=== PATIENT | male | born 1945 | race Hispanic/Latino ===

== ENCOUNTER 2017-03-27 11:38 | Inpatient (IN) | payer MEDICARE, BC ==
[2017-03-27 11:38] VITALS: PULSE 72
--- NOTE | 2017-03-27 11:47 | ED PDOC ---
Arrival/HPI - General Time Seen by Provider: 03/27/17 11:40 Historian: , EMS - Critical Care Critical Care Minutes: 60 minutes - History of Present Illness Narrative History of Present Illness (Text): 03/27/17 11:41 A 71 year old male brought into the emergency department by EMS in cardiac arrest. As per family, patient was taking a shower when they heard a "thump". They called 911, BLS responded and found patient unresponsive in ventricular fibrillation. Patient was shocked twice, continued in ventricular fibrillation. Medics then responded, patient was shocked again and CPR was performed. Patient was intubated and treated with 1 epinephrine and 300 amiodarone. Patient regained pulse, but is now unresponsive to verbal or painful stimuli. Time/Duration: Prior to Arrival Symptom Course: Unchanged Quality: Other Context: Home Associated Symptoms (Text): 03/27/17 13:10 As per family and EMS. Patient was taking a shower. The heard a thud. She went up into the bathroom to find patient unresponsive. He did hit his head on the toilet and was half in the shower. She called 911. BLS responded and an AED was placed and patient was defibrillated twice. Medics then arrived and found the patient in ventricular fibrillation. He was again defibrillated and given epinephrine. He converted into normal sinus rhythm. He then again went into ventricular fibrillation he was treated with additional defibrillation and amiodarone IV. He converted into normal sinus rhythm. He was intubated in route. He is unresponsive to verbal and painful stimuli. His pupils are fixed and dilated. There is no corneal reflex. Past Medical History - Provider Review Nursing Documentation Reviewed: Yes - Infectious Disease Hx of Infectious Diseases: None - Tetanus Immunization Tetanus Immunization: Unknown - Cardiac Hx Pacemaker: No - Pulmonary Hx Asthma: Yes Hx Chronic Obstructive Pulmonary Disease (COPD): Yes - Neurological Hx Paralysis: No - HEENT Hx HEENT Disorder: No - Renal Hx Renal Disorder: No - Endocrine/Metabolic Hx Hypothyroidism: Yes - Hematological/Oncological Hx Blood Transfusions: No Hx Blood Transfusion Reaction: No - Integumentary Hx Dermatological Disorder: No - Musculoskeletal/Rheumatological Hx Musculoskeletal Disorders: Yes - Gastrointestinal Hx Gastrointestinal Disorders: No - Genitourinary/Gynecological Hx Genitourinary Disorders: No - Psychiatric Hx Emotional Abuse: No Hx Physical Abuse: No Hx Substance Use: No - Surgical History Hx Coronary Stent: Yes (April) Hx Orthopedic Surgery: Yes (right arm) - Anesthesia Hx Anesthesia Reactions: No Hx Malignant Hyperthermia: No - Suicidal Assessment Feels Threatened In Home Enviroment: No Family/Social History - Physician Review Nursing Documentation Reviewed: Yes Family/Social History: No Known Family HX Smoking Status: Former Smoker Hx Alcohol Use: No Hx Substance Use: No Hx Substance Use Treatment: No Allergies/Home Meds Allergies/Adverse Reactions: Allergies No Known Allergies Allergy (Verified 03/27/17 11:44) Home Medications: Home Meds Medication Instructions Recorded Confirmed Arformoterol [Brovana] 15 mcg IH BID 05/10/12 03/27/17 Digoxin 0.25 mg PO QAM 05/10/12 03/27/17 Aspirin [Aspir 81] 81 mg PO DAILY 05/12/12 03/27/17 Atorvastatin [Lipitor] 40 mg PO QPM 05/12/12 03/27/17 Lisinopril 5 mg PO DAILY 05/12/12 03/27/17 Ambrisentan [Letairis] 5 mg PO QAM 01/15/14 03/27/17 Budesonide 1 mg IH BID 05/07/16 05/10/16 Ergocalciferol (Vitamin D2) 50,000 iu PO SUN 05/07/16 03/27/17 [Vitamin D2] Liraglutide [Victoza 2-Rosalio] 1.8 mg SC QAM 05/07/16 03/27/17 Metformin HCl 500 mg PO BID 05/07/16 03/27/17 Theophylline Anhydrous 400 mg PO BID 05/07/16 03/27/17 [Theophylline] Tiotropium [place] Inhaler 1 inhaler INH QAM 05/07/16 03/27/17 [Spiriva Inhalation Handihaler Device] Torsemide 60 mg PO BID 05/07/16 03/27/17 Verapamil [Calan SR Tab] 180 mg PO QAM 05/07/16 03/27/17 Review of Systems - Review of Systems Systems not reviewed;Unavailable: Acuity of Condition Physical Exam Vital Signs Temp Pulse Resp BP Pulse Ox 03/27/17 12:26 86 17 170/84 H 93 L 03/27/17 11:47 98.4 F 85 15 132/68 95 Temperature: Afebrile Blood Pressure: Normal Pulse: Regular Respiratory Rate: Normal Appearance: Positive for: Well-Appearing, Non-Toxic, Comfortable Pain Distress: None Mental Status: Positive for: other (Unresponsive to verbal or painful stimuli) - Systems Exam Head: Present: Atraumatic, Normocephalic Pupils: Present: Other (Fixed and dilated) Extroacular Muscles: Present: Other (no corneal reflex) Conjunctiva: Present: Normal Respiratory/Chest: Present: Decreased Breath Sounds. No: Respiratory Distress, Accessory Muscle Use Cardiovascular: Present: Regular Rate and Rhythm, Normal S1, S2. No: Murmurs Upper Extremity: Present: Normal Inspection. No: Cyanosis, Edema Lower Extremity: Present: Edema (+2 edema bilaterally) Neurological: Present: Other (Patient is unresponsive. Unable to test sensation coordination gait and stance) Skin: Present: Warm, Dry, Normal Color. No: Rashes Psychiatric: Present: Other (Unresponsive to verbal or painful stimuli) Medical Decision Making ED Course and Treatment: 03/27/17 11:41 Impression: A 71 year old male in cardiac arrest. Patient regained pulse, but unresponsive to verbal or painful stimuli. Plan: -- Head CT -- Chest xray -- EKG -- Labs -- Blood and Urine culture -- Urinalysis -- Amiodarone -- Reassess and disposition Progress Notes: 03/27/17 12:16 EKG shows atrial fibrillation rate approximately [address] elevations inferiorly and severe ST depressions laterally right bundle branch block which is new from EKG of 05/10/2016 03/27/17 12:16 Discussed in detail with Dr. Swan who will admit to ' service. Discussed with Dr. Cortes who will treat the patient in the emergency department. Discussed with who is the district recruiter today and who will treat the patient in the emergency department. ICU resident is here. Discussed with . - Lab Interpretations Lab Results: 03/27/17 11:45 03/27/17 11:45 Lab Results 03/27/17 11:45: Sodium 140, Chloride 98, Potassium 3.3 L, Carbon Dioxide 26, Anion Gap 19, BUN 19, Creatinine 1.3, Est GFR ( Amer) > 60, Est GFR (Non- Af Amer) 54, Random Glucose 300 H, Calcium 9.2, Total Bilirubin 0.7, AST 64 H, ALT 36, Alkaline Phosphatase 112, Lactate Dehydrogenase 730 H, Total Creatine Kinase 59, Troponin I 0.02, NT-Pro-B Natriuret Pep 924 H, Total Protein 7.1, Albumin 3.8, Globulin 3.3, Albumin/Globulin Ratio 1.2 03/27/17 11:45: pO2 191 H, VBG pH 6.99 L*, VBG pCO2 108.0 H*, VBG HCO3 26.0, VBG Total CO2 29.3 H, VBG O2 Sat (Calc) 99.8 H, VBG Base Excess -8.0 L, VBG Potassium 3.4 L, Sodium 140.0, Chloride 99.0, Glucose 308 H, Lactate 9.3 H*, FiO2 21.0, Venous Blood Potassium 3.4 L 03/27/17 11:45: PT 19.4 H, INR 1.80 H, APTT 33.0 H 03/27/17 11:45: WBC 20.0 H D, RBC 4.81, Hgb 13.8 L, Hct 44.3, MCV 92.1, MCH 28.7 , MCHC 31.2, RDW 14.6 H, Plt Count 207, MPV 12.2 H, Gran % 60.6, Lymph % (Auto) 29.1, Howard % (Auto) 7.6 H, Eos % (Auto) 2.5, Baso % (Auto) 0.2, Gran # 12.11 H, Lymph # 5.8 H, Howard # 1.5 H, Eos # 0.5, Baso # 0.03 I have reviewed the lab results: Yes - RAD Interpretation Radiology Orders: 03/27/17 11:42 CHEST PORTABLE [RAD] Stat 03/27/17 11:43 HEAD W/O CONTRAST [CT] Stat Chest x-ray one view shows cardiomegaly with the tube in good position. There is a right sided infiltrate. Shop Foreman: ED Physician - Medication Orders Current Medication Orders: Albuterol/Ipratropium (Duoneb 3 Mg/0.5 Mg (3 Ml) Ud) 3 ml IH Q2H PRN PRN Reason: Shortness of Breath Albuterol/Ipratropium (Duoneb 3 Mg/0.5 Mg (3 Ml) Ud) 3 ml IH [id number] LOUISE Amiodarone HCl/Dextrose (Nexterone 360 Mg In D5w 200 Ml (Premix)) 360 mg in 200 mls @ 33.333 mls/hr IV .Q6H LOUISE; 1 MG/MIN PRN Reason: Protocol Last Admin: 03/27/17 12:10 Dose: 33.333 mls/hr Vancomycin HCl (Vancomycin 1gm) 1 gm in 250 mls @ 167 mls/hr IVPB DAILY LOUISE PRN Reason: Protocol Piperacillin Sod/Tazobactam Sod (Zosyn 2.25 Gm In 0.9% 100 Ml) 2.25 gm in 100 mls @ 100 mls/hr IVPB Q6 LOUISE PRN Reason: Protocol Stop: 03/28/17 00:59 Insulin Human Regular (Humulin R Low) 0 units SC ACHS LOUISE PRN Reason: Protocol Discontinued Medications Propofol (Diprivan) Confirm Administered Dose 1,000 mg in 100 mls @ ud .ROUTE .STK-MED ONE Stop: 03/27/17 12:58 Last Admin: 03/27/17 12:55 Dose: 10 mg Propofol (Diprivan) 100 mg IVP ONCE ONE Stop: 03/27/17 13:15 Last Admin: 03/27/17 13:15 Dose: 100 mg - Scribe Statement The provider has reviewed the documentation as recorded by the Binh Pearce Provider Scribe Attestation: All medical record entries made by the Scribe were at my direction and personally dictated by me. I have reviewed the chart and agree that the record accurately reflects my personal performance of the history, physical exam, medical decision making, and the department course for this patient. I have also personally directed, reviewed, and agree with the discharge instructions and disposition. Disposition/Present on Arrival - Present on Arrival Any Indicators Present on Arrival: No History of DVT/PE: No History of Uncontrolled Diabetes: Yes Urinary Catheter: No History of Decub. Ulcer: No History Surgical Site Infection Following: None - Disposition Have Diagnosis and Disposition been Completed?: Yes Diagnosis: Cardiac arrest, Myocardial infarction Disposition: HOSPITALIZED Disposition Time: 13:13 Patient Plan: Admission, ICU Patient Problems: Current Active Problems Problem Status Onset Cardiac arrest Acute Myocardial infarction Acute Condition: CRITICAL
[2017-03-27 12:01] LABS: ADD MANUAL DIFF? NO
[2017-03-27 12:09] LABS: BASO # 0.03 K/mm3 (0.0-2.0); BASO % 0.2 % (0.0-3.0); EOS # 0.5 (0.0-0.7); EOS % 2.5 % (1.5-5.0); GRAN # 12.11 (1.4-6.5); GRAN % 60.6 % (50.0-68.0); HEMATOCRIT 44.3 % (42.0-52.0); LYMPH # 5.8 (1.2-3.4); LYMPH % 29.1 % (22.0-35.0); MEAN CELL VOLUME 92.1 fL (80.0-105.0); MEAN CORPUSCULAR HEMOGLOBIN 28.7 pg (25.0-35.0); MEAN CORPUSCULAR HGB CONC 31.2 g/dl (31.0-37.0); MEAN PLATELET VOLUME 12.2 fl (7.0-11.0); MONO # 1.5 (0.1-0.6); MONO % 7.6 % (1.0-6.0); PLATELET COUNT 207 10^3/uL (120.0-450.0); RED CELL DISTRIBUTION WIDTH 14.6 % (11.5-14.5); VENOUS BLOOD PH 6.99 (7.32-7.43)
[2017-03-27] MEDS: Amiodarone 360 mg/D5W 200 ml 360 MG/200 ML BAG IV SCH ×3 (12:10→19:30)
[2017-03-27 12:14] LABS: ALB/GLOB RATIO 1.2 (1.1-1.8); ALKALINE PHOSPHATASE 112 U/L (38-133); ALT/SGPT 36 U/L (7-56); AST/SGOT 64 U/L (15-59); BILIRUBIN,TOTAL 0.7 mg/dL (0.2-1.3); BLOOD UREA NITROGEN 19 mg/dL (7-21); CALCIUM 9.2 mg/dL (8.4-10.5); CARBON DIOXIDE 26 mmol/L (21-33); CHLORIDE 98 mmol/L (98-107); GFR AFRICAN-AMERICAN > 60; GLUCOSE,RANDOM 300 mg/dL (70-110); POTASSIUM 3.3 mmol/L (3.6-5.0); SODIUM 140 mmol/L (132-148); TOTAL PROTEIN 7.1 g/dL (5.8-8.3)
[2017-03-27 12:15] LABS: INR 1.8 (0.93-1.08)
[2017-03-27 12:26] LABS: TROPONIN I 0.02 ng/mL
--- NOTE | 2017-03-27 12:36 | RAD ---
HISTORY: post arrest COMPARISON: 12/02/2016. FINDINGS: LUNGS: No active pulmonary disease. PLEURA: Bilateral alveolar infiltrates right greater than left. Findings left lung partially obscured by cardiomegaly and rotation. CARDIOVASCULAR: Cardiomegaly. No evidence of acute, significant cardiovascular disease. OSSEOUS STRUCTURES: No significant abnormalities. VISUALIZED UPPER ABDOMEN: Normal. OTHER FINDINGS: Satisfactory position of endotracheal tube and nasogastric tube. IMPRESSION: Bilateral infiltrates alveolar right greater than left. Satisfactory position of support apparatus.
[2017-03-27] MEDS ORDERED: Propofol 10 mg/ml 1,000 MG/100 ML VIAL ONE (12:57)
[2017-03-27] MEDS ORDERED: Propofol 10 mg/ml Inj (20 ML) IVP ONE (13:14)
[2017-03-27] MEDS ORDERED: Albuterol-Ipratrop 3 mg / 0.5 (3 ml) UD IH PRN (13:49)
[2017-03-27] MEDS ORDERED: Albuterol-Ipratrop 3 mg / 0.5 (3 ml) UD IH SCH (14:00)
[2017-03-27 14:19] VITALS: BMI 39.4
[2017-03-27 14:27] LABS: ARTERIAL BLOOD GAS HCO3 29.2 mmol/L (21-28); ARTERIAL BLOOD GAS O2 CAPACITY 18.3 mL/dl (16-24); ARTERIAL BLOOD GAS O2 CONTENT 17.8 ML/dl (15-23); ARTERIAL BLOOD HGB O2 SAT 94.8 % (95.0-98.0); CARBOXYHEMOGLOBIN 1.8 % (0.5-1.5); HHB 2.5 % (0-5); METHEMOGLOBIN 0.9 % (0.0-3.0)
[2017-03-27 14:29] LABS: URINE BILIRUBIN NEGATIVE (NEGATIVE); URINE BLOOD LARGE (NEGATIVE); URINE GLUCOSE (UA) 250 mg/dL (NEGATIVE); URINE KETONE NEGATIVE (NEGATIVE); URINE LEUKOCYTE ESTERASE NEGATIVE Leu/uL (NEGATIVE); URINE PROTEIN >=300 mg/dL (<30 mg/dL)
[2017-03-27 14:31] LABS: ARTERIAL BLOOD GAS PH 7.17 (7.35-7.45)
--- NOTE | 2017-03-27 14:34 | CT ---
PROCEDURE: CT HEAD WITHOUT CONTRAST. HISTORY: ams COMPARISON: None available. TECHNIQUE: Axial computed tomography images were obtained through the head/brain without intravenous contrast. Radiation dose: Total exam DLP = 774 mGy-cm. This CT exam was performed using one or more of the following dose reduction techniques: Automated exposure control, adjustment of the mA and/or kV according to patient size, and/or use of iterative reconstruction technique. FINDINGS: HEMORRHAGE: No intracranial hemorrhage. BRAIN: 3 cm mass inthe high left frontal lobe with vasogenic edema.. No atrophy or chronic microvascular ischemic changes. VENTRICLES: Unremarkable. No hydrocephalus. CALVARIUM: Unremarkable. PARANASAL SINUSES: Unremarkable as visualized. No significant inflammatory changes. MASTOID AIR CELLS: Unremarkable as visualized. No inflammatory changes. OTHER FINDINGS: None. IMPRESSION: 3 cm mass in the left lhigh frontal lobe with vasogenic edema. Question intraparenchymal versus extra axial mass.
[2017-03-27 14:37] LABS: URINE APPEARANCE CLOUDY (CLEAR); URINE COLOR YELLOW (YELLOW)
[2017-03-27 14:39] LABS: URINE AMORPHOUS SEDIMENT MODERATE; URINE RBC TNTC /hpf (0-2)
[2017-03-27] MEDS: Vancomycin 1gm in NS 250ml 1 GM/250 ML BAG IVPB SCH (14:40)
[2017-03-27 15:42] LABS: VENOUS BLOOD GAS BASE EXCESS -0.6 mmol/L (0.0-2.0); VENOUS BLOOD PH 7.27 (7.32-7.43)
[2017-03-27] MEDS: Insulin Reg-LOW-Coverage SC SCH ×2 (16:02→21:58)
[2017-03-27] MEDS ORDERED: Sodium Chloride 0.9% 1,000 ML IV SCH (16:45)
--- NOTE | 2017-03-27 17:16 | CON ---
DATE: 03/27/2017 REQUESTING PHYSICIAN: Dr. Swan. CHIEF COMPLAINT: The patient presented with having fallen in the bathroom at home and cardiac arrest secondary to ventricular fibrillation. HISTORY OF PRESENT ILLNESS: The patient is a 71-year-old morbidly obese male with a history of obstr uctive sleep apnea, COPD, coronary artery disease with stents, hypothyroidism, diabetes, hypertension who presented to the hospital having been found in the bathroom and family stated that he had fallen and EMS found the patient in cardiac arrest, CPR was done. The patient had required CPR and shocks x 3. At this time, he has been admitted to the intensive care unit. The patient upon arrival to the hospital was intubated on the ventilator and continues to require ventilator assistance. He has pup ils that are fixed and is unresponsive at this time. PAST MEDICAL HISTORY: As above. ALLERGIES: No known allergies. CURRENT MEDICATIONS: Can be evaluated as per the nurse's intake form. SOCIAL HISTORY: The patient is a former smoker. No ETOH abuse. No drug abuse. FAMILY HISTORY: Noncontributory. REVIEW OF SYSTEMS: Unable to obtain secondary to the fact that the patient is unresponsive on the ve ntilator. PHYSICAL EXAMINATION: VITAL SIGNS: His temperature is 98.4, his pulse is 86, respirations are 17, and BP is 170/84. SKIN: Warm and dry. HEAD: Atraumatic, normocephalic. EYES: Fixed and dilated. EARS, NOSE AND THROAT: Seem to be within normal limits. NECK: Supple, no JVD, no thyroid enlargement, no lymph nodes. HEART: Has regular rate and rhythm, normal S1, S2. LUNGS: Reveal bilateral rhonchi. ABDOMEN: Soft, obese. Decreased bowel sounds. No organomegaly noted. GENITALIA AND RECTAL: Deferred. MUSCULOSKELETAL: No joint deformities. EXTREMITIES: Reveal 2+ lower extremity edema. NEUROLOGIC: The patient is unresponsive on the ventilator. LABORATORY DATA: As far as his chest x-ray is concerned, patient has bilateral alveolar infiltrates, right greater than left. His laboratories reveal a white count of 20.0, hemoglobin 13.8, hematocrit 44.3 with platelets of 207,000. The patient's PT is 19.4, INR is 1.8 and PTT is 33. Sodium is 140, potassium 3.3, chloride 98, CO2 of 26 with a BUN of 19, creatinine of 1.3 and a random glucose is 30 0. Note the LDH is 730. BNP is 924. IMPRESSION: This patient has had ventricular fibrillation arrest in the field/cardiac arrest and pre sently has respiratory failure requiring ventilator support. The patient has encephalopathy, most li norm anoxic in origin and bilateral pneumonia, possible aspiration being in the etiology. He has obst ructive sleep apnea, coronary artery disease, diabetes, hypertension, morbid obesity, hypothyroidism, coronary artery disease with stents placed. PLAN: We will continue with ventilator support. At present, his FIO2 is 80% and we will follow his chest x-ray and arterial blood gas closely. The patient had a CT scan of the head and official resul ts are pending. We will continue with amiodarone and propofol and continue with aggressive pulmonary toilet. The patient will get antibiotics of Zosyn and vancomycin and we will call for ID consult. The patient has had consults from neuro as well as neurosurgery. We will follow his electrolytes and correct as needed. Also, will get septic workup and we will continue to treat aggressively along wi th the other consultants and the primary care doctor. Antonio Petersen MD cc: [id number] TT: 03/27/2017 17:16:02 Confirmation # [id number] Dictation # [id number] misa
[2017-03-27 17:30] LABS: ABG MECHANICAL RATE 20; ARTERIAL BLOOD GAS HCO3 13.8 mmol/L (21-28); ATERIAL BLOOD GAS PEEP 8
[2017-03-27 17:31] LABS: ARTERIAL BLOOD GAS PH 7.18 (7.35-7.45)
[2017-03-27] MEDS ORDERED: Sodium Bicarbonate (8.4%) 50 Meq Syringe IVP ONE (17:36)
[2017-03-27] MEDS: Propofol 10 mg/ml 1,000 MG/100 ML VIAL IV PRN (17:43)
[2017-03-27] MEDS ORDERED: Piperacillin/Tazobact 2.25gm 2.25 GM/100 ML BAG IVPB SCH (18:00)
--- NOTE | 2017-03-27 18:12 | CON ---
DATE: 03/27/2017 Cardiology consultation (For Dr. Luu). HISTORY OF PRESENT ILLNESS: The patient is a 71-year-old male who had a witnessed syncopal episode, which was associated with CPR as well as 3 episodes of defibrillation by EMS. The patient arrived in the Emergency Room intubated. PAST MEDICAL HISTORY: Is notable for PTCA and stent by Dr. Luu x 3. He suffers from hypertension and hypercholesterolemia. According to the family, he denies chest pain recently. He suffers from hypertension and diabetes me llitus. REVIEW OF SYSTEMS: Unavailable. PHYSICAL EXAMINATION: VITAL SIGNS: Blood pressure is 170/84, the heart rate is in the 70's. NECK: Negative JVD. LUNGS: Decreased breath sounds without rales. HEART: Reveals S1, S2. EXTREMITIES: Without edema. LABORATORIES: Shows diffuse ST-T changes consistent with coronary and possible brain ischemia and me tabolic abnormalities. His first troponin is negative. Glucose is 300. Potassium is 3.3 with a hemoglobin of 13.8. IMPRESSION: 1. Ventricular fibrillation arrest. 2. Cardiopulmonary arrest. 3. History of coronary artery disease. 4. Diabetes mellitus. 5. Hypertension. 6. Anoxic encephalopathy. His CT scan of the head shows no bleed, but however, shows a 3 cm mass in the frontal lobe. This may be an incidental finding and unlikely related to his acute event. Given these findings, the patient will need continued hemodynamic support. I have discussed with the oracle forms developer about possible cooling protocol for his acute anoxic encephalopathy. Je Cortes MD cc: [id number] TT: 03/27/2017 18:11:52 Confirmation # [id number] Dictation # [id number] kelsey
--- NOTE | 2017-03-27 19:09 | HP ---
I saw the patient in the intensive care unit, bed 3. He came to the Emergency Room with a cardiac arrest. He is a 71-year-old man who through the 's history was taking a shower, then they heard a thump and called 911. BLS responded and found patient unresponsive in ventricular fibrillation, was shocked twice in the field. Continued ventricular fibrillation and was shocked again and CPR was performed. He was intubated, given epinephrine and amiodarone. He regained a pulse, still unresponsive in the intensive care unit now on the ventilator, multiple antibiotics and fluids. He is unable to respond to verbal or painful stimuli. He is currently in bed with multiple shocking tremor type motions. PAST MEDICAL HISTORY: He has a past medical history of COPD, asthma, hypothyroid, musculoskeletal issues, coronary stent in April in the right arm. FAMILY HISTORY: Hypertension in the family. SOCIAL HISTORY: He is a former smoker, no alcohol, no drugs. ALLERGIES: No known drug allergies. MEDICATIONS: He is on Brovana, digoxin, aspirin, Lipitor, lisinopril, Letairis , budesonide, vitamin D. He was on a Z-Pack, metformin, theophylline, anhydrase , Tiotropium bromide inhaler, Spiriva, torsemide, verapamil. He was recently just in his primary care doctor's office about a week and a half ago. REVIEW OF SYSTEMS: He is unresponsive on the ventilator. PHYSICAL EXAMINATION: VITAL SIGNS: She has 98.4 temp, 85 pulse, 15 respiratory rate, 170/84 and 132/ 68 blood pressures, 95% O2 sat. GENERAL: Head atraumatic, normocephalic. He is not alert. HEART: Regular rate. LUNGS: Decreased breath sounds but clear to auscultation, mild congestion. ABDOMEN: Soft, obese, nontender to palpation. No palpable masses appreciated. EXTREMITIES: With +2 edema. NEUROLOGIC: He is unresponsive. NECK: Thyroid midline. LABORATORY DATA: He had multiple tests. He has a urine which shows large blood , moderate amorphous sediment, leukocytes are negative. Had a 140 sodium, potassium 3.3; he will get some potassium replacement. BUN 19, creatinine 1.3, GFR is 54, sugar is 300, will put him on insulin coverage. Calcium is 9.2, total bili is 0.7, AST is 64, ALT is 36, alkaline phosphatase 112/50, lactic dehydrogenase is 730. Total creatine kinase 59, troponin 0.02. BNP was 924. Total protein 7.1, albumin 3.8. Blood gas showed a pO2 of 86 and 62. He has a 1.8 INR. White count is 20,000, hemoglobin 13.8, hematocrit 44.3, platelets of 207. He had a chest x-ray, which showed bilateral infiltrates, right greater than left. He also had a CAT scan of the head, and this showed a 3 cm brain mass high left frontal lobe, vasogenic edema. He is going to have multiple consults with the aircraft load controller, cardiology, pulmonology, infectious disease, neurologist. He is on amiodarone, propofol, albuterol, insulin coverage, Keppra, potassium replacement, propofol, IV fluids , vancomycin and Zosyn. He is in deep trouble. He is in the intensive care unit with cardiac arrest, a 3 cm brain mass, bilateral pneumonia, congestive heart failure, low potassium, leukocytosis versus sepsis. Continue with aggressive treatment and care. I discussed at length with the family, the wood bucker and the aircraft load controller and also went over with the resident orders. Will continue with aggressive treatment and care in the intensive care unit. Chepe Swan DO cc: [id number] TT: 03/27/2017 19:07:59 dn [email or web address]
[2017-03-27] MEDS ORDERED: levETIRAcetam 1,000 MG in Sodium Chloride 0.9% 100 ML IV ONE (19:15)
[2017-03-27] MEDS: Albuterol-Ipratrop 3 mg / 0.5 (3 ml) UD IH SCH ×2 (20:00)
[2017-03-27 20:35] LABS: POTASSIUM 4.1 mmol/L (3.6-5.0)
[2017-03-27 20:51] LABS: TROPONIN I 2.51 ng/mL
[2017-03-27] MEDS: Meropenem 1g/NS 100mL IVPB 1 GM/100 ML PIGGYBACK IVPB SCH (21:59)
[2017-03-28] MEDS: Amiodarone 360 mg/D5W 200 ml 360 MG/200 ML BAG IV SCH ×3 (01:42→12:00)
[2017-03-28 02:24] LABS: VENOUS BLOOD GAS BASE EXCESS -4.3 mmol/L (0.0-2.0); VENOUS BLOOD PH 7.14 (7.32-7.43)
[2017-03-28] MEDS: Propofol 10 mg/ml 1,000 MG/100 ML VIAL IV PRN ×4 (02:29→21:33)
[2017-03-28] MEDS: Albuterol-Ipratrop 3 mg / 0.5 (3 ml) UD IH SCH ×4 (02:30→20:00)
[2017-03-28 03:43] LABS: TROPONIN I 3.02 ng/mL
[2017-03-28 05:52] LABS: ARTERIAL BLOOD GAS HCO3 26.5 mmol/L (21-28); ARTERIAL BLOOD GAS PH 7.26 (7.35-7.45)
[2017-03-28 07:17] LABS: MAGNESIUM 1.9 mg/dL (1.7-2.2); PHOSPHOROUS 4.3 mg/dL (2.5-4.5)
[2017-03-28] MEDS: Budesonide 0.5 mg/2 ml Inhal Susp UD IH SCH ×2 (07:40→20:00)
--- NOTE | 2017-03-28 08:10 | CON ---
DATE: 03/27/2017 HISTORY OF PRESENT ILLNESS: A 71-year-old male brought by EMS with a cardiac arrest. The patient wa s taking shower when they heard thump. The patient fell, called 911. The patient became unresponsiv e and was in ventricular fibrillation. The patient was shocked 2-3 times and intubated and brought h im here. PAST MEDICAL HISTORY: Asthma and coronary stents and orthopedic surgery, right arm. ALLERGIES: No known drug allergies. HOME MEDICATIONS: Digoxin, aspirin, atorvastatin, Lipitor, lisinopril, metformin, PHYSICAL EXAMINATION: The patient is unresponsive, intubated. The patient will occasionally have a jerking movement, possibly secondary to hypoxia. Blood pressure 132/68. Unresponsive, not following any commands. Spontaneous movement of the extremities noted. Deep tendon reflexes 1+. Both planta rs downgoing. Sensory, cerebellar gait deferred. IMPRESSION: Hypoxic encephalopathy, status post cardiac arrest and CAT scan of the head was done and showed left frontal mass, possibly meningioma. LABORATORY DATA: WBC 20, hemoglobin 13.8, hematocrit 44.3, platelet 207, glucose low, sodium 140, po tassium 3.3, chloride 98, CO2 of 26, glucose 300, BUN 19, creatinine 1.3 and workup in progress. CAT scan of the head was done. IMPRESSION AND PLAN: The patient was also seen by Dr. Cortes, the inspector open die, and there was a 3 cm m ass in the left frontal lobe and called consult for neurosurgeon, , and gave him 2 mg of Ativan for jerking movement and also put him on Keppra. Prognosis guarded. Follow up. Zeke Mills MD cc: [id number] TT: 03/28/2017 03:05:42 Confirmation # [id number] Dictation # [id number] mn
[2017-03-28] MEDS: Meropenem 1g/NS 100mL IVPB 1 GM/100 ML PIGGYBACK IVPB SCH ×2 (09:04→21:17)
[2017-03-28] MEDS: Vancomycin 1gm in NS 250ml 1 GM/250 ML BAG IVPB SCH (09:06)
[2017-03-28 09:10] LABS: BASO # 0.01 K/mm3 (0.0-2.0); GRAN # 21.69 (1.4-6.5); GRAN % 90.3 % (50.0-68.0); HEMATOCRIT 39.7 % (42.0-52.0); LYMPH # 0.6 (1.2-3.4); LYMPH % 2.5 % (22.0-35.0); MEAN CELL VOLUME 87.8 fL (80.0-105.0); MEAN CORPUSCULAR HEMOGLOBIN 27.9 pg (25.0-35.0); MEAN CORPUSCULAR HGB CONC 31.7 g/dl (31.0-37.0); MEAN PLATELET VOLUME 11.9 fl (7.0-11.0); MONO # 1.7 (0.1-0.6); MONO % 7.2 % (1.0-6.0); PLATELET COUNT 183 10^3/uL (120.0-450.0); RED CELL DISTRIBUTION WIDTH 14.8 % (11.5-14.5); VENOUS BLOOD GAS BASE EXCESS 0.5 mmol/L (0.0-2.0); VENOUS BLOOD PH 7.26 (7.32-7.43)
[2017-03-28 09:11] LABS: ADD MANUAL DIFF? NO
--- NOTE | 2017-03-28 09:18 | CARD ---
APPROVED REPORT EKG Measurement Heart [id number] <Conclusion> Atrial fibrillation Right bundle branch block ST elevation, consider inferior injury or acute infarct ACUTE RI STTW changes c/w ischemia
[2017-03-28] MEDS: Insulin Reg-LOW-Coverage SC SCH ×2 (09:23→14:25)
[2017-03-28 09:26] LABS: ALB/GLOB RATIO 1.2 (1.1-1.8); BILIRUBIN,TOTAL 0.7 mg/dL (0.2-1.3); CALCIUM 8.9 mg/dL (8.4-10.5); POTASSIUM 3.6 mmol/L (3.6-5.0); TOTAL PROTEIN 6.8 g/dL (5.8-8.3)
--- NOTE | 2017-03-28 10:52 | RAD ---
HISTORY: intubated COMPARISON: 03/27/2017 FINDINGS: LUNGS: There is a pattern of pulmonary edema that is unchanged right greater than left. Endotracheal and nasogastric tube in satisfactory position PLEURA: No significant pleural effusion identified, no pneumothorax apparent. CARDIOVASCULAR: Moderate cardiomegaly OSSEOUS STRUCTURES: No significant abnormalities. VISUALIZED UPPER ABDOMEN: Normal. OTHER FINDINGS: None. IMPRESSION: There is a pattern of pulmonary edema that is unchanged right greater than left. Endotracheal and nasogastric tube in satisfactory position
--- NOTE | 2017-03-28 11:31 | CP.PCM.CON ---
History of Present Illness - History of Present Illness History of Present Illness: 71 year old male with PMH of CAD S/P PCI, chronic CHF, DM, HTN, hyothyroidism, history of right arm surgery was brought in to [facility] after he was found unresponsive in the bathroom and sustaining a fall with possible head trauma. EMS was called and arrived in the patient's home and BLS and ACLS were initiated and the patient was resuscitated (which included cardiac defibrillation) and was intubated in the field. In the ED, the patient was found to have unconscious and placed on the ventilator. The patient was noted to be hypothermic and with leukocytosis. He was immediately brought to the ICU for closer observation and management. Patient is being treated for possible acute coronary event. Infectious diseases consult is requested to further evaluate and manage for the possibility of sepsis in this patient. Review of Systems - Review of Systems All systems: reviewed and no additional remarkable complaints except (as per HPI ) Past Patient History - Infectious Disease Hx of Infectious Diseases: None - Tetanus Immunizations Tetanus Immunization: Unknown - Past Social History Smoking Status: Former Smoker - CARDIAC Hx Congestive Heart Failure: Yes Hx Pacemaker: No - PULMONARY Hx Asthma: Yes Hx Chronic Obstructive Pulmonary Disease (COPD): Yes - NEUROLOGICAL Hx Neurological Disorder: No - HEENT Hx HEENT Problems: No - RENAL Hx Chronic Kidney Disease: No - ENDOCRINE/METABOLIC Hx Diabetes Mellitus Type 2: Yes Hx Hypothyroidism: Yes - HEMATOLOGICAL/ONCOLOGICAL Hx Blood Disorders: No - INTEGUMENTARY Hx Dermatological Problems: No - MUSCULOSKELETAL/RHEUMATOLOGICAL Hx Falls: Yes - GASTROINTESTINAL Hx Gastrointestinal Disorders: No - GENITOURINARY/GYNECOLOGICAL Hx Genitourinary Disorders: No - PSYCHIATRIC Hx Emotional Abuse: No Hx Physical Abuse: No - SURGICAL HISTORY Hx Coronary Stent: Yes (April) Hx Orthopedic Surgery: Yes (right arm) - ANESTHESIA Hx Anesthesia Reactions: No Hx Malignant Hyperthermia: No Meds Allergies/Adverse Reactions: Allergies Allergy/AdvReac Type Severity Reaction Status Date / Time No Known Allergies Allergy Verified 03/27/17 11:44 - Medications Medications: Current Medications Albuterol/Ipratropium (Duoneb 3 Mg/0.5 Mg (3 Ml) Ud) 3 ml IH Q2H PRN PRN Reason: Shortness of Breath Albuterol/Ipratropium (Duoneb 3 Mg/0.5 Mg (3 Ml) Ud) 3 ml IH [id number] LOUISE Last Admin: 03/28/17 02:30 Dose: 3 ml Vancomycin HCl (Vancomycin 1gm) 1 gm in 250 mls @ 167 mls/hr IVPB DAILY LOUISE PRN Reason: Protocol Last Admin: 03/27/17 14:40 Dose: 167 mls/hr Propofol (Diprivan) 1,000 mg in 100 mls @ 3.742 mls/hr IV .Q24H PRN; Protocol; 5 MCG/KG/MIN PRN Reason: TITRATE PER MD ORDER Last Titration: 03/28/17 05:59 Dose: 30 mcg/kg/min, 22.453 mls/hr Sodium Bicarbonate 100 meq/ (Sodium Chloride) 1,100 mls @ 50 mls/hr IV .Q22H LOUISE Last Admin: 03/27/17 18:28 Dose: 50 mls/hr Meropenem 1g/NS 100mL IVPB (Meropenem 1g/Ns 100ml Ivpb) 1 gm in 100 mls @ 100 mls/hr IVPB Q12 LOUISE PRN Reason: Protocol Stop: 04/05/17 22:01 Last Admin: 03/27/17 21:59 Dose: 100 mls/hr Amiodarone HCl/Dextrose (Nexterone 360 Mg In D5w 200 Ml (Premix)) 360 mg in 200 mls @ 33.333 mls/hr IV .Q6H LOUISE; 1 MG/MIN PRN Reason: Protocol Last Admin: 03/28/17 01:43 Dose: Not Given Amiodarone HCl/Dextrose (Nexterone 360 Mg In D5w 200 Ml (Premix)) 360 mg in 200 mls @ 16.667 mls/hr IV .Q12H LOUISE; 0.5 MG/MIN PRN Reason: Protocol Last Admin: 03/28/17 01:42 Dose: 16.667 mls/hr Insulin Human Regular (Humulin R Low) 0 units SC ACHS LOUISE PRN Reason: Protocol Last Admin: 03/27/17 21:58 Dose: 4 units Lorazepam (Ativan) 1 mg IVP Q6H PRN; Protocol PRN Reason: Seizure activity Last Admin: 03/28/17 02:29 Dose: 1 mg Physical Exam - Constitutional Appears: Other (Intubated, sedated) - Head Exam Head Exam: NORMAL INSPECTION - ENT Exam Additional comments: ET tube in place - Neck Exam Neck exam: Negative for: Lymphadenopathy, Meningismus - Respiratory Exam Respiratory Exam: Decreased Breath Sounds - Cardiovascular Exam Cardiovascular Exam: +S1, +S2 - GI/Abdominal Exam GI & Abdominal Exam: Soft. absent: Tenderness Results - Vital Signs Recent Vital Signs: Last Vital Signs Temp 92.3 F L 03/28/17 05:01 Pulse 62 03/28/17 05:07 Resp 20 03/27/17 15:45 BP 119/81 03/28/17 05:01 Pulse Ox 95 03/28/17 05:01 - Labs Result Diagrams: 03/28/17 09:00 03/28/17 09:00 Labs: Laboratory Results - last 24 hr 03/27/17 03/27/17 03/27/17 14:20 14:21 15:25 pCO2 80 H* pO2 86.0 62 H HCO3 29.2 H ABG pH 7.17 L* ABG Total CO2 31.7 H ABG O2 Saturation 97.4 ABG O2 Content 17.8 ABG Base Excess -1.4 ABG Hemoglobin 13.3 ABG Carboxyhemoglobin 1.8 H POC ABG HHb (Measured) 2.5 ABG Methemoglobin 0.9 ABG O2 Capacity 18.3 ABG Potassium VBG pH 7.27 L VBG pCO2 60.0 VBG HCO3 27.6 VBG Total CO2 29.4 H VBG O2 Sat (Calc) 94.8 H VBG Base Excess -0.6 L VBG Potassium 3.3 L Hgb O2 Saturation 94.8 L Sodium 139.0 Chloride 100.0 Glucose 322 H Lactate 5.0 H* Mechanical Rate FiO2 100.0 21.0 Tidal Volume PEEP Potassium POC Glucose (mg/dL) Lactate Dehydrogenase Total Creatine Kinase CK-MB (CK-2) CK-MB (CK-2) % Troponin I NT-Pro-B Natriuret Pep Arterial Blood Potassium Venous Blood Potassium 3.3 L Urine Color Yellow Urine Appearance Cloudy Urine pH 6.0 Ur Specific [place] >= 1.030 Urine Protein >=300 H Urine Glucose (UA) 250 H Urine Ketones Negative Urine Blood Large H Urine Nitrate Negative Urine Bilirubin Negative Urine Urobilinogen 1.0 H Ur Leukocyte Esterase Negative Urine RBC Tntc Urine WBC 5 - 10 Ur Epithelial Cells 10 - 12 Amorphous Sediment Moderate 03/27/17 03/27/17 03/27/17 15:56 17:25 20:20 pCO2 37 pO2 68.0 L HCO3 13.8 L ABG pH 7.18 L* ABG Total CO2 14.9 L ABG O2 Saturation 95.8 ABG O2 Content ABG Base Excess -13.5 L ABG Hemoglobin ABG Carboxyhemoglobin POC ABG HHb (Measured) ABG Methemoglobin ABG O2 Capacity ABG Potassium 1.9 L* VBG pH VBG pCO2 VBG HCO3 VBG Total CO2 VBG O2 Sat (Calc) VBG Base Excess VBG Potassium Hgb O2 Saturation Sodium 151.0 H Chloride 128.0 H Glucose 184 H Lactate 4.0 H* Mechanical Rate 20 FiO2 100.0 Tidal Volume 530 PEEP 8 Potassium 4.1 POC Glucose (mg/dL) 288 H Lactate Dehydrogenase 873 H Total Creatine Kinase 350 H CK-MB (CK-2) 28.3 H CK-MB (CK-2) % 8.1 H Troponin I 2.51 H* D NT-Pro-B Natriuret Pep 954 H Arterial Blood Potassium 1.9 L* Venous Blood Potassium Urine Color Urine Appearance Urine pH Ur Specific [place] Urine Protein Urine Glucose (UA) Urine Ketones Urine Blood Urine Nitrate Urine Bilirubin Urine Urobilinogen Ur Leukocyte Esterase Urine RBC Urine WBC Ur Epithelial Cells Amorphous Sediment 03/27/17 03/28/17 03/28/17 22:18 02:05 02:05 pCO2 pO2 46 39 HCO3 ABG pH ABG Total CO2 ABG O2 Saturation ABG O2 Content ABG Base Excess ABG Hemoglobin ABG Carboxyhemoglobin POC ABG HHb (Measured) ABG Methemoglobin ABG O2 Capacity ABG Potassium VBG pH 7.10 L* 7.14 L* VBG pCO2 79.0 H* 78.0 H* VBG HCO3 24.5 26.6 VBG Total CO2 26.9 29.0 H VBG O2 Sat (Calc) 81.5 H 76.3 H VBG Base Excess -7.0 L -4.3 L VBG Potassium 3.8 3.7 Hgb O2 Saturation Sodium 142.0 138.0 Chloride 99.0 99.0 Glucose 393 H 329 H Lactate 10.1 H* 8.0 H* Mechanical Rate FiO2 21.0 21.0 Tidal Volume PEEP Potassium POC Glucose (mg/dL) Lactate Dehydrogenase 904 H Total Creatine Kinase 471 H CK-MB (CK-2) 43.8 H CK-MB (CK-2) % 9.3 H Troponin I 3.02 H* D NT-Pro-B Natriuret Pep Arterial Blood Potassium Venous Blood Potassium 3.8 3.7 Urine Color Urine Appearance Urine pH Ur Specific [place] Urine Protein Urine Glucose (UA) Urine Ketones Urine Blood Urine Nitrate Urine Bilirubin Urine Urobilinogen Ur Leukocyte Esterase Urine RBC Urine WBC Ur Epithelial Cells Amorphous Sediment 03/28/17 05:30 pCO2 59 H pO2 63.0 L HCO3 26.5 ABG pH 7.26 L ABG Total CO2 28.3 H ABG O2 Saturation 95.6 ABG O2 Content ABG Base Excess -1.6 ABG Hemoglobin ABG Carboxyhemoglobin POC ABG HHb (Measured) ABG Methemoglobin ABG O2 Capacity ABG Potassium 3.3 L VBG pH VBG pCO2 VBG HCO3 VBG Total CO2 VBG O2 Sat (Calc) VBG Base Excess VBG Potassium Hgb O2 Saturation Sodium 140.0 Chloride 105.0 Glucose 273 H Lactate 5.4 H* Mechanical Rate FiO2 100.0 Tidal Volume PEEP Potassium POC Glucose (mg/dL) Lactate Dehydrogenase Total Creatine Kinase CK-MB (CK-2) CK-MB (CK-2) % Troponin I NT-Pro-B Natriuret Pep Arterial Blood Potassium 3.3 L Venous Blood Potassium Urine Color Urine Appearance Urine pH Ur Specific [place] Urine Protein Urine Glucose (UA) Urine Ketones Urine Blood Urine Nitrate Urine Bilirubin Urine Urobilinogen Ur Leukocyte Esterase Urine RBC Urine WBC Ur Epithelial Cells Amorphous Sediment Assessment & Plan - Assessment and Plan (Free Text) Plan: Assessment Systemic Inflammatory Response Syndrome (leukocytosis and hypothermia) probably due to cardiorespiratory arrest, etiology to be determined, R/O acute coronary syndrome; R/O sepsis CAD S/P PCI chronic CHF DM HTN hyothyroidism history of right arm surgery Plan Started patient on Vancomycin and Merrem pending blood, urine cx, CXR, PCT; follow up Cardiology recommendations will monitor clinically
[2017-03-28] MEDS ORDERED: Dexamethasone 4 mg/1 ml IVP SCH (11:45)
[2017-03-28] MEDS ORDERED: Insulin Reg-HIGH-Coverage SC SCH (11:45)
--- NOTE | 2017-03-28 11:47 | CON ---
DATE: 03/28/2017 REASON FOR CONSULTATION: Ventilator management. REFERRING PHYSICIAN: Dr. Chepe Swan History is obtained via extensive discussion with the medical chief technician. I also discussed the case with the ICU nurse at length. I have also reviewed the chart at length. The patient is a 71-year-old male with past medical history significant for coronary artery disease, status post recent cardiac stent, chronic obstructive pulmonary disease, obstructive sleep apnea, who presented to [facility] Emergency Room yesterday -- after having sustained a ventricular fibrillation arrest at home. Apparently, the patient was taking a shower, when the heard a loud thump. When the went to the bathroom, the patient ( her ) was unresponsive. EMS then arrived on the scene. The initial rhythm was consistent with ventricular fibrillation, and the patient was shocked multiple times. CPR efforts were also performed and the patient was intubated in the field. Fortunately, the patient regained pulse and blood pressure and was transported to the Emergency Room for additional care. Again, I did discuss the case with the medical chief technician and nurse at length. Prior to the above episode, there is no immediate history of shortness of breath at rest, dyspnea on exertion, cough, or sputum production. There is also no known history of preceding chest pain, coughing up of blood or chest pain -- made worse with deep respirations. There is no history of temperatures , chills or infectious exposure. No history of night sweats, weight loss or appetite change prior to the above events. No history of leg or calf pains. No history of travel. REVIEW OF SYSTEMS: No history of nausea, vomiting or diarrhea. No acute urinary symptoms. Rest is negative. ALLERGIES: No known allergies. SOCIAL HISTORY: Positive for tobacco, negative for alcohol. FAMILY HISTORY: No inheritable diseases. HOME MEDICATIONS: Include torsemide, Spiriva, theophylline, Lipitor, Brovana, Calan, metformin, digoxin, aspirin, Letairis, budesonide. PHYSICAL EXAMINATION: GENERAL: The patient is currently intubated and sedated. I am unable to arouse him at the present time by physical stimulation. VITAL SIGNS: Temperature is 92.3, pulse 62, respirations 20/20, blood pressure 119/81. HEENT: Normocephalic, atraumatic. No JVD. CARDIOVASCULAR: Positive S1, S2. No S3. LUNGS: Decreased breath sounds at the bases. Minimal bilateral rhonchi. No wheezing. EXTREMITIES: Mild edema. No cyanosis, no clubbing. GASTROINTESTINAL: Abdomen is soft, nondistended. Bowel sounds are positive. SKIN: No acute rash. NEUROLOGIC: Limited at the present time. PERTINENT LABORATORY DATA: Chest x-ray was done this morning and reviewed. There are bilateral pulmonary infiltrates noted. The infiltrates are more prevalent on the right side than the left. Arterial blood gas was done on assist control 20, tidal volume 450, FiO2 100%, 10 of PEEP. Results are: pH 7.26, pCO2 of 59, pO2 of 63. CBC: White count 20.0, hemoglobin 13.8, hematocrit 44.3, platelets of 207. Complete metabolic profile: Potassium 3.3, glucose 300, AST 64, LDH 730, B-type natriuretic peptide 924. Rest of the metabolic profile is within normal limits. Peak troponin 3.02. IMPRESSION: 1. Ventricular fibrillation arrest, status post cardiopulmonary resuscitation. 2. Respiratory failure. 3. Coronary artery disease, status post recent cardiac stent. 4. Chronic obstructive pulmonary disease. 5. Rule out aspiration pneumonia. 6. Encephalopathy. PLAN: Again, I did discuss the case with the medical chief technician and the nurse at length. Apparently, the patient collapsed yesterday when he was taking a shower. As per the above history, the heard a thump coming from the bathroom-- and then went to the bathroom herself. She then found her ( the patient) slumped over the bathtub and unresponsive. When EMS arrived on the scene, the initial rhythm was ventricular fibrillation. The patient was shocked multiple times and full cardiopulmonary resuscitation efforts were undertaken. The patient was also intubated in the field. He was then transported to the Emergency Room for additional evaluation and treatment. I did review the chest x-ray as above. There are bilateral pulmonary infiltrates noted -- right worse than left. Procalcitonin has been ordered. The patient has been started on antibiotic therapy -- for possible aspiration pneumonia. Input by Dr. Watson is noted. On physical exam, the patient is in mild bronchospasm. I will continue with the current nebulizer treatments and add inhaled Pulmicort. The patient does have a long history of chronic obstructive pulmonary disease. Cardiology evaluation is ongoing. Input by Dr. Cortes is noted. The patient is currently on an amiodarone drip. Neurologic evaluation with Dr. Mills has also been ordered. Unfortunately, the patient's mental status is poor at this point in time. Repeat chest x-ray, arterial blood gas, and laboratory work will be reordered and followed closely. The patient is critically ill at this point in time. I will discuss the above with the entire ICU team in the next few moments. I will also discuss the above with the attending physician later this morning. Thank you very much for this pulmonary consultation. Sacha Hopkins MD cc: [id number] TT: 03/28/2017 11:46:58 Confirmation # [id number] Dictation # [id number] en MTDD
[2017-03-28] MEDS ORDERED: Insulin Regular 100 UNITS in Sodium Chloride 0.9% 99 ML IV PRN ×2 (12:01→15:26)
[2017-03-28] MEDS: levETIRAcetam 1,000 MG in Sodium Chloride 0.9% 100 ML IV SCH ×2 (12:29→22:20)
--- NOTE | 2017-03-28 12:56 | CP.PCM.PN ---
<Naty Vallejo - Last Filed: 03/28/17 13:52> Subjective - Date & Time of Evaluation Date of Evaluation: 03/28/17 Time of Evaluation: 12:55 - Subjective Subjective: ICU Progress Note This is a 71Y M with PMH HTN, DM, HLD, CAD s/p 3 stents, COPD, ARIELLE s/p cardiac arrest with ROSC. Hypothermia was initiated yesterday. Patient seen and examined at bedside. There were no acute overnight events. Patient is intubated and sedated. ROS could not be obtained. Objective - Vital Signs/Intake and Output Vital Signs (last 24 hours): Temp Pulse Resp BP Pulse Ox 93.2 F L 67 21 132/88 90 L 03/28/17 11:45 03/28/17 11:45 03/28/17 09:20 03/28/17 11:45 03/28/17 11:45 Intake and Output: 03/28/17 03/28/17 06:59 18:59 Intake Total 1111 25 Output Total 400 Balance 711 25 - Medications Medications: Current Medications Albuterol/Ipratropium (Duoneb 3 Mg/0.5 Mg (3 Ml) Ud) 3 ml IH Q2H PRN PRN Reason: Shortness of Breath Albuterol/Ipratropium (Duoneb 3 Mg/0.5 Mg (3 Ml) Ud) 3 ml IH [id number] [facility] Last Admin: 03/28/17 07:52 Dose: 3 ml Budesonide (Pulmicort Respules) 0.5 mg IH [id number] LOUISE Dexamethasone (Decadron Inj) 4 mg IVP Q6H LOUISE Heparin Sodium (Porcine) (Heparin) 5,000 units SC Q8 LOUISE PRN Reason: Protocol Vancomycin HCl (Vancomycin 1gm) 1 gm in 250 mls @ 167 mls/hr IVPB DAILY LOUISE PRN Reason: Protocol Last Admin: 03/28/17 09:06 Dose: 167 mls/hr Propofol (Diprivan) 1,000 mg in 100 mls @ 3.742 mls/hr IV .Q24H PRN; Protocol; 5 MCG/KG/MIN PRN Reason: TITRATE PER MD ORDER Last Admin: 03/28/17 08:00 Dose: 40 mcg/kg/min, 29.937 mls/hr Sodium Bicarbonate 100 meq/ (Sodium Chloride) 1,100 mls @ 50 mls/hr IV .Q22H LOUISE Last Admin: 03/27/17 18:28 Dose: 50 mls/hr Meropenem 1g/NS 100mL IVPB (Meropenem 1g/Ns 100ml Ivpb) 1 gm in 100 mls @ 100 mls/hr IVPB Q12 LOUISE PRN Reason: Protocol Stop: 04/05/17 22:01 Last Admin: 03/28/17 09:04 Dose: 100 mls/hr Amiodarone HCl/Dextrose (Nexterone 360 Mg In D5w 200 Ml (Premix)) 360 mg in 200 mls @ 16.667 mls/hr IV .Q12H LOUISE; 0.5 MG/MIN PRN Reason: Protocol Last Admin: 03/28/17 01:42 Dose: 16.667 mls/hr Levetiracetam 1,000 mg/ Sodium (Chloride) 110 mls @ 460 mls/hr IV Q12 LOUISE Last Admin: 03/28/17 12:29 Dose: 460 mls/hr Insulin Human Regular 100 (units/ Sodium Chloride) 100 mls @ 0 mls/hr IV .Q0M PRN; Protocol; Per Protocol PRN Reason: TITRATE PER MD ORDER Lorazepam (Ativan) 1 mg IVP Q6H PRN; Protocol PRN Reason: Seizure activity Last Admin: 03/28/17 08:00 Dose: 1 mg Pantoprazole Sodium (Protonix Inj) 40 mg IVP DAILY LOUISE Last Admin: 03/28/17 09:04 Dose: 40 mg - Labs Labs: 03/28/17 09:00 03/28/17 09:00 PT 19.4 Seconds (9.9-11.8) H 03/27/17 11:45 INR 1.80 (0.93-1.08) H 03/27/17 11:45 APTT 33.0 Seconds (23.7-30.8) H 03/27/17 11:45 - Constitutional Appears: No Acute Distress - Head Exam Head Exam: ATRAUMATIC, NORMAL INSPECTION, NORMOCEPHALIC - Eye Exam Eye Exam: Normal appearance. absent: PERRL Pupil Exam: absent: PERRL Additional comments: pupils sluggish to light reflex - ENT Exam ENT Exam: Mucous Membranes Moist - Neck Exam Neck Exam: Full ROM - Respiratory Exam Respiratory Exam: Rhonchi (bilaterally ), NORMAL BREATHING PATTERN. absent: Wheezes, Respiratory Distress - Cardiovascular Exam Cardiovascular Exam: REGULAR RHYTHM, +S1, +S2. absent: Gallop, Rubs, Murmur - GI/Abdominal Exam GI & Abdominal Exam: Soft, Normal Bowel Sounds. absent: Guarding, Rigid, Mass - Extremities Exam Extremities Exam: Pedal Edema - Neurological Exam Neurological Exam: CN II-XII Intact. absent: Alert, Awake Additional comments: Pt sedated and intubated. No withdrawal to pain stimuli - Skin Skin Exam: Dry, Normal Color, Warm Assessment and Plan - Assessment and Plan (Free Text) Assessment: This is a 71Y M with PMH HTN, DM, HLD, CAD s/p 3 stents, COPD, ARIELLE s/p cardiac arrest with ROSC. He is found to have aspiration pneumonia as well. Plan: Neuro: Intubated and sedated on propofol Neurocheck q1h EEG done- final read pending, but showed seizure activity Keppra IV Ativan prn Neuro consulted- recs appreciated Brain flow scan and brain MRI ordered CT head showed 3cm mass with vasogenic edema Decadron ordered Spoke with neurosurgery-Dr. Gomez who reports there is nothing to do at this time. Hypothermia protocol - maintain temp between 32-34C for 24hrs CV: Patient now off of amio drip due to bradycardia Dobutamine started for bradycardia Repeat EKG Echo ordered Cardio consulted- recs appreciated CXR showed pulmonary edema versus infiltrate Hypothermia protocol will be completed today and pt rewarmed Resp: Maintain spO2>90% Aspiration precaution HOB elevated on PRVC Rate: 30, TV: 450, Fio2: 60 and PEEP of 10. Continue protective lung ventilation strategy Pt in Respiratory acidosis without compensation-ABG corrected for hypothermia Maintain pH between 7.35-7.45 Continue biarb drip GI: NPO at this time Will consider enteral nutrition in future /Neprho: AYE-Cr increased to 1.8 Urine output overnight was about 17ml/hr (goal is about 65ml/hr) Continue to monitor I&O Will continue to monitor electrolytes and replace as needed ID: Leukocytosis, afebrile Lactate elevated PCT pending Septic workup pending (Blood culture, urine culture) ID consulted-recs appreciated on empiric abx for aspiration pneumonia Endo: On Insulin drip BGM q1h Maintain euglycemia- between 140-180 GI ppx: Pepcid IVP DVT ppx: Heparin SC q8h case seen, discussed and reviewed with attending. Alton Vallejo PGY1 <Rom Lao B - Last Filed: 03/28/17 17:51> Objective - Vital Signs/Intake and Output Vital Signs (last 24 hours): Temp Pulse Resp BP Pulse Ox 91.6 F L 60 21 112/50 L 93 L 03/28/17 17:45 03/28/17 17:45 03/28/17 09:20 03/28/17 17:30 03/28/17 17:45 Intake and Output: 03/28/17 03/28/17 06:59 18:59 Intake Total 1111 110 Output Total 400 Balance 711 110 - Medications Medications: Current Medications Albuterol/Ipratropium (Duoneb 3 Mg/0.5 Mg (3 Ml) Ud) 3 ml IH Q2H PRN PRN Reason: Shortness of Breath Albuterol/Ipratropium (Duoneb 3 Mg/0.5 Mg (3 Ml) Ud) 3 ml IH [id number] [facility] Last Admin: 03/28/17 13:50 Dose: 3 ml Budesonide (Pulmicort Respules) 0.5 mg IH [id number] LOUISE Last Admin: 03/28/17 07:40 Dose: 0.5 mg Dexamethasone (Decadron Inj) 4 mg IVP Q6H LOUISE Last Admin: 03/28/17 13:00 Dose: Not Given Heparin Sodium (Porcine) (Heparin) 5,000 units SC Q8 LOUISE PRN Reason: Protocol Last Admin: 03/28/17 14:58 Dose: 5,000 units Vancomycin HCl (Vancomycin 1gm) 1 gm in 250 mls @ 167 mls/hr IVPB DAILY LOUISE PRN Reason: Protocol Last Admin: 03/28/17 09:06 Dose: 167 mls/hr Sodium Bicarbonate 100 meq/ (Sodium Chloride) 1,100 mls @ 50 mls/hr IV .Q22H LOUISE Last Admin: 03/27/17 18:28 Dose: 50 mls/hr Meropenem 1g/NS 100mL IVPB (Meropenem 1g/Ns 100ml Ivpb) 1 gm in 100 mls @ 100 mls/hr IVPB Q12 LOUISE PRN Reason: Protocol Stop: 04/05/17 22:01 Last Admin: 03/28/17 09:04 Dose: 100 mls/hr Amiodarone HCl/Dextrose (Nexterone 360 Mg In D5w 200 Ml (Premix)) 360 mg in 200 mls @ 16.667 mls/hr IV .Q12H LOUISE; 0.5 MG/MIN PRN Reason: Protocol Last Admin: 03/28/17 12:00 Dose: Not Given Levetiracetam 1,000 mg/ Sodium (Chloride) 110 mls @ 460 mls/hr IV Q12 LOUISE Last Admin: 03/28/17 12:29 Dose: 460 mls/hr Insulin Human Regular 100 (units/ Sodium Chloride) 100 mls @ 0 mls/hr IV .Q0M PRN; Protocol; Per Protocol PRN Reason: TITRATE PER MD ORDER Last Admin: 03/28/17 15:41 Dose: 4 units/hr, 4 mls/hr Dobutamine HCl/Dextrose (Dobutamine/Dextrose 5% 500mg/250ml) 500 mg in 250 mls @ 19.391 mls/hr IV .[id number] PRN; Protocol; 5 MCG/KG/MIN PRN Reason: TITRATE PER PROTOCOL Last Admin: 03/28/17 13:30 Dose: 19.391 mls/hr Propofol (Diprivan) 1,000 mg in 100 mls @ 3.742 mls/hr IV .Q24H PRN; Protocol; 5 MCG/KG/MIN PRN Reason: TITRATE PER MD ORDER Last Admin: 03/28/17 15:30 Dose: 50 mcg/kg/min, 37.421 mls/hr Lorazepam (Ativan) 1 mg IVP Q6H PRN; Protocol PRN Reason: Seizure activity Last Admin: 03/28/17 08:00 Dose: 1 mg Pantoprazole Sodium (Protonix Inj) 40 mg IVP DAILY LOUISE Last Admin: 03/28/17 09:04 Dose: 40 mg - Labs Labs: 03/28/17 09:00 03/28/17 12:50 PT 22.8 Seconds (9.9-11.8) H 03/28/17 12:50 INR 2.11 (0.93-1.08) H 03/28/17 12:50 APTT 35.6 Seconds (23.7-30.8) H 03/28/17 12:50 Addendum Addendum: 03/28/17 17:[address] Lao's note
--- NOTE | 2017-03-28 12:56 | PN ---
DATE: 03/28/2017 The patient is seen and examined at bedside. He was on propofol 35 mcg per kilogram per minute. However, had a clinical seizure, which appears to be undergoing and based on EEG that has been currently recorded. Propofol drip was increased to 60 mcg per kilogram per minute. On that setting: VITAL SIGNS: Heart rate is 61. His blood pressure 132/88. His temperature 93.4, and tidal CO2 on the monitor is 44, and respiratory rate 23. He is on PRVC 530, respiratory rate 20, PEEP 10, and oxygen saturation 100%. His urine output is minimal. HEAD AND NECK: Atraumatic. LUNGS: Few crackles bibasilar. HEART: Regular rate and rhythm. S1, S2 normal. ABDOMEN: Soft, nontender, nondistended. MUSCULOSKELETAL: No C/C/E. NEUROLOGIC: The patient moves all extremities spontaneously. SKIN: Moist. PSYCHIATRIC: The patient is sedated. LABORATORY DATA: WBC 24, hemoglobin 12.6, platelet count 183. Sodium 142, potassium 3.6, chloride 98, carbon dioxide 27, BUN 32, creatinine 1.8, up from 1.4. Lactic acid 7.3, blood glucose 249. AST 81, ALT 47. ABGs showed pH 7.26. INR 1.8. MEDICATIONS: DuoNeb p.r.n. and every 6 hours, amiodarone on hold, as the patient was bradycardiac, Pulmicort inhaled, Decadron 4 mg IV q. 6, insulin drip protocol, Keppra 1 gram IV q. 12, Ativan p.r.n., meropenem, Protonix, potassium supplementation, propofol, bicarb drip, vancomycin. ASSESSMENT AND PLAN: This is a 71-year-old gentleman who presented with vfib cardiac arrest, status post return of spontaneous circulation, currently has anoxic brain injury with ongoing seizures. His propofol drip increased to 60 mcg per kilogram per minute from 35. He is on Keppra 1 gram IV q. 12. EEG recording is ongoing. MRI follows (once patient stabilized for MRI trip Pulmonary: The patient is on protective lung ventilation strategy, however, still has cardiogenic pulmonary edema. We will proceed with echocardiogram. The patient is on therapeutic hypothermia protocol, which is almost completed, and we will rewarm the patient soon. Fi02 down to 40% from 100%, PEEP still 10. Once shock resolved and patient rewarmed will proceed with diuresis in line with conservative fluid management strategy Neurology: The patient has substantial vasogenic edema with a left upper frontal lobe mass. He is on Decadron 4 mg IV q. 6. Cardiology: Cardiology service is following the patient as well. It is unclear /unlikely the patient will be a candidate for percutaneous coronary intervention given his mental status, but nevertheless, that decision will be deferred to cardiology service. Bedside Echo showed severe LV systolic dysfunction--dobutamine started with oriental orthodox of stable BP and HR. Gastrointestinal: The patient will be considered for enteral nutrition after hypothermia protocol completed, and if the patient continued to be hemodynamically relatively stable. Infectious disease: The patient has some pulmonary edema. However, no clearcut signs of ongoing infection. He is on empiric antibiotics now. Therapeutic hypothermia may predispose the patient to development of infection, thus blood culture, urine culture, and procalcitonin level were sent. Infectious disease service is following the patient as well. Endocrine: The patient has some hyperglycemia. Insulin drip started with Accu- Chek every 1 hour. Heme: There are no signs of bleeding. We will continue with deep venous thrombosis and gastrointestinal prophylaxis. maintain Hb>10 ccm time 40 min Rom Lao MD cc: [id number] TT: 03/28/2017 12:55:53 Confirmation # [id number] Dictation # [id number] jn MTDD
[2017-03-28 13:15] LABS: ALB/GLOB RATIO 1.1 (1.1-1.8); BILIRUBIN,TOTAL 0.7 mg/dL (0.2-1.3); CALCIUM 8.6 mg/dL (8.4-10.5); MAGNESIUM 1.8 mg/dL (1.7-2.2); PHOSPHOROUS 3.6 mg/dL (2.5-4.5); POTASSIUM 3.8 mmol/L (3.6-5.0); TOTAL PROTEIN 6.1 g/dL (5.8-8.3)
--- NOTE | 2017-03-28 13:27 | CP.PCM.PN ---
Subjective - Date & Time of Evaluation Date of Evaluation: 03/28/17 Time of Evaluation: 09:30 - Subjective Subjective: Medicine progress note for Dr. Vargas/Dr. Escalante service - Krishna Kauffman PGY1 Patient was seen and examined in the ICU, Bed 129-03. Patient is intubated and sedated on propofol drip. No acute overnight events were reported by nursing. Discussion was had between Dr. Vargas and the patient's regarding his current status and the aggressiveness of care to be provided. Patient is currently s/p cardiac arrest with ROSC and hypothermia protocol was initiated as per cardiology recommendations. review of systems limited due to patient status. Objective - Vital Signs/Intake and Output Vital Signs (last 24 hours): Temp Pulse Resp BP Pulse Ox 93.2 F L 51 L 21 101/53 L 99 03/28/17 13:00 03/28/17 13:00 03/28/17 09:20 03/28/17 12:45 03/28/17 13:00 Intake and Output: 03/28/17 03/28/17 06:59 18:59 Intake Total 1111 25 Output Total 400 Balance 711 25 - Medications Medications: Current Medications Albuterol/Ipratropium (Duoneb 3 Mg/0.5 Mg (3 Ml) Ud) 3 ml IH Q2H PRN PRN Reason: Shortness of Breath Albuterol/Ipratropium (Duoneb 3 Mg/0.5 Mg (3 Ml) Ud) 3 ml [facility] [id number] Last Admin: 03/28/17 07:52 Dose: 3 ml Budesonide (Pulmicort Respules) 0.5 mg IH [id number] [facility] Dexamethasone (Decadron Inj) 4 mg IVP Q6H [facility] Last Admin: 03/28/17 13:00 Dose: Not Given Heparin Sodium (Porcine) (Heparin) 5,000 units SC Q8 LOUISE PRN Reason: Protocol Vancomycin HCl (Vancomycin 1gm) 1 gm in 250 mls @ 167 mls/hr IVPB DAILY LOUISE PRN Reason: Protocol Last Admin: 03/28/17 09:06 Dose: 167 mls/hr Propofol (Diprivan) 1,000 mg in 100 mls @ 3.742 mls/hr IV .Q24H PRN; Protocol; 5 MCG/KG/MIN PRN Reason: TITRATE PER MD ORDER Last Admin: 03/28/17 08:00 Dose: 40 mcg/kg/min, 29.937 mls/hr Sodium Bicarbonate 100 meq/ (Sodium Chloride) 1,100 mls @ 50 mls/hr IV .Q22H LOUISE Last Admin: 03/27/17 18:28 Dose: 50 mls/hr Meropenem 1g/NS 100mL IVPB (Meropenem 1g/Ns 100ml Ivpb) 1 gm in 100 mls @ 100 mls/hr IVPB Q12 LOUISE PRN Reason: Protocol Stop: 04/05/17 22:01 Last Admin: 03/28/17 09:04 Dose: 100 mls/hr Amiodarone HCl/Dextrose (Nexterone 360 Mg In D5w 200 Ml (Premix)) 360 mg in 200 mls @ 16.667 mls/hr IV .Q12H LOUISE; 0.5 MG/MIN PRN Reason: Protocol Last Admin: 03/28/17 12:00 Dose: Not Given Levetiracetam 1,000 mg/ Sodium (Chloride) 110 mls @ 460 mls/hr IV Q12 LOUISE Last Admin: 03/28/17 12:29 Dose: 460 mls/hr Insulin Human Regular 100 (units/ Sodium Chloride) 100 mls @ 0 mls/hr IV .Q0M PRN; Protocol; Per Protocol PRN Reason: TITRATE PER MD ORDER Lorazepam (Ativan) 1 mg IVP Q6H PRN; Protocol PRN Reason: Seizure activity Last Admin: 03/28/17 08:00 Dose: 1 mg Pantoprazole Sodium (Protonix Inj) 40 mg IVP DAILY LOUISE Last Admin: 03/28/17 09:04 Dose: 40 mg - Labs Labs: 03/28/17 09:00 03/28/17 09:00 PT 19.4 Seconds (9.9-11.8) H 03/27/17 11:45 INR 1.80 (0.93-1.08) H 03/27/17 11:45 APTT 33.0 Seconds (23.7-30.8) H 03/27/17 11:45 - Constitutional Appears: In Acute Distress - Head Exam Head Exam: ATRAUMATIC, NORMAL INSPECTION, NORMOCEPHALIC - Respiratory Exam Respiratory Exam: Rhonchi (bilaterally). absent: Clear to Ausculation Bilateral , Wheezes - Cardiovascular Exam Cardiovascular Exam: +S1, +S2. absent: Gallop, Rubs - GI/Abdominal Exam GI & Abdominal Exam: Soft. absent: Distended, Firm, Guarding, Rigid, Tenderness , Rebound - Neurological Exam Neurological Exam: absent: Alert, Awake, Oriented x3 Additional comments: intubated and sedated on propofol drip - Skin Skin Exam: Dry, Intact, Normal Color Assessment and Plan - Assessment and Plan (Free Text) Plan: 71yo male with history of ARIELLE, HTN, DMT2, HLD, CAD s/p 3 stents, COPD presents via EMS s/p cardiac arrest with ROSC 1. Cardiac arrest 2. Anoxic encephalopathy 3. Cardiogenic edema 5. CAD 6. DM type 2 7. ARIELLE 8. HLD 9. COPD -Patient is currently intubated and sedated on propofol drip -EEG results pending -Continue with neurochecks -CXR reviewed and revealed pulmonary edema with right greater than left -MRI Brain and flow scan pending -Echocardiogram pending -CT head reviewed and revealed 3cm mass in the left frontal lobe with vasogenic edema -Hypothermia protocol initiated per ICU and cardiology recommendations -Continue with keppra and ativan PRN -Continue with meropenem and vancomycin per ID recommendations -Continue with insulin drip, fingerstick q1h, NPO -Protonix/Heparin for GI/DVT prophylaxis -Neurology following - Dr. Mills -Cardiology following - Dr. Luu -Pulmonology following - Dr. Hopkins -ID following - Dr. Watson Patient seen and case discussed with attending, Dr. Vargas
[2017-03-28 13:29] LABS: INR 2.11 (0.93-1.08); PARTIAL THROMBOPLASTIN TIME 35.6 Seconds (23.7-30.8)
[2017-03-28] MEDS: DOBUTamine 500mg/250ml D5W 500 MG/250 ML BAG IV PRN (13:30)
[2017-03-28] MEDS ORDERED: DOBUTamine 500mg/250ml D5W 500 MG/250 ML BAG ONE (13:30)
--- NOTE | 2017-03-28 14:47 | CARD ---
APPROVED REPORT EKG Measurement Heart [id number] <Conclusion> Atrial fibrillation with slow ventricular response Junctional ST depression, probably normal Prolonged QT Abnormal ECG
--- NOTE | 2017-03-28 15:02 | PN ---
DATE: 03/28/2017 REASON FOR CONSULTATION AND FOLLOWUP: Status post cardiac arrest, CPR, intubated, possible anoxic en cephalopathy. BRIEF CLINICAL HISTORY: This is a 71-year-old male with past medical history significant for chronic atrial fibrillation, on Coumadin; COPD, morbid obesity, obstructive sleep apnea, status post PTCA of circumflex and anterior descending artery 05/05/2012, and then PTCA 12/25/2012, most recent PTCA is 05/10/2016, who was in the bathing tub and suddenly collapsed. Ambulance was called. The patient __ __ BLS. Later on the patient was intubated and brought here, went into V-fib arrest, cardioverted, a nd now this patient is intubated, on propofol and amiodarone, has jerky movement. PHYSICAL EXAMINATION: VITAL SIGNS: Temperature afebrile, heart rate 59, blood pressure 125/67. HEENT: PERRLA. Extraocular muscles intact. NECK: Supple. No carotid bruits. No thyromegaly. CHEST: Clear to auscultation. HEART: S1, S2 regular. ABDOMEN: Soft. EXTREMITIES: Clubbing and cyanosis negative. BLOOD WORKUP: As follows: WBC 24,000, hemoglobin 12.3, hematocrit 39.7, platelet count 183. Chemis try shows sodium 130, potassium 3.____, chloride 99, carbon dioxide 28, anion gap of 16, BUN 34, crea tinine 1.8, lactic acid 4.7. IMPRESSION: Status post cardiopulmonary resuscitation, ventricular fibrillation arrest, possible acu te myocardial infarction, possible acute closure of the stent, status post multiple stents, percutane ous transluminal coronary angioplasty of left anterior descending and circumflex in 2011, repeat perc utaneous transluminal coronary angioplasty in 2012, and most recent percutaneous transluminal coronar y angioplasty 05/10/2016, status post cardiopulmonary resuscitation, cardiac arrest, intubated, ventr icular fibrillation arrest, obesity, diabetes, hypertension, hyperlipidemia, anoxic encephalopathy, c hronic atrial fibrillation, now with multiorgan dysfunction, increasing creatinine. RECOMMENDATION: Continue supportive care. Follow up neurologically. Overall, patient's condition i s critical. Prognosis is guarded. Will follow with you. Continue anti-seizure medications. Contin ue amiodarone. Will discuss with the . Overall condition is critical. Prognosis is extremely g uarded. Will follow with you. Paulette Luu MD cc: [id number] TT: 03/28/2017 15:01:19 Confirmation # [id number] Dictation # [id number] mn
[2017-03-28 18:43] LABS: INR 2.5 (0.93-1.08); PARTIAL THROMBOPLASTIN TIME 39.1 Seconds (23.7-30.8)
[2017-03-28 18:45] LABS: BILIRUBIN,TOTAL 0.6 mg/dL (0.2-1.3); CALCIUM 8.5 mg/dL (8.4-10.5); MAGNESIUM 1.7 mg/dL (1.7-2.2); PHOSPHOROUS 3.1 mg/dL (2.5-4.5); POTASSIUM 3.4 mmol/L (3.6-5.0); TOTAL PROTEIN 5.9 g/dL (5.8-8.3)
--- NOTE | 2017-03-28 20:09 | CARD ---
APPROVED REPORT EXAM: Two-dimensional and M-mode echocardiogram with Doppler and color Doppler. INDICATION CARDIAC ARREST 2D DIMENSIONS Left Atrium (2D)5.2 (1.6-4.0cm)IVSd1.3 (0.7-1.1cm) LVDd5.2 (3.9-5.9cm)PWd1.3 (0.7-1.1cm) LVDs2.9 (2.5-4.0cm)FS (%) 43.8 % LVEF (%)74.6 (>50%) M-Mode DIMENSIONS Aortic Root3.50 (2.2-3.7cm)Aortic Cusp Exc.2.10 (1.5-2.0cm) Aortic Valve AoV Peak Vkgkucod313.0cm/Leanne Peak GR.20mmHg Mitral Valve E/A ratio0.0 TDI E/Lateral E'0.0E/Medial E'0.0 Pulmonary Valve PV Peak Iyitsroj229.0cm/sPV Peak Grad.5mmHg Tricuspid Valve TR Peak [id number]/sRAP [id number] Peak Gr.35mmHg [id number] LEFT VENTRICLE The left ventricle is normal size. There is mild concentric left ventricular hypertrophy. The left ventricular function is normal. The left ventricular ejection fraction is within the normal range. There is normal LV segmental wall motion. No left ventricle thrombus noted on this study. RIGHT VENTRICLE The right ventricle is normal size. There is normal right ventricular wall thickness. The right ventricular systolic function is normal. ATRIA The left atrium is mildly dilated. The right atrium is mildly dilated. AORTIC VALVE The aortic valve is not well visualized. MITRAL VALVE The mitral valve is moderately thickened. Mitral regurgitation is mild. TRICUSPID VALVE There is mild tricuspid regurgitation. There is mild to moderate pulmonary hypertension. GREAT VESSELS The aortic root is normal in size. The IVC collapses <50% with inspiration. PERICARDIAL EFFUSION There is no pericardial effusion. <Conclusion> The left ventricle is normal size. There is mild concentric left ventricular hypertrophy. The left ventricular function is normal. The left ventricular ejection fraction is within the normal range. There is normal LV segmental wall motion. Mitral regurgitation is mild. There is mild tricuspid regurgitation. There is mild to moderate pulmonary hypertension.
[2017-03-28 22:46] LABS: HEMATOCRIT 38.4 % (42.0-52.0); MEAN CELL VOLUME 85.5 fL (80.0-105.0); MEAN CORPUSCULAR HEMOGLOBIN 28.3 pg (25.0-35.0); MEAN CORPUSCULAR HGB CONC 33.1 g/dl (31.0-37.0); MEAN PLATELET VOLUME 11.5 fl (7.0-11.0); RED CELL DISTRIBUTION WIDTH 14.8 % (11.5-14.5); WHITE BLOOD COUNT 18.7 10^3/ul (4.5-11.0)
[2017-03-28 22:54] LABS: MAGNESIUM 1.7 mg/dL (1.7-2.2); POTASSIUM 3.5 mmol/L (3.6-5.0)
[2017-03-29] MEDS: DOBUTamine 500mg/250ml D5W 500 MG/250 ML BAG IV PRN (00:28)
[2017-03-29] MEDS: Propofol 10 mg/ml 1,000 MG/100 ML VIAL IV PRN ×4 (00:39→09:53)
[2017-03-29] MEDS: Albuterol-Ipratrop 3 mg / 0.5 (3 ml) UD IH SCH ×4 (02:30→20:00)
[2017-03-29 05:56] LABS: ARTERIAL BLOOD GAS HCO3 29.2 mmol/L (21-28); ARTERIAL BLOOD GAS O2 CAPACITY 16.9 mL/dl (16-24); ARTERIAL BLOOD GAS O2 CONTENT 16.7 ML/dl (15-23); ARTERIAL BLOOD GAS PH 7.45 (7.35-7.45); ARTERIAL BLOOD HGB O2 SAT 96.6 % (95.0-98.0); CARBOXYHEMOGLOBIN 1.3 % (0.5-1.5); HHB 0.9 % (0-5); METHEMOGLOBIN 1.1 % (0.0-3.0)
[2017-03-29 07:28] LABS: MAGNESIUM 1.7 mg/dL (1.7-2.2); PHOSPHOROUS 3.1 mg/dL (2.5-4.5)
[2017-03-29] MEDS ORDERED: DOBUTamine 500mg/250ml D5W 500 MG/250 ML BAG IV PRN (07:55)
[2017-03-29] MEDS: Budesonide 0.5 mg/2 ml Inhal Susp UD IH SCH ×2 (07:56→20:00)
[2017-03-29] MEDS: Insulin Reg-MEDIUM-Coverage SC SCH ×3 (08:23→18:20)
[2017-03-29 08:25] LABS: ADD MANUAL DIFF? NO
[2017-03-29 08:37] LABS: BASO # 0.02 K/mm3 (0.0-2.0); BASO % 0.1 % (0.0-3.0); EOS # 0.2 (0.0-0.7); GRAN # 15.71 (1.4-6.5); GRAN % 86.1 % (50.0-68.0); LYMPH # 0.9 (1.2-3.4); LYMPH % 4.8 % (22.0-35.0); MEAN CORPUSCULAR HEMOGLOBIN 27.7 pg (25.0-35.0); MEAN CORPUSCULAR HGB CONC 32.2 g/dl (31.0-37.0); MEAN PLATELET VOLUME 11.9 fl (7.0-11.0); MONO # 1.5 (0.1-0.6); PLATELET COUNT 163 10^3/uL (120.0-450.0); RED CELL DISTRIBUTION WIDTH 15.2 % (11.5-14.5); WHITE BLOOD COUNT 18.3 10^3/ul (4.5-11.0)
[2017-03-29 08:47] LABS: BILIRUBIN,TOTAL 0.7 mg/dL (0.2-1.3); CALCIUM 8.4 mg/dL (8.4-10.5); POTASSIUM 4.1 mmol/L (3.6-5.0); TOTAL PROTEIN 5.9 g/dL (5.8-8.3)
[2017-03-29] MEDS: Meropenem 1g/NS 100mL IVPB 1 GM/100 ML PIGGYBACK IVPB SCH ×2 (09:48→21:57)
[2017-03-29] MEDS: Vancomycin 1gm in NS 250ml 1 GM/250 ML BAG IVPB SCH (09:49)
--- NOTE | 2017-03-29 09:55 | PN ---
DATE: 03/29/2017(635am--725am) PULMONARY NOTE SUBJECTIVE: The patient remains on the ventilator. He is sedated at the present time. PHYSICAL EXAMINATION: VITAL SIGNS: Temperature is 97.7. Pulse on the monitor is 104, respiratory rate 30/30, blood pressure 128/84. HEENT: Normocephalic, atraumatic. No JVD. CARDIOVASCULAR: Positive S1, S2. No S3. LUNGS: Decreased breath sounds at the bases. Less rhonchi. No wheezing. EXTREMITIES: Mild edema. No cyanosis, no clubbing. GASTROINTESTINAL: Abdomen is soft, nondistended. Bowel sounds are positive. SKIN: No acute rash. NEUROLOGIC: Limited at the present time. PERTINENT LABORATORY DATA: Chest x-ray was done this morning and reviewed. The chest x-ray is improved-- with decreased pulmonary infiltrates. Arterial blood gas was also done on assist control of 30, tidal volume 450, FiO2 of 40%, PEEP 10. Results are: pH 7.45, pCO2 of 42, pO2 of 132. IMPRESSION: 1. Ventricular fibrillation arrest, status post cardiopulmonary resuscitation. 2. Respiratory failure. 3. Coronary artery disease. 4. Chronic obstructive pulmonary disease. 5. Rule out aspiration pneumonia. 6. Encephalopathy. PLAN: The patient remains in the ICU. He remains on the ventilator. He is currently sedated and on a Diprivan drip. I did discuss the case with the night nurse at length. The night nurse does state that when the sedation is decreased, the patient does not have purposeful movements, nor does he respond to commands. He continues to have twitching/seizure activity. I did review the chest x-ray as above. The chest x-ray is improved with decreased pulmonary infiltrates. I have also reviewed the arterial blood gas. The arterial blood gas is also improved with a decrease in the alveolar arterial gradient. I would continue with the cardiology and neurologic evaluations. Inputs are noted. The patient remains critically ill with an overall very guarded status/ prognosis. I did discuss the case with the ICU nurse and medical records library professor this morning. I will also discuss the above with the entire ICU team in the next few moments. I will also discuss the above with Dr. Vargas later this morning. Sacha Hopkins MD cc: [id number] TT: 03/29/2017 09:55:34 Confirmation # [id number] Dictation # [id number] jn MARYLIN
[2017-03-29] MEDS: levETIRAcetam 1,000 MG in Sodium Chloride 0.9% 100 ML IV SCH ×2 (10:00→21:57)
--- NOTE | 2017-03-29 10:31 | PN ---
DATE: 03/29/2017 The patient is seen and examined at bedside. He is sedated with propofol. No clinical seizures. He appears to be comfortable. He is not responding to painful-type stimuli. He is on propofol 50 mcg per kilogram per minute. He is on dobutamine 5 mcg per kilogram per minute. He is on PRVC 450/30/10/40%. On that setting: PHYSICAL EXAMINATION: VITAL SIGNS: His oxygen saturation is 96%. His heart rate is 97. His blood pressure is 141/55. HEAD AND NECK: Atraumatic. LUNGS: Few crackles bibasilar. HEART: Irregular rate and rhythm. S1 and S2 distant. ABDOMEN: Soft, nontender, nondistended. MUSCULOSKELETAL: Trace bilateral pedal and ankle edema. NEUROLOGIC: The patient is sedated. SKIN: Moist. PSYCHIATRIC: The patient is sedated. LABORATORY DATA: WBC 18.7, hemoglobin 12.7, platelet count 150. Sodium 139, potassium 3.4, chloride 99, carbon dioxide 31, BUN 37, creatinine 1.9 from 1.8. Glucose 124. AST 80, ALT 46. MEDICATIONS: DuoNeb p.r.n., DuoNeb every 6 hours, budesonide, Decadron, dobutamine, heparin subQ, Keppra, Ativan p.r.n., meropenem, Protonix, propofol, vancomycin. Chest x-ray: Bilateral vascular congestion, however, appears to be a little bit better. ASSESSMENT AND PLAN: This is a 71-year-old gentleman who presented with ventricular fibrillation cardiac arrest. He underwent therapeutic hypothermia, and at present time, it is completed, and he has warmed up. He is, however, afebrile. The official report of echocardiogram is pending. However, bedside review suggests severe left ventricular systolic dysfunction. The patient is on dobutamine for inotropic support. His blood pressure stabilized after dobutamine was started. Neuro: The patient has an anoxic brain injury and had clinical and EEG confirmed seizures yesterday. The propofol drip increased to 50 mcg per kilogram per minute, and he was started on Keppra 1 gram IV q. 12. The patient has a mass in the left upper frontal lobe with substantial vasogenic edema. MRI is pending, and he is on Decadron. We will repeat the EEG today to ascertain resolution of seizures. If resolved, we will start tapering down anti -seizure medication. Pulmonary: The patient is on protective lung ventilation strategy. He has a cardiogenic pulmonary edema. We will continue with conservative fluid and oxygen management. We will start on Lasix for diuresis. His FiO2 requirement dropped down significantly from 100 to 40%. We will continue to taper PEEP down as well. We will continue with head of bed elevated more than 35 degrees. We will continue to optimize his cardiac regimen to maintain his respiratory status better as well. Once the patient went off benzodiazepines (once seizures resolve), we will proceed with daily weaning trial. Cardiovascular: The patient has severe left ventricular systolic dysfunction, and currently has dobutamine. He does have atrial fibrillation, which he had in the past. His heart rate, however, is relatively controlled. His blood pressure improved. We might proceed with Vasotec for afterload reduction as well. Once his renal function is somewhat improved, we might switch him from dobutamine to milrinone for additional afterlaod reduction. After- and preload reduction, he is provided with positive pressure ventilation. We will continue with conservative fluid management with diuresis. Gastrointestinal: We will start the patient on enteral nutrition. Gastrointestinal prophylaxis. Aspiration precaution. Endocrine: We will stop insulin drip, and we will continue with maintaining euglycemia and medium protocol sliding scale. Heme: No signs of bleeding. Infectious disease: The patient is on empiric antibiotics. Infectious disease service is following him. The patient is afebrile. CBC today is pending to ascertain no leukocytosis. We will continue with deep vein thrombosis prophylaxis as well. Addendum: discussed with Dr. Zeke Mills--he added Dilantin to keppra. Will repeat EEG. ccm time 40 min Rom Lao MD cc: [id number] TT: 03/29/2017 10:30:31 Confirmation # [id number] Dictation # [id number] jn MARYLIN
--- NOTE | 2017-03-29 10:51 | PN ---
DATE: 03/29/2017 REASON FOR CONSULTATION AND FOLLOWUP: Status post cardiac arrest, CPR, intubated, possible anoxic en cephalopathy, 3 cm mass in the brain. BRIEF CLINICAL HISTORY: This is a 71-year-old male with past medical history of COPD, on CPAP, histo ry of coronary artery disease, multiple stents, who was in the bathing tub and he collapsed, BLS was called. Later on, the patient was intubated, CPR done, VT, V-fib arrest, cardioverted and now patien t is in ICU intubated. Yesterday he had seizure activity significantly decreased. CT head clarisa ws a 3 cm mass with edema. PHYSICAL EXAMINATION: VITAL SIGNS: Temperature afebrile, heart rate 118, atrial fibrillation, chronic, blood pressure 144/ 88. HEENT: PERRLA. Extraocular muscles intact. NECK: Supple. No carotid bruits. No thyromegaly. CHEST: Clear to auscultation. HEART: S1, S2 regular. ABDOMEN: Soft. EXTREMITIES: Clubbing and cyanosis negative. Occasional twitching movements of the body noted. IMPRESSION: Cardiac arrest, CPR, ventricular fibrillation arrest, intubated, history of obstructive sleep apnea, history of multiple stents, possible coronary event, possible occlusion of the stent can not be ruled out, is status post CPR, ventricular fibrillation arrest, 3 cm mass in the brain with va sogenic edema, seizure activity, possible anoxic encephalopathy. RECOMMENDATION: Supportive care. The patient is currently on multiple drips including Dobutrex, ami odarone, propofol, insulin drip. Continue anti-seizure medication. We will put low-dose beta-blocke r as tolerated. Continue supportive care. Overall, patient's condition is critical. Usp progn osis guarded. Discussed with , discussed with manager of procurement taking care of the patient. We will f fay with you. Paulette Luu MD cc: [id number] TT: 03/29/2017 10:51:23 Confirmation # [id number] Dictation # [id number] misa
--- NOTE | 2017-03-29 11:04 | CP.PCM.PN ---
Subjective - Date & Time of Evaluation Date of Evaluation: 03/29/17 Time of Evaluation: 09:10 - Subjective Subjective: Still intubated and sedated, no fevers overnight, no diarrhea. Objective - Vital Signs/Intake and Output Vital Signs (last 24 hours): Temp Pulse Resp BP Pulse Ox 97.7 F 118 H 30 H 128/84 95 03/29/17 06:30 03/29/17 06:30 03/29/17 06:30 03/29/17 06:01 03/29/17 06:30 Intake and Output: 03/29/17 03/29/17 06:59 18:59 Intake Total 2033 Output Total 200 Balance 1833 - Medications Medications: Current Medications Albuterol/Ipratropium (Duoneb 3 Mg/0.5 Mg (3 Ml) Ud) 3 ml IH Q2H PRN PRN Reason: Shortness of Breath Albuterol/Ipratropium (Duoneb 3 Mg/0.5 Mg (3 Ml) Ud) 3 ml IH [id number] [facility] Last Admin: 03/29/17 02:30 Dose: 3 ml Budesonide (Pulmicort Respules) 0.5 mg IH [id number] [facility] Last Admin: 03/28/17 20:00 Dose: 0.5 mg Dexamethasone (Decadron Inj) 4 mg IVP Q6H [facility] Last Admin: 03/28/17 13:00 Dose: Not Given Heparin Sodium (Porcine) (Heparin) 5,000 units SC Q8 [facility] PRN Reason: Protocol Last Admin: 03/29/17 05:04 Dose: 5,000 units Vancomycin HCl (Vancomycin 1gm) 1 gm in 250 mls @ 167 mls/hr IVPB DAILY [facility] PRN Reason: Protocol Last Admin: 03/28/17 09:06 Dose: 167 mls/hr Sodium Bicarbonate 100 meq/ (Sodium Chloride) 1,100 mls @ 50 mls/hr IV .Q22H [facility] Last Admin: 03/28/17 15:45 Dose: 50 mls/hr Meropenem 1g/NS 100mL IVPB (Meropenem 1g/Ns 100ml Ivpb) 1 gm in 100 mls @ 100 mls/hr IVPB Q12 [facility] PRN Reason: Protocol Stop: 04/05/17 22:01 Last Admin: 03/28/17 21:17 Dose: 100 mls/hr Amiodarone HCl/Dextrose (Nexterone 360 Mg In D5w 200 Ml (Premix)) 360 mg in 200 mls @ 16.667 mls/hr IV .Q12H [facility]; 0.5 MG/MIN PRN Reason: Protocol Last Admin: 03/28/17 12:00 Dose: Not Given Levetiracetam 1,000 mg/ Sodium (Chloride) 110 mls @ 460 mls/hr IV Q12 [facility] Last Admin: 03/28/17 22:20 Dose: 460 mls/hr Insulin Human Regular 100 (units/ Sodium Chloride) 100 mls @ 0 mls/hr IV .Q0M PRN; Protocol; Per Protocol PRN Reason: TITRATE PER MD ORDER Last Titration: 03/29/17 06:00 Dose: 2 units/hr, 2 mls/hr Dobutamine HCl/Dextrose (Dobutamine/Dextrose 5% 500mg/250ml) 500 mg in 250 mls @ 19.391 mls/hr IV .[id number] PRN; Protocol; 5 MCG/KG/MIN PRN Reason: TITRATE PER PROTOCOL Last Admin: 03/29/17 00:28 Dose: 19.391 mls/hr Propofol (Diprivan) 1,000 mg in 100 mls @ 3.742 mls/hr IV .Q24H PRN; Protocol; 5 MCG/KG/MIN PRN Reason: TITRATE PER MD ORDER Last Admin: 03/29/17 06:39 Dose: 50 mcg/kg/min, 37.421 mls/hr Lorazepam (Ativan) 1 mg IVP Q6H PRN; Protocol PRN Reason: Seizure activity Last Admin: 03/28/17 08:00 Dose: 1 mg Pantoprazole Sodium (Protonix Inj) 40 mg IVP DAILY [facility] Last Admin: 03/28/17 09:04 Dose: 40 mg - Labs Labs: 03/28/17 22:40 03/28/17 22:40 PT 27.0 Seconds (9.9-11.8) H 03/28/17 18:18 INR 2.50 (0.93-1.08) H 03/28/17 18:18 APTT 39.1 Seconds (23.7-30.8) H 03/28/17 18:18 - Constitutional Appears: Other (Intubated and sedated) - Head Exam Head Exam: NORMAL INSPECTION - ENT Exam Additional comments: ET tube in place - Neck Exam Neck Exam: absent: Meningismus - Respiratory Exam Respiratory Exam: Decreased Breath Sounds - Cardiovascular Exam Cardiovascular Exam: +S1, +S2 - GI/Abdominal Exam GI & Abdominal Exam: Soft. absent: Tenderness Assessment and Plan - Assessment and Plan (Free Text) Plan: Assessment Systemic Inflammatory Response Syndrome (leukocytosis and hypothermia) probably due to cardiorespiratory arrest, etiology to be determined, R/O acute coronary syndrome; R/O sepsis but so far no source identified acute on chronic renal failure CAD S/P PCI chronic CHF DM HTN hyothyroidism history of right arm surgery Plan continue Merrem (day 2); blood, urine cx are negative - will d/c Vancomycin; CXR shows bilateral infiltrates which is more compatible with pulmonary edema; PCT is elevated because of the renal failure; reviewed Cardiology recommendations will continue to monitor clinically Patient continues to be in critical condition and prognosis is very guarded at best
--- NOTE | 2017-03-29 11:05 | RAD ---
HISTORY: f/u COMPARISON: 03/28/2017 FINDINGS: Endotracheal tube terminates 5.5 cm proximal to the braydon. LUNGS: There is mild pulmonary venous congestion. No lobar new PLEURA: No significant pleural effusion identified, no pneumothorax apparent. CARDIOVASCULAR: There is persistent moderate cardiomegaly OSSEOUS STRUCTURES: No significant abnormalities. VISUALIZED UPPER ABDOMEN: Normal. OTHER FINDINGS: None. IMPRESSION: Endotracheal tube terminates 5.5 cm proximal to the braydon. Moderate cardiomegaly and mild pulmonary venous congestion.
[2017-03-29 11:18] LABS: INR 2.44 (0.93-1.08); PARTIAL THROMBOPLASTIN TIME 37.9 Seconds (23.7-30.8)
--- NOTE | 2017-03-29 12:05 | EEG ---
DATE: 03/29/2017 CONDITION OF RECORDING: Asleep, comatose. DIAGNOSIS: Anoxic brain injury. MEDICATIONS: Reviewed via nurse's reconciliation sheet. INTERPRETATION: This is a 16-channel international recording. Background activity is composed of mo stly 4-5 cycles per second. There is minimal amount of beta activity of 16-20 cycles per second seen in this recording. There is increased amount of theta activity of 5-7 cycles per second seen in the tracing with some underlying delta slow waves. Drowsiness is characterized by mostly theta and very limited beta. Sleep was characterized by transient ____ waves, sleep spindles and bilateral slowing . Photic stimulation showed no change in the tracing. There were bursts of myoclonic activity noted throughout the EEG followed by a period of slowing. CONCLUSION: Abnormal EEG due to presence of bursts of myoclonic activity followed by periods of slow ing consistent with patient's underlying anoxic encephalopathy. Please clinically correlate. Giovanni Mills MD cc: [phone] TT: 03/29/2017 12:05:23 Confirmation # [id number] Dictation # [id number] tn
[2017-03-29] MEDS: Phenytoin 100 mg/2 ml Inj IVP SCH ×2 (13:47→18:17)
--- NOTE | 2017-03-29 13:55 | MRI ---
PROCEDURE: MRI BRAIN WITHOUT CONTRAST HISTORY: brain mass COMPARISON: Noncontrast head CT from 03/27/2017 TECHNIQUE: Multiplanar, multisequence MR images of the brain were obtained without intravenous contrast enhancement. FINDINGS: HEMORRHAGE: None DWI: No evidence of an acute or early subacute infarction. BRAIN PARENCHYMA: There is a 1.9 x 2.8 x 1.6 cm T1 isointense and T2/FLAIR hyperintense left parasagittal high parietal extra-axial mass with resultant mild mass effect and moderate vasogenic edema in the subjacent posterior frontal and parietal lobes. There is no evidence of midline shift or sub fall seen herniation. The midline sagittal structures are normal. There are mild chronic microangiopathic changes. There is no territorial infarction or extra-axial fluid collection. VENTRICLES: There is mild age-related global parenchymal volume loss and proportionate enlargement of the ventricles and cortical sulci. CRANIUM: There is normal bone marrow signal pattern. ORBITS: Grossly unremarkable. PARANASAL SINUSES/MASTOIDS: There is mild mucosal thickening in the paranasal sinuses. There is a moderate right and large left mastoid effusion. VASCULAR SYSTEM: There are normal signal voids in the larger intracranial arteries. OTHER FINDINGS: None. IMPRESSION: 1.9 x 2.8 x 1.6 cm left parasagittal high parietal extra-axial mass with mild mass with mild mass effect on the subjacent posterior frontal and anterior parietal lobes and moderate vasogenic edema without midline shift or herniation. Evaluation is limited in the absence of intravenous contrast although statistically this mass is most compatible with a meningioma. MRI of the brain with intravenous contrast would be helpful in definitive evaluation.
[2017-03-29] MEDS ORDERED: Lidocaine 2% Inj (20ml) ONE (15:18)
--- NOTE | 2017-03-29 15:19 | CP.PCM.PN ---
Subjective - Date & Time of Evaluation Date of Evaluation: 03/29/17 Time of Evaluation: 15:12 - Subjective Subjective: Medicine progress note for Dr. Vargas/Dr. Escalante service - Krishna Kauffman PGY1 Patient seen and examined in the ICU, bed 129-03. Patient is intubated and sedated on propofol drip. No acute overnight events reported by nursing. 12 point ROS limited due to patient status. Objective - Vital Signs/Intake and Output Vital Signs (last 24 hours): Temp Pulse Resp BP Pulse Ox 98.6 F 92 H 30 H 114/52 L 98 03/29/17 11:15 03/29/17 11:15 03/29/17 11:15 03/29/17 11:01 03/29/17 11:15 Intake and Output: 03/29/17 03/29/17 06:59 18:59 Intake Total 2033 100 Output Total 200 Balance 1833 100 - Medications Medications: Current Medications Albuterol/Ipratropium (Duoneb 3 Mg/0.5 Mg (3 Ml) Ud) 3 ml IH Q2H PRN PRN Reason: Shortness of Breath Albuterol/Ipratropium (Duoneb 3 Mg/0.5 Mg (3 Ml) Ud) 3 ml IH [id number] [facility] Last Admin: 03/29/17 13:42 Dose: 3 ml Budesonide (Pulmicort Respules) 0.5 mg IH [id number] [facility] Last Admin: 03/29/17 07:56 Dose: 0.5 mg Dexamethasone (Decadron Inj) 4 mg IVP Q6H [facility] Last Admin: 03/28/17 13:00 Dose: Not Given Heparin Sodium (Porcine) (Heparin) 5,000 units SC Q8 [facility] PRN Reason: Protocol Last Admin: 03/29/17 05:04 Dose: 5,000 units Meropenem 1g/NS 100mL IVPB (Meropenem 1g/Ns 100ml Ivpb) 1 gm in 100 mls @ 100 mls/hr IVPB Q12 [facility] PRN Reason: Protocol Stop: 04/05/17 22:01 Last Admin: 03/29/17 09:48 Dose: 100 mls/hr Levetiracetam 1,000 mg/ Sodium (Chloride) 110 mls @ 460 mls/hr IV Q12 [facility] Last Admin: 03/29/17 10:00 Dose: 460 mls/hr Propofol (Diprivan) 1,000 mg in 100 mls @ 3.742 mls/hr IV .Q24H PRN; Protocol; 5 MCG/KG/MIN PRN Reason: TITRATE PER MD ORDER Last Titration: 03/29/17 13:00 Dose: 30 mcg/kg/min, 22.453 mls/hr Dobutamine HCl/Dextrose (Dobutamine/Dextrose 5% 500mg/250ml) 500 mg in 250 mls @ 9.696 mls/hr IV .Q24H PRN; Protocol; 2.5 MCG/KG/MIN PRN Reason: TITRATE PER PROTOCOL Insulin Human Regular (Humulin R Med) 0 units SC Q6 [facility] PRN Reason: Protocol Last Admin: 03/29/17 12:00 Dose: Not Given Lorazepam (Ativan) 1 mg IVP Q6H PRN; Protocol PRN Reason: Seizure activity Last Admin: 03/28/17 08:00 Dose: 1 mg Metoprolol Tartrate (Lopressor) 25 mg PO BRKDIN [facility] Last Admin: 03/29/17 09:56 Dose: 25 mg Pantoprazole Sodium (Protonix Inj) 40 mg IVP DAILY [facility] Last Admin: 03/29/17 09:55 Dose: 40 mg Phenytoin (Dilantin) 100 mg IVP Q6H [facility] Last Admin: 03/29/17 13:47 Dose: Not Given - Labs Labs: 03/29/17 06:00 03/29/17 06:00 PT 26.3 Seconds (9.9-11.8) H 03/29/17 10:00 INR 2.44 (0.93-1.08) H 03/29/17 10:00 APTT 37.9 Seconds (23.7-30.8) H 03/29/17 10:00 - Head Exam Head Exam: ATRAUMATIC - Respiratory Exam Respiratory Exam: absent: Clear to Ausculation Bilateral, Rales, Wheezes Additional comments: scattered crackles bilaterally - Cardiovascular Exam Cardiovascular Exam: Irregular Rhythm, +S1, +S2. absent: Clicks, Gallop, Rubs - GI/Abdominal Exam GI & Abdominal Exam: Soft. absent: Distended, Firm, Rigid, Tenderness - Extremities Exam Extremities Exam: Pedal Edema (trace) - Neurological Exam Neurological Exam: absent: Alert, Oriented x3 - Skin Skin Exam: Dry, Intact, Normal Color, Warm Assessment and Plan - Assessment and Plan (Free Text) Plan: 71yo male with history of ARIELLE, HTN, DMT2, HLD, CAD s/p 3 stents, COPD presents via EMS s/p cardiac arrest with ROSC 1. Cardiac arrest 2. Anoxic encephalopathy 3. Cardiogenic edema 5. CAD 6. DM type 2 7. ARIELLE 8. HLD 9. COPD -Patient is currently intubated and sedated on propofol drip -EEG results revealed presence of bursts of myoclonic activity followed by periods of slowing consistent with underlying anoxic encephalopathy -Continue with neurochecks -CXR reviewed and revealed pulmonary edema with right greater than left -MRI Brain reviewed; Brain flow scan reviewed; -Echocardiogram revealed LVEF 74%, mild tricuspid and mitral regurgitation, mild to moderate pulmonary HTN; see full report -CT head reviewed and revealed 3cm mass in the left frontal lobe with vasogenic edema -Hypothermia protocol initiated per ICU and cardiology recommendations -Continue with keppra and ativan PRN -Continue with meropenem and vancomycin per ID recommendations -Continue with insulin drip, fingerstick q1h, NPO -Protonix/Heparin for GI/DVT prophylaxis -Neurology following - Dr. Mills -Cardiology following - Dr. Luu -Pulmonology following - Dr. Hopkins -ID following - Dr. Watson -IR consulted and PICC line placed - Dr. Muñoz Patient seen and case discussed with attending, Dr. Vargas
--- NOTE | 2017-03-29 17:52 | VASCULAR ---
PROCEDURE: Ultrasound and fluoroscopically placed left upper extremity PICC line. HISTORY: Cardiac arrest. Multi organ failure. Needs PICC line. PHYSICIAN(S): Je Muñoz MD. TECHNIQUE: The relative risks and indications of the procedure were explained to the patient's family and consent obtained. The patient was placed supine on the arteriogram table and the left arm prepped and draped in the usual sterile fashion. A tourniquet was applied to the left axilla. 1% Xylocaine was used to anesthetize the skin and soft tissues at the puncture site above the elbow. The left basilic vein was punctured under direct ultrasound guidance with a micropuncture set. A 0.018 guidewire was advanced centrally and used to measure the length to the SVC/RA junction. A 5 Niuean dual lumen PICC line 50 cm long was advanced to the SVC/RA junction. The catheter was flushed and secured. The patient tolerated the procedure well. IMPRESSION: 1. Ultrasound and fluoroscopically placed left upper extremity PICC line. A 5 Niuean dual lumen PICC line 50 cm long was advanced to the SVC/RA junction.
--- NOTE | 2017-03-29 18:16 | NM ---
PROCEDURE: Cerebral blood flow study HISTORY: mass, anoxic brain injury COMPARISON: 03/27/2017 CT brain. March 29, 2017. MRI brain. TECHNIQUE: 25 mCi technetium 99 M pertechnetate administered intravenously. FINDINGS: Less than optimal bolus of pertechnetate limits the value of the current study. The study is indeterminate based on this technical limitation. Radionuclide is not identified above the tentorium. However, this may be technical. IMPRESSION: Nondiagnostic study based on technique. Inconclusive examination in the assessment of cerebral blood flow. Repeat study may be beneficial if clinically indicated.
[2017-03-30] MEDS: Insulin Reg-MEDIUM-Coverage SC SCH ×4 (00:26→19:06)
[2017-03-30] MEDS: Phenytoin 100 mg/2 ml Inj IVP SCH ×4 (00:38→18:00)
[2017-03-30] MEDS: Albuterol-Ipratrop 3 mg / 0.5 (3 ml) UD IH SCH ×4 (02:31→19:54)
[2017-03-30] MEDS: Propofol 10 mg/ml 1,000 MG/100 ML VIAL IV PRN (04:59)
[2017-03-30 05:27] LABS: ARTERIAL BLOOD GAS HCO3 30.4 mmol/L (21-28); ARTERIAL BLOOD GAS O2 CAPACITY 15.3 mL/dl (16-24); ARTERIAL BLOOD GAS O2 CONTENT 14.7 ML/dl (15-23); ARTERIAL BLOOD HGB O2 SAT 93.7 % (95.0-98.0); HHB 3.6 % (0-5); METHEMOGLOBIN 0.8 % (0.0-3.0)
[2017-03-30 06:22] LABS: ADD MANUAL DIFF? NO
[2017-03-30 06:35] LABS: INR 1.67 (0.93-1.08)
[2017-03-30 06:53] LABS: ALB/GLOB RATIO 1.1 (1.1-1.8); BILIRUBIN,TOTAL 0.9 mg/dL (0.2-1.3); CALCIUM 8.1 mg/dL (8.4-10.5); MAGNESIUM 2.1 mg/dL (1.7-2.2); PHOSPHOROUS 3.3 mg/dL (2.5-4.5); POTASSIUM 3.9 mmol/L (3.6-5.0); TOTAL PROTEIN 5.8 g/dL (5.8-8.3)
[2017-03-30 07:03] LABS: BASO # 0.01 K/mm3 (0.0-2.0); BASO % 0.1 % (0.0-3.0); EOS # 0.4 (0.0-0.7); EOS % 3.5 % (1.5-5.0); GRAN # 9.25 (1.4-6.5); HEMATOCRIT 34.7 % (42.0-52.0); LYMPH # 1.5 (1.2-3.4); LYMPH % 12.4 % (22.0-35.0); MEAN CORPUSCULAR HEMOGLOBIN 27.2 pg (25.0-35.0); MEAN PLATELET VOLUME 11.7 fl (7.0-11.0); PLATELET COUNT 146 10^3/uL (120.0-450.0); RED CELL DISTRIBUTION WIDTH 15.3 % (11.5-14.5); WHITE BLOOD COUNT 12.2 10^3/ul (4.5-11.0)
[2017-03-30] MEDS: Budesonide 0.5 mg/2 ml Inhal Susp UD IH SCH ×2 (07:41→19:54)
--- NOTE | 2017-03-30 07:49 | PN ---
DATE: 03/30/2017(630AM--720AM) SUBJECTIVE: The patient remains in the ICU and on the ventilator. He is currently sedated. PHYSICAL EXAMINATION: VITAL SIGNS: Temperature is 100.2, pulse 86, respirations 30/30, blood pressure 149/65. HEENT: Normocephalic, atraumatic. No JVD. CARDIOVASCULAR: Positive S1, S2. No S3. LUNGS: Decreased breath sounds at the bases. Less rhonchi. No wheezing. EXTREMITIES: Mild edema. No cyanosis, no clubbing. GASTROINTESTINAL: Abdomen is soft, nondistended. Bowel sounds are positive. SKIN: No acute rash. NEUROLOGIC: Limited at the present time. PERTINENT LABORATORY DATA: Chest x-ray was done early this morning and reviewed. There are no official results on the chart. Today's film is significantly rotated. There are minimal infiltrates remaining -- significantly decreased from the original film. Arterial blood gas was done on assist control of 30, tidal volume 450, FiO2 40%, PEEP of 10. Results are: pH 7.50, pCO2 of 39, pO2 of 69. IMPRESSION: 1. Ventricular fibrillation arrest, status post cardiopulmonary resuscitation. 2. Respiratory failure. 3. Coronary artery disease. 4. Chronic obstructive pulmonary disease. 5. Probable aspiration pneumonia. 6. Encephalopathy. PLAN: The patient remains in the ICU. He is currently sedated and on the ventilator. I did discuss the case with the night nurse at length. The night nurse states that the patient does open his eyes and moves his extremities a little more -- when the sedation is decreased. Neurologic workup is in progress. I did discuss the case with Dr. Mills at length yesterday. I have also reviewed the chest x-ray as above. The x-ray is significantly improved -- from the original films -- with decreased pulmonary infiltrates. I have also reviewed the arterial blood gas. A mixed disorder is present, along with a moderate increase in the alveolar arterial gradient. I would continue with the current ventilator settings for now. The patient remains on antibiotic therapy -- as per infectious disease. Input by Dr. Simmons is noted. Currently, the patient is on meropenem only. I will discuss the case with infectious disease this morning - with the thought of possibly broadening the antibiotic coverage. Input by cardiology is also noted. The patient remains critically ill, with overall very guarded prognosis. I will discuss the above with the entire ICU team in the next few moments. I will also discuss the above with Dr. Vargas later this morning. Sacha Hopkins MD cc: [id number] TT: 03/30/2017 07:48:38 Confirmation # [id number] Dictation # [id number] tn [email or web address]
--- NOTE | 2017-03-30 08:11 | CP.PCM.PN ---
<Naty Vallejo - Last Filed: 03/30/17 13:12> Subjective - Date & Time of Evaluation Date of Evaluation: 03/30/17 Time of Evaluation: 08:08 - Subjective Subjective: ICU Progress Note This is a 71Y M with PMH HTN, DM, HLD, CAD s/p 3 stents, COPD, ARIELLE s/p cardiac arrest with ROSC with anoxic encephalopathy. Patient seen and examined at bedside. PICC line placed yesterday. Pt had mild fever overnight with Tmax of 100.6. Patient is intubated and sedated. ROS could not be obtained. Objective - Vital Signs/Intake and Output Vital Signs (last 24 hours): Temp Pulse Resp BP Pulse Ox 100.2 F H 86 30 H 149/65 93 L 03/30/17 05:45 03/30/17 05:45 03/29/17 16:45 03/30/17 05:22 03/30/17 05:45 Intake and Output: 03/30/17 03/30/17 06:59 18:59 Intake Total 2439 Output Total 950 Balance 1489 - Medications Medications: Current Medications Albuterol/Ipratropium (Duoneb 3 Mg/0.5 Mg (3 Ml) Ud) 3 ml IH Q2H PRN PRN Reason: Shortness of Breath Albuterol/Ipratropium (Duoneb 3 Mg/0.5 Mg (3 Ml) Ud) 3 ml IH [id number] [facility] Last Admin: 03/30/17 07:41 Dose: 3 ml Budesonide (Pulmicort Respules) 0.5 mg IH [id number] [facility] Last Admin: 03/30/17 07:41 Dose: 0.5 mg Dexamethasone (Decadron Inj) 4 mg IVP Q6H [facility] Last Admin: 03/28/17 13:00 Dose: Not Given Heparin Sodium (Porcine) (Heparin) 5,000 units SC Q8 [facility] PRN Reason: Protocol Last Admin: 03/30/17 05:00 Dose: 5,000 units Meropenem 1g/NS 100mL IVPB (Meropenem 1g/Ns 100ml Ivpb) 1 gm in 100 mls @ 100 mls/hr IVPB Q12 [facility] PRN Reason: Protocol Stop: 04/05/17 22:01 Last Admin: 03/29/17 21:57 Dose: 100 mls/hr Levetiracetam 1,000 mg/ Sodium (Chloride) 110 mls @ 460 mls/hr IV Q12 [facility] Last Admin: 03/29/17 21:57 Dose: 460 mls/hr Propofol (Diprivan) 1,000 mg in 100 mls @ 3.742 mls/hr IV .Q24H PRN; Protocol; 5 MCG/KG/MIN PRN Reason: TITRATE PER MD ORDER Last Admin: 03/30/17 04:59 Dose: 10 mcg/kg/min, 7.484 mls/hr Dobutamine HCl/Dextrose (Dobutamine/Dextrose 5% 500mg/250ml) 500 mg in 250 mls @ 9.696 mls/hr IV .Q24H PRN; Protocol; 2.5 MCG/KG/MIN PRN Reason: TITRATE PER PROTOCOL Last Admin: 03/29/17 19:00 Dose: 2.5 mcg/kg/min, 9.696 mls/hr Acetaminophen (Ofirmev) 1,000 mg in 100 mls @ 400 mls/hr IVPB Q6H PRN PRN Reason: Temperature Stop: 03/31/17 23:45 Last Admin: 03/30/17 00:38 Dose: 400 mls/hr Insulin Human Regular (Humulin R Med) 0 units SC Q6 [facility] PRN Reason: Protocol Last Admin: 03/30/17 05:53 Dose: Not Given Lorazepam (Ativan) 1 mg IVP Q6H PRN; Protocol PRN Reason: Seizure activity Last Admin: 03/28/17 08:00 Dose: 1 mg Metoprolol Tartrate (Lopressor) 25 mg PO BRKDIN [facility] Last Admin: 03/29/17 18:21 Dose: 25 mg Pantoprazole Sodium (Protonix Inj) 40 mg IVP DAILY [facility] Last Admin: 03/29/17 09:55 Dose: 40 mg Phenytoin (Dilantin) 100 mg IVP Q6H [facility] Last Admin: 03/30/17 05:53 Dose: 100 mg - Labs Labs: 03/30/17 06:15 03/30/17 06:15 PT 18.0 Seconds (9.9-11.8) H 03/30/17 06:15 INR 1.67 (0.93-1.08) H 03/30/17 06:15 APTT 35.0 Seconds (23.7-30.8) H 03/30/17 06:15 - Constitutional Appears: No Acute Distress - Head Exam Head Exam: ATRAUMATIC, NORMAL INSPECTION, NORMOCEPHALIC - Eye Exam Eye Exam: Normal appearance, PERRL Pupil Exam: PERRL - ENT Exam ENT Exam: Mucous Membranes Moist - Neck Exam Neck Exam: Full ROM - Respiratory Exam Respiratory Exam: Rales, NORMAL BREATHING PATTERN. absent: Clear to Ausculation Bilateral, Wheezes, Respiratory Distress - Cardiovascular Exam Cardiovascular Exam: REGULAR RHYTHM, +S1, +S2. absent: Gallop, Rubs, Murmur - GI/Abdominal Exam GI & Abdominal Exam: Soft, Normal Bowel Sounds. absent: Rigid, Tenderness, Mass , Rebound - Extremities Exam Extremities Exam: Pedal Edema - Neurological Exam Neurological Exam: absent: Alert, Awake, Oriented x3 Additional comments: Pt is sedated - Skin Skin Exam: Dry, Normal Color, Warm Assessment and Plan - Assessment and Plan (Free Text) Assessment: This is a 71Y M with PMH HTN, DM, HLD, CAD s/p 3 stents, COPD, ARIELLE s/p cardiac arrest with ROSC and anoxic encephalopathy. He underwent hypothermia protocol and is now warmed up. Plan: Neuro: Intubated and off sedation GCS of 8 Neurocheck q1h Repeat EEG showed wave bursts of myoclonic activity which correlates with poor prognosis Will repeat EEG today now that he is off sedation Keppra and Phenytoin Ativan prn Neuro consulted- recs appreciated Brain flow scan was poor study, MRI of brain showed a mass about 2cm in L parietal region -please see full report for more detail Pt on Decadron Pt febrile overnight, Tylenol IV prn Maintain normothermia CV: Pt now off of Dobutamine Ramipril and Hydralazine for afterload reduction Imdur added for preload reduction Echo showed EF of 74%, but pt on Dobutamine at the time Cardio consulted- recs appreciated Lopressor added as per cardio Resp: Maintain spO2>90% Aspiration precaution HOB elevated on PRVC Rate: 30, TV: 450, Fio2: 40 and PEEP of 10. Continue protective lung ventilation strategy GI: Enteral nutrition started as per network strategist- Jevity with goal of 60ml/hr /Neprho: AYE-Cr now 2.1 Urine output now 35ml/hr (goal is about 65ml/hr) Continue to monitor I&O maintain euvolemia Will continue to monitor electrolytes and replace as needed Heme: Hgb stable Coags trending down No signs of bleeding at this time Continue to monitor CBC ID: Leukocytosis improved, mildly febrile Lactate elevated, but trending down PCT elevated Blood and urine culture negative at this time ID consulted-recs appreciated On Merrem and Linezolid Endo: On ISS BGM ACHS Maintain euglycemia- between 140-180 GI ppx: Pepcid IVP DVT ppx: Heparin SC q8h case seen, discussed and reviewed with attending. Alton Vallejo PGY1 <Rom Lao B - Last Filed: 03/30/17 16:50> Objective - Vital Signs/Intake and Output Vital Signs (last 24 hours): Temp Pulse Resp BP Pulse Ox 98.2 F 80 18 168/76 H 95 03/30/17 16:15 03/30/17 16:15 03/30/17 16:15 03/30/17 16:15 03/30/17 16:15 Intake and Output: 03/30/17 03/30/17 06:59 18:59 Intake Total 2439 35 Output Total 950 Balance 1489 35 - Medications Medications: Current Medications Albuterol/Ipratropium (Duoneb 3 Mg/0.5 Mg (3 Ml) Ud) 3 ml IH Q2H PRN PRN Reason: Shortness of Breath Albuterol/Ipratropium (Duoneb 3 Mg/0.5 Mg (3 Ml) Ud) 3 ml IH [id number] [facility] Last Admin: 03/30/17 13:10 Dose: 3 ml Budesonide (Pulmicort Respules) 0.5 mg IH [id number] [facility] Last Admin: 03/30/17 07:41 Dose: 0.5 mg Dexamethasone (Decadron Inj) 4 mg IVP Q6H [facility] Last Admin: 03/28/17 13:00 Dose: Not Given Heparin Sodium (Porcine) (Heparin) 5,000 units SC Q8 [facility] PRN Reason: Protocol Last Admin: 03/30/17 13:10 Dose: 5,000 units Hydralazine HCl (Apresoline) 25 mg PO QID [facility] Meropenem 1g/NS 100mL IVPB (Meropenem 1g/Ns 100ml Ivpb) 1 gm in 100 mls @ 100 mls/hr IVPB Q12 [facility] PRN Reason: Protocol Stop: 04/05/17 22:01 Last Admin: 03/30/17 10:13 Dose: 100 mls/hr Levetiracetam 1,000 mg/ Sodium (Chloride) 110 mls @ 460 mls/hr IV Q12 [facility] Last Admin: 03/30/17 09:45 Dose: 460 mls/hr Propofol (Diprivan) 1,000 mg in 100 mls @ 3.742 mls/hr IV .Q24H PRN; Protocol; 5 MCG/KG/MIN PRN Reason: TITRATE PER MD ORDER Last Titration: 03/30/17 10:49 Dose: 0 mcg/kg/min, 0 mls/hr Dobutamine HCl/Dextrose (Dobutamine/Dextrose 5% 500mg/250ml) 500 mg in 250 mls @ 9.696 mls/hr IV .Q24H PRN; Protocol; 2.5 MCG/KG/MIN PRN Reason: TITRATE PER PROTOCOL Last Admin: 03/29/17 19:00 Dose: 2.5 mcg/kg/min, 9.696 mls/hr Acetaminophen (Ofirmev) 1,000 mg in 100 mls @ 400 mls/hr IVPB Q6H PRN PRN Reason: Temperature Stop: 03/31/17 23:45 Last Admin: 03/30/17 00:38 Dose: 400 mls/hr Linezolid (Zyvox 600mg/300ml D5w) 600 mg in 300 mls @ 200 mls/hr IVPB Q12 [facility] PRN Reason: Protocol Stop: 04/06/17 10:01 Last Admin: 03/30/17 10:14 Dose: 200 mls/hr Insulin Human Regular (Humulin R Med) 0 units SC Q6 [facility] PRN Reason: Protocol Last Admin: 03/30/17 12:52 Dose: Not Given Isosorbide Mononitrate (Ismo) 10 mg PO 0800,1500 [facility] Lorazepam (Ativan) 1 mg IVP Q6H PRN; Protocol PRN Reason: Seizure activity Last Admin: 03/28/17 08:00 Dose: 1 mg Metoprolol Tartrate (Lopressor) 25 mg PO BRKDIN [facility] Last Admin: 03/30/17 10:00 Dose: 25 mg Pantoprazole Sodium (Protonix Inj) 40 mg IVP DAILY [facility] Last Admin: 03/30/17 10:00 Dose: 40 mg Phenytoin (Dilantin) 100 mg IVP Q6H [facility] Last Admin: 03/30/17 13:09 Dose: 100 mg Ramipril (Altace) 2.5 mg PO DAILY [facility] Last Admin: 03/30/17 13:09 Dose: 2.5 mg - Labs Labs: 03/30/17 06:15 03/30/17 06:15 PT 18.0 Seconds (9.9-11.8) H 03/30/17 06:15 INR 1.67 (0.93-1.08) H 03/30/17 06:15 APTT 35.0 Seconds (23.7-30.8) H 03/30/17 06:15 Addendum Addendum: 03/30/17 16:45 patient was seen, examined and discussed at bedside with Dr. Vallejo. Her note reflects my exam, assessment and plan, except as below. meds/Labs/ONE reviewed. 71 yo male with anoxic brain injury after cardiac arrest, now vent dependent. seizures resolved as per neurology service, cont Keppra and Dilantimn. Propofol is off. Waiting to see if "woke up". BRAIN MRI-mass with vasopgenic edema--on decadrone. hemodynamically stable, dobutamine is off. eco was done on dobutamine thus EF may be falsely elevated. BP somewhat increased--will proceed with hydralazine which will also help with afterload reduction. Would repeat Echo if cardiology service is Ok with this as patient is off of dobutmaine. Prognostication will be deffered to neurology service as patient is 72 hrs post hypothermia protocol ccm time 40 min
[2017-03-30] MEDS: levETIRAcetam 1,000 MG in Sodium Chloride 0.9% 100 ML IV SCH ×2 (09:45→22:21)
[2017-03-30] MEDS: Meropenem 1g/NS 100mL IVPB 1 GM/100 ML PIGGYBACK IVPB SCH ×2 (10:13→22:20)
[2017-03-30] MEDS: Linezolid 600 mg in D5W 300 ml 600 MG/300 ML BAG IVPB SCH ×2 (10:14→22:14)
--- NOTE | 2017-03-30 11:27 | CP.PCM.PN ---
Subjective - Date & Time of Evaluation Date of Evaluation: 03/30/17 Time of Evaluation: 09:50 - Subjective Subjective: Patient continues to be on the ventilator, sedated. Objective - Vital Signs/Intake and Output Vital Signs (last 24 hours): Temp Pulse Resp BP Pulse Ox 99.7 F H 90 30 H 153/67 H 96 03/30/17 08:45 03/30/17 08:45 03/29/17 16:45 03/30/17 08:00 03/30/17 08:45 Intake and Output: 03/30/17 03/30/17 06:59 18:59 Intake Total 2439 Output Total 950 Balance 1489 - Medications Medications: Current Medications Albuterol/Ipratropium (Duoneb 3 Mg/0.5 Mg (3 Ml) Ud) 3 ml IH Q2H PRN PRN Reason: Shortness of Breath Albuterol/Ipratropium (Duoneb 3 Mg/0.5 Mg (3 Ml) Ud) 3 ml IH [id number] [facility] Last Admin: 03/30/17 07:41 Dose: 3 ml Budesonide (Pulmicort Respules) 0.5 mg IH [id number] [facility] Last Admin: 03/30/17 07:41 Dose: 0.5 mg Dexamethasone (Decadron Inj) 4 mg IVP Q6H [facility] Last Admin: 03/28/17 13:00 Dose: Not Given Heparin Sodium (Porcine) (Heparin) 5,000 units SC Q8 [facility] PRN Reason: Protocol Last Admin: 03/30/17 05:00 Dose: 5,000 units Meropenem 1g/NS 100mL IVPB (Meropenem 1g/Ns 100ml Ivpb) 1 gm in 100 mls @ 100 mls/hr IVPB Q12 [facility] PRN Reason: Protocol Stop: 04/05/17 22:01 Last Admin: 03/29/17 21:57 Dose: 100 mls/hr Levetiracetam 1,000 mg/ Sodium (Chloride) 110 mls @ 460 mls/hr IV Q12 [facility] Last Admin: 03/29/17 21:57 Dose: 460 mls/hr Propofol (Diprivan) 1,000 mg in 100 mls @ 3.742 mls/hr IV .Q24H PRN; Protocol; 5 MCG/KG/MIN PRN Reason: TITRATE PER MD ORDER Last Admin: 03/30/17 04:59 Dose: 10 mcg/kg/min, 7.484 mls/hr Dobutamine HCl/Dextrose (Dobutamine/Dextrose 5% 500mg/250ml) 500 mg in 250 mls @ 9.696 mls/hr IV .Q24H PRN; Protocol; 2.5 MCG/KG/MIN PRN Reason: TITRATE PER PROTOCOL Last Admin: 03/29/17 19:00 Dose: 2.5 mcg/kg/min, 9.696 mls/hr Acetaminophen (Ofirmev) 1,000 mg in 100 mls @ 400 mls/hr IVPB Q6H PRN PRN Reason: Temperature Stop: 03/31/17 23:45 Last Admin: 03/30/17 00:38 Dose: 400 mls/hr Linezolid (Zyvox 600mg/300ml D5w) 600 mg in 300 mls @ 200 mls/hr IVPB Q12 [facility] PRN Reason: Protocol Stop: 04/06/17 10:01 Insulin Human Regular (Humulin R Med) 0 units SC Q6 [facility] PRN Reason: Protocol Last Admin: 03/30/17 05:53 Dose: Not Given Lorazepam (Ativan) 1 mg IVP Q6H PRN; Protocol PRN Reason: Seizure activity Last Admin: 03/28/17 08:00 Dose: 1 mg Metoprolol Tartrate (Lopressor) 25 mg PO BRKDIN [facility] Last Admin: 03/29/17 18:21 Dose: 25 mg Pantoprazole Sodium (Protonix Inj) 40 mg IVP DAILY [facility] Last Admin: 03/29/17 09:55 Dose: 40 mg Phenytoin (Dilantin) 100 mg IVP Q6H [facility] Last Admin: 03/30/17 05:53 Dose: 100 mg - Labs Labs: 03/30/17 06:15 03/30/17 06:15 PT 18.0 Seconds (9.9-11.8) H 03/30/17 06:15 INR 1.67 (0.93-1.08) H 03/30/17 06:15 APTT 35.0 Seconds (23.7-30.8) H 03/30/17 06:15 - Constitutional Appears: Other (Intubated and sedated) - Head Exam Head Exam: NORMAL INSPECTION - ENT Exam Additional comments: ET tube in place - Neck Exam Neck Exam: absent: Meningismus - Respiratory Exam Respiratory Exam: Decreased Breath Sounds - Cardiovascular Exam Cardiovascular Exam: +S1, +S2 - GI/Abdominal Exam GI & Abdominal Exam: Soft. absent: Tenderness - Extremities Exam Additional comments: left arm PICC line site clean and non-tender Assessment and Plan - Assessment and Plan (Free Text) Plan: Assessment Systemic Inflammatory Response Syndrome (leukocytosis and hypothermia) probably due to cardiorespiratory arrest, R/O acute coronary syndrome; R/O sepsis due to possible aspiration pneumonia acute on chronic renal failure CAD S/P PCI chronic CHF DM HTN hyothyroidism history of right arm surgery Plan continue Merrem (day 3) and add Zyvox since the patient developed fever overnight - will repeat blood cx, sputum cx; initial blood, urine cx on admission are negative - CXR shows bilateral infiltrates which is pulmonary edema but cannot rule out pneumonia; PCT is elevated because of the renal failure; reviewed Cardiology and Pulmonary recommendations will continue to monitor clinically Patient continues to be in critical condition and prognosis is very guarded at best discussed EEG findings with Neurology and it is compatible with anoxic brain injury; meningioma on MRI is an incidental finding
--- NOTE | 2017-03-30 11:38 | PN ---
DATE: 03/30/[address] Luu. The patient is still unresponsive on the ventilator. He is on Dobutrex infusion and in atrial fibril lation on the monitor. No reported ventricular tachycardia. PHYSICAL EXAMINATION: VITAL SIGNS: Blood pressure 153/67, heart rate 90, temperature 99.7. HEENT: Normocephalic. CHEST: Diminished breath sounds over the bases. HEART: S1, S2 irregular. ABDOMEN: Soft. EXTREMITIES: No edema. LABORATORY DATA: Today's CBC: WBC 12.2, hemoglobin 11.1, hematocrit 34.7, platelet count 146,000. SMA-7: Sodium 136, potassium 3.9, chloride 99, CO2 of 29, glucose 216, BUN 47, creatinine 2.1. Toda y's INR is 1.67. PTT 35. Brain MRI report was consistent with 1.9 x 2.8 x 1.6 cm left parasagittal/high parietal extraaxial ma ss with mild mass effect on the subjacent posterior frontal and anterior parietal lobes, and moderate vasogenic edema without midline shift or herniation. Chest x-ray revealed cardiomegaly with CHF; le ft pleural effusion cannot be ruled out. Echocardiographic study revealed mild concentric LVH with n ormal LV segmental wall motion and ejection fraction, [id number] pulmonary hypertension. ASSESSMENT: 1. Status post cardiac arrest, primary ventricular fibrillation as etiology. 2. Anoxic encephalopathy. 3. Coronary artery disease with history of multiple coronary stents in the past. 4. Left parietal lobe brain mass with vasogenic edema. 5. Chronic renal insufficiency. 6. Uncontrolled diabetes mellitus. RECOMMENDATIONS: Continue Altace at 2.5 mg once a day, hydralazine 25 mg q.i.d., Decadron at 4 mg in travenous q. 6 hours, Dilantin 100 mg intravenously q. 6 hours, heparin 5000 units q. 8 hours, Imdur 30 mg once a day, IV meropenem at 1 gram q. 12 hours, Zyvox at 600 mg intravenously q. 12 hours, Lopr essor 25 mg twice a day. Consider initiating aspirin 81 mg once a day if there is no neurological co ntraindication. Andres Vides MD cc: [id number] TT: 03/30/2017 11:37:26 Confirmation # [id number] Dictation # [id number] mn
--- NOTE | 2017-03-30 12:12 | PN ---
DATE: 03/30/2017 CHIEF COMPLAINT: Follow up status post cardiac arrest, status post anoxic injury. SUBJECTIVE: The patient seen and examined at bedside. The patient is off sedation. When off sedati on, has doll's eye positive. Brainstem reflexes are intact. Gag is present, but minimal. Withdraws to localized noxious stimulus and does have some mild myoclonic effect. Second EEG showed evidence of burst suppression. No further EEG is needed at this time. Nuclear blood flow scan was inconclusi ve due to inadequate dye. MRI of the brain was done, which showed an incidental 1.9 x 2.8 x 1.6 cm le parasagittal high parietal extraaxial mass consistent with a meningioma with mild mass effect. Cu rrently, he is under antibiotics per ID for aspiration pneumonia. Explained to the ICU team that charity ningful recovery to prepresent state is unlikely. Electrolytes are being monitored and replaced. PAST MEDICAL HISTORY: History of hypertension, hyperlipidemia, diabetes, coronary artery disease sta tus post 3 stents, obstructive sleep apnea, chronic obstructive pulmonary disease. REVIEW OF SYSTEMS: A 14-point review of systems is negative except for the HPI. FAMILY HISTORY: Noncontributory. SOCIAL HISTORY: No illicit drug use, smoking, or ETOH abuse at this time. ALLERGIES: No known drug allergies. MEDICATIONS: Reviewed via nurse's reconciliation sheet. PHYSICAL EXAMINATION: VITAL SIGNS: Temperature 99.7, pulse rate is 90, blood pressure 153/67, respiratory rate, the patien t is intubated on sedation. HEENT: The patient is intubated. PERRLA. Extraocular muscles intact. NECK: Supple, no JVD, no adenopathy noted. LUNGS: Decreased breath sounds bilaterally. HEART: S1, S2, normal rate and rhythm. No murmurs, rubs, or gallops. ABDOMEN: Soft, nontender, nondistended. Bowel sounds are present. EXTREMITIES: No clubbing, no cyanosis. Peripheral pulses 2+ felt bilaterally. NEUROLOGIC: The patient is comatose. Speech is difficult to assess at this time. Cranial nerves II through XII are intact. MOTOR: Spontaneous movement of extremities, more myoclonic type. Tone is normal. SENSORY: Withdraws to localized noxious stimulus. DTRs are 1+ and absent at the ankles. COORDINATION AND GAIT: Deferred for now. LABORATORY DATA: Sodium is 136, potassium 3.9, chloride 99, carbon dioxide 29, BUN of 47, creatinine 2.1, random glucose 216. ASSESSMENT AND PLAN: This is a 71-year-old man with past medical history of diabetes, hypertension, coronary artery disease, status post 3 stents, chronic obstructive pulmonary disease, obstructive sle ep apnea, status post cardiac arrest with return of spontaneous circulation, status post hypothermic protocol, now with anoxic encephalopathy. The repeat EEG compared to the first EEG which showed burs t myoclonic activity, the second EEG now shows burst suppression, which is consistent with poor progn osis. The patient is on Keppra and phenytoin for seizure prophylaxis. MRI of the brain just showed incidental left parasagittal extraaxial mass consistent with meningioma and some mild mass effect. T he patient is on p.r.n. Decadron. At this time, recommend: 1. Return to meaningful recovery from prepresent state is very unlikely. If the family is leaning t owards keeping patient for long-term, then will need a percutaneous endoscopic gastrostomy trach and intermediate card tender care. The patient is not brain , but is in a vegetative state. 2. Monitor electrolytes and correct accordingly. 3. Keep blood pressure between 120-130 mmHg. 4. Continue prophylactic antibiotics for likely aspiration pneumonia and systemic inflammatory respo nse syndrome. 5. We will possibly get a palliative care consult and continue with current present medical manageme nt. No further EEGs are necessary at this time. Thank you for this followup. Giovanni Mills MD cc: [phone] TT: 03/30/2017 12:11:40 Confirmation # [id number] Dictation # [id number] misa
--- NOTE | 2017-03-30 14:49 | RAD ---
HISTORY: f/u COMPARISON: 03/29/2017 FINDINGS: LUNGS: No active pulmonary disease. PLEURA: No significant pleural effusion identified, no pneumothorax apparent. CARDIOVASCULAR: Moderate cardiomegaly. Mild vascular congestion OSSEOUS STRUCTURES: No significant abnormalities. VISUALIZED UPPER ABDOMEN: Normal. OTHER FINDINGS: Endotracheal tube and nasogastric tube in satisfactory position. IMPRESSION: Cardiomegaly and mild vascular congestion. Central lines and tubes unchanged
--- NOTE | 2017-03-30 19:46 | CP.PCM.PN ---
Subjective - Date & Time of Evaluation Date of Evaluation: 03/30/17 Time of Evaluation: 08:35 - Subjective Subjective: Medicine progress note for Dr. Vargas/Dr. Escalante service - Krishna Kauffman PGY1 Patient seen and examined at bedside this morning. Patient is intubated, no longer on propofol drip. Decerebrate posturing at times. Patient had a mild fever overnight with a Tmax of 100.4F. Prognosis is poor, discussion to be had with family regarding goals of care. ROS limited due to patient status. Objective - Vital Signs/Intake and Output Vital Signs (last 24 hours): Temp Pulse Resp BP Pulse Ox 99.7 F H 107 H 18 152/65 H 93 L 03/30/17 18:45 03/30/17 18:53 03/30/17 16:15 03/30/17 18:53 03/30/17 18:45 Intake and Output: 03/30/17 03/31/17 18:59 06:59 Intake Total 35 Balance 35 - Medications Medications: Current Medications Albuterol/Ipratropium (Duoneb 3 Mg/0.5 Mg (3 Ml) Ud) 3 ml IH Q2H PRN PRN Reason: Shortness of Breath Albuterol/Ipratropium (Duoneb 3 Mg/0.5 Mg (3 Ml) Ud) 3 ml IH [id number] [facility] Last Admin: 03/30/17 13:10 Dose: 3 ml Budesonide (Pulmicort Respules) 0.5 mg IH [id number] [facility] Last Admin: 03/30/17 07:41 Dose: 0.5 mg Dexamethasone (Decadron Inj) 4 mg IVP Q6H [facility] Last Admin: 03/28/17 13:00 Dose: Not Given Heparin Sodium (Porcine) (Heparin) 5,000 units SC Q8 [facility] PRN Reason: Protocol Last Admin: 03/30/17 13:10 Dose: 5,000 units Hydralazine HCl (Apresoline) 25 mg PO QID [facility] Last Admin: 03/30/17 18:53 Dose: 25 mg Meropenem 1g/NS 100mL IVPB (Meropenem 1g/Ns 100ml Ivpb) 1 gm in 100 mls @ 100 mls/hr IVPB Q12 [facility] PRN Reason: Protocol Stop: 04/05/17 22:01 Last Admin: 03/30/17 10:13 Dose: 100 mls/hr Levetiracetam 1,000 mg/ Sodium (Chloride) 110 mls @ 460 mls/hr IV Q12 [facility] Last Admin: 03/30/17 09:45 Dose: 460 mls/hr Propofol (Diprivan) 1,000 mg in 100 mls @ 3.742 mls/hr IV .Q24H PRN; Protocol; 5 MCG/KG/MIN PRN Reason: TITRATE PER MD ORDER Last Titration: 03/30/17 10:49 Dose: 0 mcg/kg/min, 0 mls/hr Dobutamine HCl/Dextrose (Dobutamine/Dextrose 5% 500mg/250ml) 500 mg in 250 mls @ 9.696 mls/hr IV .Q24H PRN; Protocol; 2.5 MCG/KG/MIN PRN Reason: TITRATE PER PROTOCOL Last Admin: 03/29/17 19:00 Dose: 2.5 mcg/kg/min, 9.696 mls/hr Acetaminophen (Ofirmev) 1,000 mg in 100 mls @ 400 mls/hr IVPB Q6H PRN PRN Reason: Temperature Stop: 03/31/17 23:45 Last Admin: 03/30/17 00:38 Dose: 400 mls/hr Linezolid (Zyvox 600mg/300ml D5w) 600 mg in 300 mls @ 200 mls/hr IVPB Q12 [facility] PRN Reason: Protocol Stop: 04/06/17 10:01 Last Admin: 03/30/17 10:14 Dose: 200 mls/hr Insulin Human Regular (Humulin R Med) 0 units SC Q6 [facility] PRN Reason: Protocol Last Admin: 03/30/17 19:06 Dose: Not Given Isosorbide Mononitrate (Ismo) 10 mg PO 0800,1500 [facility] Last Admin: 03/30/17 18:54 Dose: 10 mg Lorazepam (Ativan) 1 mg IVP Q6H PRN; Protocol PRN Reason: Seizure activity Last Admin: 03/28/17 08:00 Dose: 1 mg Metoprolol Tartrate (Lopressor) 25 mg PO BRKDIN [facility] Last Admin: 03/30/17 18:53 Dose: 25 mg Pantoprazole Sodium (Protonix Inj) 40 mg IVP DAILY [facility] Last Admin: 03/30/17 10:00 Dose: 40 mg Phenytoin (Dilantin) 100 mg IVP Q6H [facility] Last Admin: 03/30/17 18:00 Dose: 100 mg Ramipril (Altace) 2.5 mg PO DAILY [facility] Last Admin: 03/30/17 13:09 Dose: 2.5 mg - Labs Labs: 03/30/17 06:15 03/30/17 06:15 PT 18.0 Seconds (9.9-11.8) H 03/30/17 06:15 INR 1.67 (0.93-1.08) H 03/30/17 06:15 APTT 35.0 Seconds (23.7-30.8) H 03/30/17 06:15 - Head Exam Head Exam: ATRAUMATIC, NORMOCEPHALIC - Respiratory Exam Respiratory Exam: Rales. absent: Rhonchi, Wheezes - Cardiovascular Exam Cardiovascular Exam: +S1, +S2. absent: Gallop, JVD, Rubs - GI/Abdominal Exam GI & Abdominal Exam: Soft, Diminished Bowel Sounds. absent: Distended, Firm, Tenderness - Extremities Exam Extremities Exam: Pedal Edema - Neurological Exam Neurological Exam: absent: Alert, Awake, Oriented x3 - Skin Skin Exam: Dry, Intact, Warm Assessment and Plan - Assessment and Plan (Free Text) Plan: 71yo male with history of ARIELLE, HTN, DMT2, HLD, CAD s/p 3 stents, COPD presents via EMS s/p cardiac arrest with ROSC 1. Cardiac arrest 2. Anoxic encephalopathy 3. Cardiogenic edema 4. Acute kidney injury 5. CAD 6. DM type 2 7. ARIELLE 8. HLD 9. COPD -Patient currently intubated on PRVC 450/30/40/10; no longer on propofol drip -EEG results revealed presence of bursts of myoclonic activity followed by periods of slowing consistent with underlying anoxic encephalopathy -Repeat EEG showed wave bursts of myoclonic activity which correlates with poor prognosis -Continue with neurochecks -CXR reviewed and revealed pulmonary edema with right greater than left -MRI Brain reviewed; revealed extra-axial mass of ~2cm consistent with meningioma; see full report -Brain flow scan non-diagnostic due to poor technique -Echocardiogram revealed LVEF 74% however this was on dobutamine drip -CT head reviewed and revealed 3cm mass in the left frontal lobe with vasogenic edema -Patient started on enteral feeds -Continue with ramipril and hydralazine for afterload reduction -Continue with imdur for preload reduction -Hypothermia protocol initiated per ICU and cardiology recommendations -Continue with keppra and phenytoin per neurology recommendations -Continue with meropenem and vancomycin per ID recommendations -Continue with ISS; fingersticks ACHS -Monitor I's and O's -Blood and urine cultures negative at present time; procalcitonin elevated -Continue with meropenem and linezolid per ID recommendations -Protonix/Heparin for GI/DVT prophylaxis -Neurology following - Dr. Mills -Cardiology following - Dr. Luu -Pulmonology following - Dr. Hopkins -ID following - Dr. Watson -IR consulted and PICC line placed - Dr. Muñoz Patient seen and case discussed with attending, Dr. Vargas
[2017-03-30 20:48] LABS: CALCIUM 8.5 mg/dL (8.4-10.5); POTASSIUM 3.8 mmol/L (3.6-5.0)
[2017-03-31] MEDS: Phenytoin 100 mg/2 ml Inj IVP SCH ×4 (01:00→17:47)
[2017-03-31] MEDS: Albuterol-Ipratrop 3 mg / 0.5 (3 ml) UD IH SCH ×2 (01:48→07:05)
[2017-03-31 05:36] LABS: ARTERIAL BLOOD GAS HCO3 30.6 mmol/L (21-28); ARTERIAL BLOOD GAS O2 CAPACITY 16.8 mL/dl (16-24); ARTERIAL BLOOD GAS O2 CONTENT 16.2 ML/dl (15-23); ARTERIAL BLOOD GAS PH 7.45 (7.35-7.45); ARTERIAL BLOOD HGB O2 SAT 93.5 % (95.0-98.0); CARBOXYHEMOGLOBIN 1.8 % (0.5-1.5); HHB 3.6 % (0-5); METHEMOGLOBIN 1.1 % (0.0-3.0)
[2017-03-31 06:12] LABS: ADD MANUAL DIFF? NO
[2017-03-31 06:18] LABS: BASO # 0.01 K/mm3 (0.0-2.0); BASO % 0.1 % (0.0-3.0); EOS # 0.3 (0.0-0.7); EOS % 2.8 % (1.5-5.0); GRAN # 8.64 (1.4-6.5); GRAN % 76.6 % (50.0-68.0); HEMATOCRIT 37.7 % (42.0-52.0); LYMPH # 1.5 (1.2-3.4); LYMPH % 13.4 % (22.0-35.0); MEAN CELL VOLUME 86.1 fL (80.0-105.0); MEAN CORPUSCULAR HEMOGLOBIN 27.4 pg (25.0-35.0); MEAN CORPUSCULAR HGB CONC 31.8 g/dl (31.0-37.0); MEAN PLATELET VOLUME 11.5 fl (7.0-11.0); MONO # 0.8 (0.1-0.6); MONO % 7.1 % (1.0-6.0); PLATELET COUNT 156 10^3/uL (120.0-450.0); RED CELL DISTRIBUTION WIDTH 15.3 % (11.5-14.5); WHITE BLOOD COUNT 11.3 10^3/ul (4.5-11.0)
[2017-03-31 06:30] LABS: INR 1.25 (0.93-1.08); PARTIAL THROMBOPLASTIN TIME 30.5 Seconds (23.7-30.8)
[2017-03-31 06:39] LABS: BILIRUBIN,TOTAL 0.7 mg/dL (0.2-1.3); CALCIUM 8.5 mg/dL (8.4-10.5); POTASSIUM 3.6 mmol/L (3.6-5.0); TOTAL PROTEIN 6.3 g/dL (5.8-8.3)
[2017-03-31] MEDS: Budesonide 0.5 mg/2 ml Inhal Susp UD IH SCH ×2 (07:05→20:11)
--- NOTE | 2017-03-31 07:43 | CP.PCM.PN ---
<Naty Vallejo - Last Filed: 03/31/17 11:18> Subjective - Date & Time of Evaluation Date of Evaluation: 03/31/17 Time of Evaluation: 07:40 - Subjective Subjective: ICU Progress Note: Patient seen and examined at bedside. There were no acute overnight events. Patient is off sedation and intubated. He is minimally responsive. ROS could not be obtained. Objective - Vital Signs/Intake and Output Vital Signs (last 24 hours): Temp Pulse Resp BP Pulse Ox 99.9 F H 87 30 H 152/77 H 95 03/31/17 06:15 03/31/17 06:15 03/31/17 07:14 03/31/17 06:00 03/31/17 07:14 Intake and Output: 03/31/17 03/31/17 06:59 18:59 Intake Total 1448 Output Total 1600 Balance -152 - Medications Medications: Current Medications Albuterol/Ipratropium (Duoneb 3 Mg/0.5 Mg (3 Ml) Ud) 3 ml IH Q2H PRN PRN Reason: Shortness of Breath Albuterol/Ipratropium (Duoneb 3 Mg/0.5 Mg (3 Ml) Ud) 3 ml IH [id number] [facility] Last Admin: 03/31/17 07:05 Dose: 3 ml Budesonide (Pulmicort Respules) 0.5 mg IH [id number] [facility] Last Admin: 03/31/17 07:05 Dose: 0.5 mg Dexamethasone (Decadron Inj) 4 mg IVP Q6H [facility] Last Admin: 03/28/17 13:00 Dose: Not Given Heparin Sodium (Porcine) (Heparin) 5,000 units SC Q8 [facility] PRN Reason: Protocol Last Admin: 03/31/17 06:15 Dose: 5,000 units Hydralazine HCl (Apresoline) 25 mg PO QID [facility] Last Admin: 03/30/17 22:20 Dose: 25 mg Meropenem 1g/NS 100mL IVPB (Meropenem 1g/Ns 100ml Ivpb) 1 gm in 100 mls @ 100 mls/hr IVPB Q12 [facility] PRN Reason: Protocol Stop: 04/05/17 22:01 Last Admin: 03/30/17 22:20 Dose: 100 mls/hr Levetiracetam 1,000 mg/ Sodium (Chloride) 110 mls @ 460 mls/hr IV Q12 [facility] Last Admin: 03/30/17 22:21 Dose: 460 mls/hr Propofol (Diprivan) 1,000 mg in 100 mls @ 3.742 mls/hr IV .Q24H PRN; Protocol; 5 MCG/KG/MIN PRN Reason: TITRATE PER MD ORDER Last Titration: 03/30/17 10:49 Dose: 0 mcg/kg/min, 0 mls/hr Dobutamine HCl/Dextrose (Dobutamine/Dextrose 5% 500mg/250ml) 500 mg in 250 mls @ 9.696 mls/hr IV .Q24H PRN; Protocol; 2.5 MCG/KG/MIN PRN Reason: TITRATE PER PROTOCOL Last Admin: 03/29/17 19:00 Dose: 2.5 mcg/kg/min, 9.696 mls/hr Acetaminophen (Ofirmev) 1,000 mg in 100 mls @ 400 mls/hr IVPB Q6H PRN PRN Reason: Temperature Stop: 03/31/17 23:45 Last Admin: 03/30/17 00:38 Dose: 400 mls/hr Linezolid (Zyvox 600mg/300ml D5w) 600 mg in 300 mls @ 200 mls/hr IVPB Q12 [facility] PRN Reason: Protocol Stop: 04/06/17 10:01 Last Admin: 03/30/17 22:14 Dose: 200 mls/hr Insulin Human Regular (Humulin R Med) 0 units SC Q6 [facility] PRN Reason: Protocol Last Admin: 03/30/17 19:06 Dose: Not Given Isosorbide Mononitrate (Ismo) 10 mg PO 0800,1500 [facility] Last Admin: 03/30/17 18:54 Dose: 10 mg Lorazepam (Ativan) 1 mg IVP Q6H PRN; Protocol PRN Reason: Seizure activity Last Admin: 03/28/17 08:00 Dose: 1 mg Metoprolol Tartrate (Lopressor) 25 mg PO BRKDIN [facility] Last Admin: 03/30/17 18:53 Dose: 25 mg Pantoprazole Sodium (Protonix Inj) 40 mg IVP DAILY [facility] Last Admin: 03/30/17 10:00 Dose: 40 mg Phenytoin (Dilantin) 100 mg IVP Q6H [facility] Last Admin: 03/31/17 06:15 Dose: 100 mg Ramipril (Altace) 2.5 mg PO DAILY [facility] Last Admin: 03/30/17 13:09 Dose: 2.5 mg - Labs Labs: 03/31/17 05:30 03/31/17 05:30 PT 13.5 Seconds (9.9-11.8) H 03/31/17 05:30 INR 1.25 (0.93-1.08) H 03/31/17 05:30 APTT 30.5 Seconds (23.7-30.8) 03/31/17 05:30 - Constitutional Appears: No Acute Distress - Head Exam Head Exam: ATRAUMATIC, NORMAL INSPECTION, NORMOCEPHALIC - Eye Exam Eye Exam: PERRL Pupil Exam: PERRL - ENT Exam ENT Exam: Mucous Membranes Moist - Neck Exam Neck Exam: Full ROM - Respiratory Exam Respiratory Exam: Clear to Ausculation Bilateral, NORMAL BREATHING PATTERN. absent: Rales, Rhonchi, Wheezes - Cardiovascular Exam Cardiovascular Exam: REGULAR RHYTHM, +S1, +S2. absent: Gallop, Rubs, Murmur - GI/Abdominal Exam GI & Abdominal Exam: Soft, Normal Bowel Sounds. absent: Rigid, Tenderness, Mass , Rebound - Extremities Exam Extremities Exam: Normal Inspection, Pedal Edema - Neurological Exam Neurological Exam: CN II-XII Intact. absent: Awake, Oriented x3 Additional comments: Pt not withdrawing to pain stimuli today in upper extermities bilaterally. Corneal reflex and dolls eye intact. - Skin Skin Exam: Dry, Intact, Normal Color, Warm Assessment and Plan - Assessment and Plan (Free Text) Assessment: This is a 71Y M with PMH HTN, DM, HLD, CAD s/p 3 stents, COPD, ARIELLE s/p cardiac arrest with ROSC and anoxic encephalopathy. He underwent hypothermia protocol and is now warmed up. Patient noted to have brain stem reflexes, but as per neurology pt is in vegetative state. Plan: Neuro: Intubated and off sedation Pt in vegetative state, brain stem reflexes intact Continue neurocheck Keppra and Phenytoin Ativan prn Neuro consulted- recs appreciated Pt mildly febrile overnight, Tylenol IV prn On cooling blanket Maintain normothermia CV: Ramipril, Hydralazine, Lopressor and Imdur Cardio consulted- recs appreciated Maintain MAP >65 Resp: Maintain spO2>90% Aspiration precaution HOB elevated on PRVC Rate: 30, TV: 450, Fio2: 40 and PEEP of 10. - will try to wean as tolerated Continue protective lung ventilation strategy GI: Jevity with goal of 60ml/hr /Neprho: AYE- improved Cr now 1.6 Urine output improved now 120ml/hr Continue to monitor I&O maintain euvolemia Will continue to monitor electrolytes and replace as needed Heme: Hgb stable No signs of bleeding at this time Continue to monitor CBC ID: Leukocytosis improving, mildly febrile Blood and urine culture negative at this time ID consulted-recs appreciated On Merrem and Linezolid Endo: On ISS BGM ACHS Maintain euglycemia- between 140-180 GI ppx: Pepcid IVP DVT ppx: Heparin SC q8h Dispo: Discussed plan of care with of pt. She seems as though she is leaning towards trach and peg, but wants to talk to family before making any decision. case seen, discussed and reviewed with attending. Alton Vallejo PGY1 <Gualberto PHAN,[facility] - Last Filed: 03/31/17 14:20> Objective - Vital Signs/Intake and Output Vital Signs (last 24 hours): Temp Pulse Resp BP Pulse Ox 100 F H 77 30 H 125/89 95 03/31/17 08:00 03/31/17 13:15 03/31/17 07:14 03/31/17 13:15 03/31/17 07:14 Intake and Output: 03/31/17 03/31/17 06:59 18:59 Intake Total 1448 225 Output Total 1600 Balance -152 225 - Medications Medications: Current Medications Albuterol/Ipratropium (Duoneb 3 Mg/0.5 Mg (3 Ml) Ud) 3 ml IH Q12H [facility] Last Admin: 03/31/17 13:01 Dose: Not Given Budesonide (Pulmicort Respules) 0.5 mg IH [id number] [facility] Last Admin: 03/31/17 07:05 Dose: 0.5 mg Heparin Sodium (Porcine) (Heparin) 5,000 units SC Q8 [facility] PRN Reason: Protocol Last Admin: 03/31/17 13:10 Dose: 5,000 units Hydralazine HCl (Apresoline) 25 mg PO QID [facility] Last Admin: 03/31/17 13:15 Dose: 25 mg Meropenem 1g/NS 100mL IVPB (Meropenem 1g/Ns 100ml Ivpb) 1 gm in 100 mls @ 100 mls/hr IVPB Q12 [facility] PRN Reason: Protocol Stop: 04/05/17 22:01 Last Admin: 03/31/17 09:34 Dose: 100 mls/hr Levetiracetam 1,000 mg/ Sodium (Chloride) 110 mls @ 460 mls/hr IV Q12 [facility] Last Admin: 03/31/17 10:24 Dose: 460 mls/hr Acetaminophen (Ofirmev) 1,000 mg in 100 mls @ 400 mls/hr IVPB Q6H PRN PRN Reason: Temperature Stop: 03/31/17 23:45 Last Admin: 03/30/17 00:38 Dose: 400 mls/hr Linezolid (Zyvox 600mg/300ml D5w) 600 mg in 300 mls @ 200 mls/hr IVPB Q12 [facility] PRN Reason: Protocol Stop: 04/06/17 10:01 Last Admin: 03/31/17 09:35 Dose: 200 mls/hr Insulin Human Regular (Humulin R Med) 0 units SC Q6 [facility] PRN Reason: Protocol Last Admin: 03/31/17 13:11 Dose: 3 units Isosorbide Mononitrate (Ismo) 10 mg PO 0800,1500 [facility] Last Admin: 03/31/17 08:32 Dose: 10 mg Lorazepam (Ativan) 1 mg IVP Q6H PRN; Protocol PRN Reason: Seizure activity Last Admin: 03/28/17 08:00 Dose: 1 mg Metoprolol Tartrate (Lopressor) 25 mg PO BRKDIN [facility] Last Admin: 03/31/17 08:32 Dose: 25 mg Pantoprazole Sodium (Protonix Inj) 40 mg IVP DAILY [facility] Last Admin: 03/31/17 09:33 Dose: 40 mg Phenytoin (Dilantin) 100 mg IVP Q6H [facility] Last Admin: 03/31/17 13:15 Dose: 100 mg Ramipril (Altace) 2.5 mg PO DAILY [facility] Last Admin: 03/31/17 09:33 Dose: 2.5 mg - Labs Labs: 03/31/17 05:30 03/31/17 05:30 PT 13.5 Seconds (9.9-11.8) H 03/31/17 05:30 INR 1.25 (0.93-1.08) H 03/31/17 05:30 APTT 30.5 Seconds (23.7-30.8) 03/31/17 05:30 Attending/Attestation - Attestation I have personally seen and examined this patient.: Yes I have fully participated in the care of the patient.: Yes I have reviewed all pertinent clinical information, including history, physical exam and plan: Yes Notes (Text): 03/31/17 14:15 S/P out of hospital cardiac arrest s/p hypothermia protocol Currently has some neurological function such as Cranial nerves and respiratory centers. Able to P.S and SBT Offered tracheostomy and PEG for LTAC placement Continue on all cardiac medications. Tube feeds Empiric abx for mild temp and WBC. PPI Heparin continued SQ if no cardiac cath planned. Cardiology following patient cc time 65 min
[2017-03-31] MEDS: Insulin Reg-MEDIUM-Coverage SC SCH ×4 (08:30→17:25)
--- NOTE | 2017-03-31 08:34 | PN ---
DATE: 03/31/2017(600am--650am) PULMONARY NOTE SUBJECTIVE: The patient remains on the ventilator. He is very lethargic at the present time. He is not sedated (discussed with nurse). PHYSICAL EXAMINATION: VITAL SIGNS: Temperature is 99.9, pulse 87, respirations 30/30, blood pressure 152/77. HEENT: Normocephalic, atraumatic. No JVD. CARDIOVASCULAR: Positive S1, S2. No S3. LUNGS: Decreased breath sounds at the bases. Minimal rhonchi. No wheezing. EXTREMITIES: Mild edema. No cyanosis, no clubbing. GASTROINTESTINAL: Abdomen is soft, nondistended. Bowel sounds are positive. SKIN: No acute rash. NEUROLOGIC: Limited at the present time. PERTINENT LABORATORY DATA: Chest x-ray was done this morning and reviewed. The chest x-ray reveals minimal residual infiltrates - significantly decreased from the original film. Arterial blood gas was done on assist control of 30, tidal volume 450, FiO2 40%, 10 of PEEP. Results are: pH 7.45, pCO2 of 44, pO2 of 74. IMPRESSION: 1. Ventricular fibrillation arrest, status post cardiopulmonary resuscitation. 2. Respiratory failure. 3. Coronary artery disease. 4. Chronic obstructive pulmonary disease. 5. Probable aspiration pneumonia. 6. Encephalopathy. PLAN: The patient remains in the ICU. He remains on the ventilator. He is very lethargic this morning and not sedated (discussed with nurse). I did discuss the case with the night nurse at length. The night nurse stated that the patient does open his eyes at times, but has no purposeful movements. Neurologic workup is in in progress. Input by Dr. Mills is noted. I did review the chest x-ray as above. The chest x-ray continues to slowly improve with decreased pulmonary infiltrates. I have also reviewed the arterial blood gas. The arterial blood gas has also improved - with normalization of the pH and a decrease in the alveolar arterial gradient. I would continue with the current ventilator settings for now. The patient remains on antibiotic therapy - as per infectious disease. Linezolid was added yesterday. The temperatures are decreased. Input by cardiology is also noted. Unfortunately, the patient' s neurologic status has not improved significantly, as we would have hoped. Therefore, the patient's overall status/prognosis remains very guarded at best. I do discuss the case with the daily. I will also discuss the above with the entire ICU team in the next few moments. I will also discuss the above with Dr. Vargas later this morning. Sacha Hopkins MD cc: [id number] TT: 03/31/2017 08:33:04 Confirmation # [id number] Dictation # [id number] MTDD
--- NOTE | 2017-03-31 08:51 | PN ---
DATE: 03/31/2017 The patient is in bed in no acute distress and no changes. The patient remains intubated on a ventil ator. The patient is unresponsive. Information is gathered from the nurse caring for the patient. There h ave been no fevers last night. PHYSICAL EXAMINATION: VITAL SIGNS: Temperature is 99.9. T-max is 100.2. Blood pressure is 152/77, respiratory rate on a vent, the heart rate of 82. HEENT: Unchanged. The patient is not responsive. NECK: Supple. LUNGS: Have decreased breath sounds. HEART: Normal S1, S2. ABDOMEN: Soft. Chest x-ray from today is pending. LABORATORY DATA: White count is down to 11,300, and hemoglobin of 12. Platelets are 156. Coagulati on is noted. Chemistries reveal a BUN of 38, creatinine of 1.6. Urinalysis is noted. Review of orders reveals the patient to be on meropenem and Zyvox. ASSESSMENT AND PLAN: This is a 71-year-old male seen earlier this morning in the intensive care unit 129, bed 3 with systemic inflammatory response syndrome, admitted with hypothermia and leukocytosis, status post cardiorespiratory arrest, must rule out acute coronary syndrome. The patient had an MRI of the brain. Left parasagittal high parietal extraaxial mass with mild mass with mass effect on th e subadjacent posterior frontal edema. Chest x-ray is noted. No active disease. Dr. Giovanni Mills's progress note from yesterday is review ed. The patient is in vegetative state. We will continue the antibiotics for now pending final cult ure results, on meropenem and linezolid. Overall prognosis is quite poor. Ludwin Watson MD cc: [id number] TT: 03/31/2017 08:51:00 Confirmation # [id number] Dictation # [id number]
--- NOTE | 2017-03-31 08:59 | CP.PCM.PN ---
<Krishna Kauffman - Last Filed: 03/31/17 22:00> Subjective - Date & Time of Evaluation Date of Evaluation: 03/31/17 Time of Evaluation: 08:56 - Subjective Subjective: Medicine progress note for Dr. Vargas/Dr. Escalante service - Krishna Kauffman PGY1 Patient seen and examined at bedside this morning. Overnight had a temperature with Tmax of 100.4F. Receiving Ofirmev. Otherwise, no other overnight issues reported. Patient currently intubated and off sedation. ROS limited due to patient status. Objective - Vital Signs/Intake and Output Vital Signs (last 24 hours): Temp Pulse Resp BP Pulse Ox 99.9 F H 84 30 H 152/80 H 95 03/31/17 06:15 03/31/17 08:32 03/31/17 07:14 03/31/17 08:32 03/31/17 07:14 Intake and Output: 03/31/17 03/31/17 06:59 18:59 Intake Total 1448 225 Output Total 1600 Balance -152 225 - Medications Medications: Current Medications Albuterol/Ipratropium (Duoneb 3 Mg/0.5 Mg (3 Ml) Ud) 3 ml IH Q2H PRN PRN Reason: Shortness of Breath Albuterol/Ipratropium (Duoneb 3 Mg/0.5 Mg (3 Ml) Ud) 3 ml IH [id number] [facility] Last Admin: 03/31/17 07:05 Dose: 3 ml Budesonide (Pulmicort Respules) 0.5 mg IH [id number] [facility] Last Admin: 03/31/17 07:05 Dose: 0.5 mg Dexamethasone (Decadron Inj) 4 mg IVP Q6H [facility] Last Admin: 03/28/17 13:00 Dose: Not Given Heparin Sodium (Porcine) (Heparin) 5,000 units SC Q8 [facility] PRN Reason: Protocol Last Admin: 03/31/17 06:15 Dose: 5,000 units Hydralazine HCl (Apresoline) 25 mg PO QID [facility] Last Admin: 03/30/17 22:20 Dose: 25 mg Meropenem 1g/NS 100mL IVPB (Meropenem 1g/Ns 100ml Ivpb) 1 gm in 100 mls @ 100 mls/hr IVPB Q12 [facility] PRN Reason: Protocol Stop: 04/05/17 22:01 Last Admin: 03/30/17 22:20 Dose: 100 mls/hr Levetiracetam 1,000 mg/ Sodium (Chloride) 110 mls @ 460 mls/hr IV Q12 [facility] Last Admin: 03/30/17 22:21 Dose: 460 mls/hr Propofol (Diprivan) 1,000 mg in 100 mls @ 3.742 mls/hr IV .Q24H PRN; Protocol; 5 MCG/KG/MIN PRN Reason: TITRATE PER MD ORDER Last Titration: 03/30/17 10:49 Dose: 0 mcg/kg/min, 0 mls/hr Dobutamine HCl/Dextrose (Dobutamine/Dextrose 5% 500mg/250ml) 500 mg in 250 mls @ 9.696 mls/hr IV .Q24H PRN; Protocol; 2.5 MCG/KG/MIN PRN Reason: TITRATE PER PROTOCOL Last Titration: 03/31/17 07:50 Dose: 0 mcg/kg/min, 0 mls/hr Acetaminophen (Ofirmev) 1,000 mg in 100 mls @ 400 mls/hr IVPB Q6H PRN PRN Reason: Temperature Stop: 03/31/17 23:45 Last Admin: 03/30/17 00:38 Dose: 400 mls/hr Linezolid (Zyvox 600mg/300ml D5w) 600 mg in 300 mls @ 200 mls/hr IVPB Q12 [facility] PRN Reason: Protocol Stop: 04/06/17 10:01 Last Admin: 03/30/17 22:14 Dose: 200 mls/hr Insulin Human Regular (Humulin R Med) 0 units SC Q6 [facility] PRN Reason: Protocol Last Admin: 03/31/17 08:30 Dose: 3 units Isosorbide Mononitrate (Ismo) 10 mg PO 0800,1500 [facility] Last Admin: 03/31/17 08:32 Dose: 10 mg Lorazepam (Ativan) 1 mg IVP Q6H PRN; Protocol PRN Reason: Seizure activity Last Admin: 03/28/17 08:00 Dose: 1 mg Metoprolol Tartrate (Lopressor) 25 mg PO BRKDIN [facility] Last Admin: 03/31/17 08:32 Dose: 25 mg Pantoprazole Sodium (Protonix Inj) 40 mg IVP DAILY [facility] Last Admin: 03/30/17 10:00 Dose: 40 mg Phenytoin (Dilantin) 100 mg IVP Q6H [facility] Last Admin: 03/31/17 06:15 Dose: 100 mg Ramipril (Altace) 2.5 mg PO DAILY [facility] Last Admin: 03/30/17 13:09 Dose: 2.5 mg - Labs Labs: 03/31/17 05:30 03/31/17 05:30 PT 13.5 Seconds (9.9-11.8) H 03/31/17 05:30 INR 1.25 (0.93-1.08) H 03/31/17 05:30 APTT 30.5 Seconds (23.7-30.8) 03/31/17 05:30 - Head Exam Head Exam: ATRAUMATIC, NORMOCEPHALIC - Respiratory Exam Respiratory Exam: Clear to Ausculation Bilateral. absent: Rales, Rhonchi, Wheezes - Cardiovascular Exam Cardiovascular Exam: RRR, +S1, +S2. absent: Gallop, Rubs - GI/Abdominal Exam GI & Abdominal Exam: Soft. absent: Distended, Firm, Guarding, Rigid, Tenderness - Extremities Exam Extremities Exam: Pedal Edema - Neurological Exam Neurological Exam: absent: Alert, Awake, Oriented x3 - Skin Skin Exam: Dry, Intact, Warm Assessment and Plan - Assessment and Plan (Free Text) Plan: 71yo male with history of ARIELLE, HTN, DMT2, HLD, CAD s/p 3 stents, COPD presents via EMS s/p cardiac arrest with ROSC 1. Cardiac arrest 2. Anoxic encephalopathy 3. Cardiogenic edema 4. Acute kidney injury 5. CAD 6. DM type 2 7. ARIELLE 8. HLD 9. COPD -Patient currently intubated on PRVC 450/30/40/10; Patient to be attempted to be weaned as tolerated; no longer on propofol drip -EEG results revealed presence of bursts of myoclonic activity followed by periods of slowing consistent with underlying anoxic encephalopathy -Repeat EEG showed wave bursts of myoclonic activity which correlates with poor prognosis -Continue with neurochecks -CXR reviewed and revealed pulmonary edema with right greater than left -MRI Brain reviewed; revealed extra-axial mass of ~2cm consistent with meningioma; see full report -Brain flow scan non-diagnostic due to poor technique -Echocardiogram revealed LVEF 74% however this was on dobutamine drip -CT head reviewed and revealed 3cm mass in the left frontal lobe with vasogenic edema -Patient started on enteral feeds -Continue with ramipril and hydralazine for afterload reduction -Continue with imdur for preload reduction -Hypothermia protocol initiated per ICU and cardiology recommendations -Continue with keppra and phenytoin per neurology recommendations -Continue with meropenem and vancomycin per ID recommendations -Continue with ISS; fingersticks ACHS -Monitor I's and O's -Blood and urine cultures negative at present time; procalcitonin elevated -Continue with meropenem and linezolid per ID recommendations -Protonix/Heparin for GI/DVT prophylaxis -Neurology following - Dr. Mills -Cardiology following - Dr. Luu -Pulmonology following - Dr. Hopkins -ID following - Dr. Watson -IR consulted and PICC line placed - Dr. Muñoz -Prognosis guarded -Extensive discussion regarding goals of care took place with patient's today; Likely plan for trach/peg Patient seen and case discussed with attending, Dr. Escalante <Td Escalante - Last Filed: 04/01/17 18:48> Objective - Vital Signs/Intake and Output Vital Signs (last 24 hours): Temp Pulse Resp BP Pulse Ox 100.0 F H 66 30 H 148/67 96 04/01/17 06:15 04/01/17 18:21 04/01/17 07:22 04/01/17 18:21 04/01/17 07:22 - Medications Medications: Current Medications Albuterol/Ipratropium (Duoneb 3 Mg/0.5 Mg (3 Ml) Ud) 3 ml IH [id number] [facility] Last Admin: 04/01/17 07:16 Dose: 3 ml Budesonide (Pulmicort Respules) 0.5 mg IH [id number] [facility] Last Admin: 04/01/17 07:16 Dose: 0.5 mg Heparin Sodium (Porcine) (Heparin) 5,000 units SC Q8 [facility] PRN Reason: Protocol Last Admin: 04/01/17 14:18 Dose: 5,000 units Hydralazine HCl (Apresoline) 25 mg PO QID [facility] Last Admin: 04/01/17 18:21 Dose: 25 mg Meropenem 1g/NS 100mL IVPB (Meropenem 1g/Ns 100ml Ivpb) 1 gm in 100 mls @ 100 mls/hr IVPB Q12 [facility] PRN Reason: Protocol Stop: 04/05/17 22:01 Last Admin: 04/01/17 09:22 Dose: 100 mls/hr Levetiracetam 1,000 mg/ Sodium (Chloride) 110 mls @ 460 mls/hr IV Q12 [facility] Last Admin: 04/01/17 09:07 Dose: 460 mls/hr Linezolid (Zyvox 600mg/300ml D5w) 600 mg in 300 mls @ 200 mls/hr IVPB Q12 [facility] PRN Reason: Protocol Stop: 04/06/17 10:01 Last Admin: 04/01/17 09:21 Dose: 200 mls/hr Insulin Human Regular (Humulin R Med) 0 units SC Q6 [facility] PRN Reason: Protocol Last Admin: 04/01/17 18:17 Dose: 1 units Isosorbide Mononitrate (Ismo) 10 mg PO 0800,1500 [facility] Last Admin: 04/01/17 14:18 Dose: 10 mg Lorazepam (Ativan) 1 mg IVP Q6H PRN; Protocol PRN Reason: Seizure activity Last Admin: 03/28/17 08:00 Dose: 1 mg Metoprolol Tartrate (Lopressor) 25 mg PO BRKDIN [facility] Last Admin: 04/01/17 18:20 Dose: 25 mg Pantoprazole Sodium (Protonix Inj) 40 mg IVP DAILY [facility] Last Admin: 04/01/17 09:20 Dose: 40 mg Phenytoin (Dilantin) 100 mg IVP Q6H [facility] Last Admin: 04/01/17 18:21 Dose: 100 mg Polyethylene Glycol (Miralax) 17 gm PO BID [facility] Last Admin: 04/01/17 18:20 Dose: 17 gm Ramipril (Altace) 2.5 mg PO DAILY [facility] Last Admin: 04/01/17 09:19 Dose: 2.5 mg - Labs Labs: 04/01/17 06:35 04/01/17 06:35 PT 12.2 Seconds (9.9-11.8) H 04/01/17 06:35 INR 1.13 (0.93-1.08) H 04/01/17 06:35 APTT 27.5 Seconds (23.7-30.8) 04/01/17 06:35 Attending/Attestation - Attestation I have personally seen and examined this patient.: Yes I have fully participated in the care of the patient.: Yes I have reviewed all pertinent clinical information, including history, physical exam and plan: Yes Notes (Text): 04/01/17 18:48 Medical record note made by the resident after discussion with my direction and input after the patient was personally seen and examined by me. I have reviewed the chart and agree that the record accurately reflects by personal performance of the history, physical exam, data review, and medical decision-making, in the course for the patient. I have also personally directed the plan of care.
--- NOTE | 2017-03-31 09:16 | RAD ---
HISTORY: f/u COMPARISON: 03/30/2017 FINDINGS: LUNGS: No active pulmonary disease. PLEURA: No significant pleural effusion identified, no pneumothorax apparent. CARDIOVASCULAR: Mild cardiomegaly and mild to moderate vascular congestion OSSEOUS STRUCTURES: No significant abnormalities. VISUALIZED UPPER ABDOMEN: Normal. OTHER FINDINGS: Endotracheal and nasogastric tubes remain in satisfactory position IMPRESSION: Mild to moderate vascular congestion unchanged
[2017-03-31] MEDS: Meropenem 1g/NS 100mL IVPB 1 GM/100 ML PIGGYBACK IVPB SCH ×2 (09:34→22:53)
[2017-03-31] MEDS: Linezolid 600 mg in D5W 300 ml 600 MG/300 ML BAG IVPB SCH ×2 (09:35→22:53)
[2017-03-31] MEDS: levETIRAcetam 1,000 MG in Sodium Chloride 0.9% 100 ML IV SCH ×2 (10:24→22:29)
[2017-03-31] MEDS ORDERED: Albuterol-Ipratrop 3 mg / 0.5 (3 ml) UD IH SCH (11:30)
--- NOTE | 2017-03-31 12:04 | PN ---
DATE: 03/31/2017 SUBJECTIVE: The patient is still deeply comatose on the vent. He is off Dobutrex infusion. No repo rted ventricular arrhythmia. PHYSICAL EXAMINATION: VITAL SIGNS: Blood pressure 151/82, heart rate 84, temperature 100 rectally, respirations 30. HEENT: No icterus. NECK: No JVD. CHEST: Bilateral rhonchi. HEART: S1, S2 regular. EXTREMITIES: No edema. LABORATORIES: Hemoglobin and hematocrit 12 and 37.7, white count and platelet count are 11.3 and 156 ,000. Today's BUN and creatinine are 38 and 1.6, glucose 166. The rest of SMA-7 is within normal li mits. Today's chest x-ray report, mild to moderate vascular congestion, unchanged. ASSESSMENT: 1. Status post cardiac arrest. 2. Anoxic encephalopathy. 3. Coronary artery disease with history of coronary stenting in the past. 4. Left parietal lobe brain mets with vasogenic edema. 5. Seizure activity. 6. Chronic renal insufficiency. 7. Uncontrolled diabetes mellitus. RECOMMENDATIONS: Continue current Altace at 2.5 mg daily, hydralazine 25 mg q.i.d., Dilantin 100 mg intravenously q. 6 hours, heparin 5000 units q. 8 hours, IV meropenem at 1 gram q. 12 hours, Lopresso r 25 mg twice a day and IV Zyvox 600 mg intravenously q. 12 hours. Blood cultures are negative after 3 days. The case was discussed in detail with the patient's at the bedside. Andres Vides MD cc: [id number] TT: 03/31/2017 12:03:44 Confirmation # [id number] Dictation # [id number] misa
--- NOTE | 2017-03-31 13:01 | CP.PCM.CON ---
History of Present Illness - History of Present Illness History of Present Illness: Palliative consult requested by Dr Ya Escalante Reason: Goals of care 71 year old male who became unresponsive at home. EMS> ACLS> Ventricular fibrillation> shocked twice, intubated in the field. Pulse regained, pupils fixed and dilated, no corneal reflex upon arrival to ED. PMHx: COPD,arthritis,CAD s/p stent X3, HTN, HLD,DM. Social History: Former smoker, occasional alcohol, no drug abuse. , lives with spouse. Family History: Non contributory Advance Care Plan: The patient did not have an Advanced Directive. He is a full code Review of Systems: Intubated, unresponsive. Past Patient History - Infectious Disease Hx of Infectious Diseases: None - Tetanus Immunizations Tetanus Immunization: Unknown - Past Social History Smoking Status: Former Smoker - CARDIAC Hx Congestive Heart Failure: Yes Hx Pacemaker: No - PULMONARY Hx Asthma: Yes Hx Chronic Obstructive Pulmonary Disease (COPD): Yes - NEUROLOGICAL Hx Neurological Disorder: No - HEENT Hx HEENT Problems: No - RENAL Hx Chronic Kidney Disease: No - ENDOCRINE/METABOLIC Hx Diabetes Mellitus Type 2: Yes Hx Hypothyroidism: Yes - HEMATOLOGICAL/ONCOLOGICAL Hx Blood Disorders: No - INTEGUMENTARY Hx Dermatological Problems: No - MUSCULOSKELETAL/RHEUMATOLOGICAL Hx Falls: Yes - GASTROINTESTINAL Hx Gastrointestinal Disorders: No - GENITOURINARY/GYNECOLOGICAL Hx Genitourinary Disorders: No - PSYCHIATRIC Hx Emotional Abuse: No Hx Physical Abuse: No - SURGICAL HISTORY Hx Coronary Stent: Yes (April) Hx Orthopedic Surgery: Yes (right arm) - ANESTHESIA Hx Anesthesia Reactions: No Hx Malignant Hyperthermia: No Meds Allergies/Adverse Reactions: Allergies Allergy/AdvReac Type Severity Reaction Status Date / Time No Known Allergies Allergy Verified 03/27/17 11:44 - Medications Medications: Current Medications Albuterol/Ipratropium (Duoneb 3 Mg/0.5 Mg (3 Ml) Ud) 3 ml IH Q12H [facility] Budesonide (Pulmicort Respules) 0.5 mg IH [id number] [facility] Last Admin: 03/31/17 07:05 Dose: 0.5 mg Heparin Sodium (Porcine) (Heparin) 5,000 units SC Q8 [facility] PRN Reason: Protocol Last Admin: 03/31/17 06:15 Dose: 5,000 units Hydralazine HCl (Apresoline) 25 mg PO QID [facility] Last Admin: 03/31/17 09:33 Dose: 25 mg Meropenem 1g/NS 100mL IVPB (Meropenem 1g/Ns 100ml Ivpb) 1 gm in 100 mls @ 100 mls/hr IVPB Q12 [facility] PRN Reason: Protocol Stop: 04/05/17 22:01 Last Admin: 03/31/17 09:34 Dose: 100 mls/hr Levetiracetam 1,000 mg/ Sodium (Chloride) 110 mls @ 460 mls/hr IV Q12 [facility] Last Admin: 03/31/17 10:24 Dose: 460 mls/hr Acetaminophen (Ofirmev) 1,000 mg in 100 mls @ 400 mls/hr IVPB Q6H PRN PRN Reason: Temperature Stop: 03/31/17 23:45 Last Admin: 03/30/17 00:38 Dose: 400 mls/hr Linezolid (Zyvox 600mg/300ml D5w) 600 mg in 300 mls @ 200 mls/hr IVPB Q12 [facility] PRN Reason: Protocol Stop: 04/06/17 10:01 Last Admin: 03/31/17 09:35 Dose: 200 mls/hr Insulin Human Regular (Humulin R Med) 0 units SC Q6 [facility] PRN Reason: Protocol Last Admin: 03/31/17 08:30 Dose: 3 units Isosorbide Mononitrate (Ismo) 10 mg PO 0800,1500 [facility] Last Admin: 03/31/17 08:32 Dose: 10 mg Lorazepam (Ativan) 1 mg IVP Q6H PRN; Protocol PRN Reason: Seizure activity Last Admin: 03/28/17 08:00 Dose: 1 mg Metoprolol Tartrate (Lopressor) 25 mg PO BRKDIN [facility] Last Admin: 03/31/17 08:32 Dose: 25 mg Pantoprazole Sodium (Protonix Inj) 40 mg IVP DAILY [facility] Last Admin: 03/31/17 09:33 Dose: 40 mg Phenytoin (Dilantin) 100 mg IVP Q6H [facility] Last Admin: 03/31/17 06:15 Dose: 100 mg Ramipril (Altace) 2.5 mg PO DAILY [facility] Last Admin: 03/31/17 09:33 Dose: 2.5 mg Physical Exam - Constitutional Appears: Chronically Ill - Head Exam Head Exam: NORMAL INSPECTION - Eye Exam Pupil Exam: Fixed, PERRL - Respiratory Exam Respiratory Exam: Clear to Auscultation Bilateral, NORMAL BREATHING PATTERN - Cardiovascular Exam Cardiovascular Exam: REGULAR RHYTHM, +S1, +S2 - GI/Abdominal Exam GI & Abdominal Exam: Diminished Bowel Sounds, Soft - Extremities Exam Extremities exam: Positive for: normal inspection, pedal pulses present - Neurological Exam Neurological exam: CN II-XII Intact Additional comments: no gag or corneal reflex - Skin Skin Exam: Dry, Warm - Additional Findings Additional findings: Palliative performance scale rating 10% Results - Vital Signs Recent Vital Signs: Last Vital Signs Temp 100 F H 03/31/17 08:00 Pulse 84 03/31/17 09:33 Resp 30 H 03/31/17 07:14 BP 151/82 H 03/31/17 09:33 Pulse Ox 95 03/31/17 07:14 - Labs Result Diagrams: 04/01/17 06:35 04/01/17 06:35 Labs: Laboratory Results - last 24 hr 03/30/17 03/30/17 03/30/17 06:30 11:40 17:53 WBC RBC Hgb Hct MCV MCH MCHC RDW Plt Count MPV Gran % Lymph % (Auto) [place] % (Auto) Eos % (Auto) Baso % (Auto) Gran # Lymph # [place] # Eos # Baso # PT INR APTT pCO2 pO2 HCO3 ABG pH ABG Total CO2 ABG O2 Saturation ABG O2 Content ABG Base Excess ABG Hemoglobin ABG Carboxyhemoglobin POC ABG HHb (Measured) ABG Methemoglobin ABG O2 Capacity Hgb O2 Saturation FiO2 Sodium Potassium Chloride Carbon Dioxide Anion Gap BUN Creatinine Est GFR ( Amer) Est GFR (Non-Af Amer) POC Glucose (mg/dL) 191 H 176 H Random Glucose Calcium Total Bilirubin AST ALT Alkaline Phosphatase Total Protein Albumin Globulin Albumin/Globulin Ratio Procalcitonin 6.21 H 03/30/17 03/30/17 03/30/17 20:10 22:10 23:15 WBC RBC Hgb Hct MCV MCH MCHC RDW Plt Count MPV Gran % Lymph % (Auto) [place] % (Auto) Eos % (Auto) Baso % (Auto) Gran # Lymph # [place] # Eos # Baso # PT INR APTT pCO2 pO2 HCO3 ABG pH ABG Total CO2 ABG O2 Saturation ABG O2 Content ABG Base Excess ABG Hemoglobin ABG Carboxyhemoglobin POC ABG HHb (Measured) ABG Methemoglobin ABG O2 Capacity Hgb O2 Saturation FiO2 Sodium 141 Potassium 3.8 Chloride 103 Carbon Dioxide 32 Anion Gap 10 BUN 44 H Creatinine 1.9 H Est GFR ( Amer) 42 Est GFR (Non-Af Amer) 35 POC Glucose (mg/dL) 175 H 172 H Random Glucose 155 H Calcium 8.5 Total Bilirubin AST ALT Alkaline Phosphatase Total Protein Albumin Globulin Albumin/Globulin Ratio Procalcitonin 03/31/17 03/31/17 03/31/17 05:28 05:30 05:30 WBC 11.3 H RBC 4.38 Hgb 12.0 L Hct 37.7 L MCV 86.1 MCH 27.4 MCHC 31.8 RDW 15.3 H Plt Count 156 MPV 11.5 H Gran % 76.6 H Lymph % (Auto) 13.4 L [place] % (Auto) 7.1 H Eos % (Auto) 2.8 Baso % (Auto) 0.1 Gran # 8.64 H Lymph # 1.5 [place] # 0.8 H Eos # 0.3 Baso # 0.01 PT INR APTT pCO2 44 pO2 74.0 L HCO3 30.6 H ABG pH 7.45 ABG Total CO2 32.0 H ABG O2 Saturation 96.3 ABG O2 Content 16.2 ABG Base Excess 5.8 H ABG Hemoglobin 12.3 ABG Carboxyhemoglobin 1.8 H POC ABG HHb (Measured) 3.6 ABG Methemoglobin 1.1 ABG O2 Capacity 16.8 Hgb O2 Saturation 93.5 L FiO2 40.0 Sodium 142 Potassium 3.6 Chloride 105 Carbon Dioxide 30 Anion Gap 11 BUN 38 H Creatinine 1.6 H Est GFR ( Amer) 52 Est GFR (Non-Af Amer) 43 POC Glucose (mg/dL) Random Glucose 166 H Calcium 8.5 Total Bilirubin 0.7 AST 160 H ALT 45 Alkaline Phosphatase 85 Total Protein 6.3 Albumin 3.1 Globulin 3.1 Albumin/Globulin Ratio 1.0 L Procalcitonin 03/31/17 03/31/17 03/31/17 05:30 06:23 11:59 WBC RBC Hgb Hct MCV MCH MCHC RDW Plt Count MPV Gran % Lymph % (Auto) [place] % (Auto) Eos % (Auto) Baso % (Auto) Gran # Lymph # [place] # Eos # Baso # PT 13.5 H INR 1.25 H APTT 30.5 pCO2 pO2 HCO3 ABG pH ABG Total CO2 ABG O2 Saturation ABG O2 Content ABG Base Excess ABG Hemoglobin ABG Carboxyhemoglobin POC ABG HHb (Measured) ABG Methemoglobin ABG O2 Capacity Hgb O2 Saturation FiO2 Sodium Potassium Chloride Carbon Dioxide Anion Gap BUN Creatinine Est GFR ( Amer) Est GFR (Non-Af Amer) POC Glucose (mg/dL) 200 H 218 H Random Glucose Calcium Total Bilirubin AST ALT Alkaline Phosphatase Total Protein Albumin Globulin Albumin/Globulin Ratio Procalcitonin Assessment & Plan - Assessment and Plan (Free Text) Assessment: 71 year old male anoxic brain injury s/p cardiac arrest, s/p hypothermia protocol. Ventilator dependent. Hemodynamically stable.As per neurology, patient is is not brain but is in a vegetative state. I was asked to meet with patient's to provide psychosocial support as well as helping to establish future goals of care. Patient's overwhelmed by the severity of patients situation. She is considering all options for future. She states that "he would do everything" for her so she feels she must do the same. I explained that everything possible has already been. She understands that he will never return to baseline and that he would need [facility]. Alternative for comfort care offered. She is very conflicted as to what decisions to make. She is clearly not accepted what has happened. I encouraged her to have her children come so that family could be involved. She agrees that this is important. She states her children are in the medical field and that will be supportive to her. She is not ready to make him a DNR. She states that they are very devout [place]. I offered to have a mold unloader speak with her as well. She has already been in touch with her local [place] mold unloader who will come to see her today. Psychosocial support given. is appreciative of my involvement. Time spent in in goals of care discussion, 35 minutes. Plan: Will follow and assist family with establishing future goals of care.
[2017-03-31] MEDS: POLYETHYLENE GLYCOL 3350 17 GM/Dose PACKET PO SCH (17:19)
[2017-03-31 18:49] LABS: URINE BILIRUBIN NEGATIVE (NEGATIVE); URINE BLOOD LARGE (NEGATIVE); URINE GLUCOSE (UA) NEGATIVE (NEGATIVE); URINE KETONE NEGATIVE (NEGATIVE); URINE LEUKOCYTE ESTERASE SMALL Leu/uL (NEGATIVE); URINE PROTEIN 100 mg/dL (<30 mg/dL)
[2017-03-31 19:04] LABS: URINE APPEARANCE SL CLOUDY (CLEAR); URINE COLOR YELLOW (YELLOW)
[2017-03-31 19:06] LABS: URINE BACTERIA MOD (NEG); URINE RBC TNTC /hpf (0-2)
[2017-04-01] MEDS: Insulin Reg-MEDIUM-Coverage SC SCH ×4 (00:34→18:17)
[2017-04-01] MEDS: Phenytoin 100 mg/2 ml Inj IVP SCH ×4 (00:36→18:21)
[2017-04-01 05:24] LABS: ARTERIAL BLOOD GAS O2 CAPACITY 19.5 mL/dl (16-24); ARTERIAL BLOOD GAS O2 CONTENT 19.1 ML/dl (15-23); ARTERIAL BLOOD GAS PH 7.49 (7.35-7.45); ARTERIAL BLOOD HGB O2 SAT 95.8 % (95.0-98.0); CARBOXYHEMOGLOBIN 1.7 % (0.5-1.5); HHB 1.8 % (0-5); METHEMOGLOBIN 0.7 % (0.0-3.0)
[2017-04-01 06:43] LABS: ADD MANUAL DIFF? NO
[2017-04-01 07:04] LABS: BASO # 0.02 K/mm3 (0.0-2.0); BASO % 0.2 % (0.0-3.0); EOS # 0.4 (0.0-0.7); EOS % 3.4 % (1.5-5.0); GRAN # 7.53 (1.4-6.5); GRAN % 67.7 % (50.0-68.0); HEMATOCRIT 44.2 % (42.0-52.0); LYMPH # 1.8 (1.2-3.4); LYMPH % 16.5 % (22.0-35.0); MEAN CELL VOLUME 86.3 fL (80.0-105.0); MEAN CORPUSCULAR HEMOGLOBIN 27.5 pg (25.0-35.0); MEAN CORPUSCULAR HGB CONC 31.9 g/dl (31.0-37.0); MEAN PLATELET VOLUME 11.7 fl (7.0-11.0); MONO # 1.4 (0.1-0.6); MONO % 12.2 % (1.0-6.0); PLATELET COUNT 172 10^3/uL (120.0-450.0); RED CELL DISTRIBUTION WIDTH 15.5 % (11.5-14.5); WHITE BLOOD COUNT 11.1 10^3/ul (4.5-11.0)
[2017-04-01 07:15] LABS: INR 1.13 (0.93-1.08); PARTIAL THROMBOPLASTIN TIME 27.5 Seconds (23.7-30.8)
[2017-04-01] MEDS: Albuterol-Ipratrop 3 mg / 0.5 (3 ml) UD IH SCH ×2 (07:16→19:50)
[2017-04-01] MEDS: Budesonide 0.5 mg/2 ml Inhal Susp UD IH SCH ×2 (07:16→19:50)
--- NOTE | 2017-04-01 07:35 | CP.PCM.PN ---
<Naty Vallejo - Last Filed: 04/01/17 10:18> Subjective - Date & Time of Evaluation Date of Evaluation: 04/01/17 Time of Evaluation: 07:31 - Subjective Subjective: ICU Progress Note Patient seen and examined at bedside. There were no acute overnight events. Patient is withdrawing to pain stimuli. He is intubated and off sedation. Patient noted to be passing gas, but no BM. ROS could not be obtained. Objective - Vital Signs/Intake and Output Vital Signs (last 24 hours): Temp Pulse Resp BP Pulse Ox 100.0 F H 75 30 H 169/90 H 96 04/01/17 06:15 04/01/17 06:15 04/01/17 07:22 04/01/17 06:01 04/01/17 07:22 - Medications Medications: Current Medications Albuterol/Ipratropium (Duoneb 3 Mg/0.5 Mg (3 Ml) Ud) 3 ml IH [id number] [facility] Last Admin: 04/01/17 07:16 Dose: 3 ml Budesonide (Pulmicort Respules) 0.5 mg IH [id number] [facility] Last Admin: 04/01/17 07:16 Dose: 0.5 mg Heparin Sodium (Porcine) (Heparin) 5,000 units SC Q8 [facility] PRN Reason: Protocol Last Admin: 04/01/17 06:34 Dose: 5,000 units Hydralazine HCl (Apresoline) 25 mg PO QID [facility] Last Admin: 03/31/17 22:37 Dose: 25 mg Meropenem 1g/NS 100mL IVPB (Meropenem 1g/Ns 100ml Ivpb) 1 gm in 100 mls @ 100 mls/hr IVPB Q12 [facility] PRN Reason: Protocol Stop: 04/05/17 22:01 Last Admin: 03/31/17 22:53 Dose: 100 mls/hr Levetiracetam 1,000 mg/ Sodium (Chloride) 110 mls @ 460 mls/hr IV Q12 [facility] Last Admin: 03/31/17 22:29 Dose: 460 mls/hr Linezolid (Zyvox 600mg/300ml D5w) 600 mg in 300 mls @ 200 mls/hr IVPB Q12 [facility] PRN Reason: Protocol Stop: 04/06/17 10:01 Last Admin: 03/31/17 22:53 Dose: 200 mls/hr Insulin Human Regular (Humulin R Med) 0 units SC Q6 [facility] PRN Reason: Protocol Last Admin: 04/01/17 06:27 Dose: Not Given Isosorbide Mononitrate (Ismo) 10 mg PO 0800,1500 [facility] Last Admin: 03/31/17 15:54 Dose: 10 mg Lorazepam (Ativan) 1 mg IVP Q6H PRN; Protocol PRN Reason: Seizure activity Last Admin: 03/28/17 08:00 Dose: 1 mg Metoprolol Tartrate (Lopressor) 25 mg PO BRKDIN [facility] Last Admin: 03/31/17 17:19 Dose: 25 mg Pantoprazole Sodium (Protonix Inj) 40 mg IVP DAILY [facility] Last Admin: 03/31/17 09:33 Dose: 40 mg Phenytoin (Dilantin) 100 mg IVP Q6H [facility] Last Admin: 04/01/17 06:33 Dose: 100 mg Polyethylene Glycol (Miralax) 17 gm PO BID [facility] Last Admin: 03/31/17 17:19 Dose: 17 gm Ramipril (Altace) 2.5 mg PO DAILY [facility] Last Admin: 03/31/17 09:33 Dose: 2.5 mg - Labs Labs: 04/01/17 06:35 03/31/17 05:30 PT 12.2 Seconds (9.9-11.8) H 04/01/17 06:35 INR 1.13 (0.93-1.08) H 04/01/17 06:35 APTT 27.5 Seconds (23.7-30.8) 04/01/17 06:35 - Constitutional Appears: No Acute Distress - Head Exam Head Exam: ATRAUMATIC, NORMAL INSPECTION, NORMOCEPHALIC - Eye Exam Eye Exam: Normal appearance, PERRL Pupil Exam: PERRL - ENT Exam ENT Exam: Mucous Membranes Moist - Respiratory Exam Respiratory Exam: Rhonchi, NORMAL BREATHING PATTERN. absent: Rales, Wheezes - Cardiovascular Exam Cardiovascular Exam: REGULAR RHYTHM, +S1, +S2. absent: Gallop, Rubs, Murmur - GI/Abdominal Exam GI & Abdominal Exam: Soft, Normal Bowel Sounds. absent: Rigid, Tenderness, Mass , Rebound - Extremities Exam Extremities Exam: Normal Inspection. absent: Calf Tenderness, Pedal Edema - Neurological Exam Neurological Exam: CN II-XII Intact. absent: Alert, Awake Additional comments: Withdraw to pain stimuli in all 4 extremities. Brainstem reflexes intact. - Skin Skin Exam: Dry, Intact, Normal Color, Warm Assessment and Plan - Assessment and Plan (Free Text) Assessment: This is a 71Y M with PMH HTN, DM, HLD, CAD s/p 3 stents, COPD, ARIELLE s/p cardiac arrest with ROSC and anoxic encephalopathy. Hypothermia protocol was initiated upon admission and is now warmed up. Patient noted to have brain stem reflexes, but as per neurology he is in vegetative state. Plan: Neuro: Intubated - no sedation Pt in vegetative state, brain stem reflexes intact Neuro consulted- recs appreciated Keppra and Phenytoin - spoke with neurology who said will d/c antiseizure meds upon D/C Ativan prn Tylenol IV prn- Maintain normothermia Continue neurochecks CV: Continue BP meds and Maintain MAP >65 Cardio consulted- recs appreciated Resp: Maintain spO2>90% Aspiration precaution HOB elevated on PRVC Rate: 30, TV: 450, Fio2: 40 and PEEP of 10. - will try to wean as tolerated with PS and SBT Continue protective lung ventilation strategy GI: Now on Glucerna with goal of 60ml/hr Miralax for constipation /Neprho: AYE- now resolved Continue to monitor I&O Maintain euvolemia Will continue to monitor electrolytes and replace as needed Heme: Hgb stable Continue to monitor CBC ID: Leukocytosis improved ID consulted-recs appreciated On Merrem and Linezolid Endo: On ISS BGM ACHS Maintain euglycemia- between 140-180 GI ppx: Pepcid IVP DVT ppx: Heparin SC q8h Dispo: Palliative on board. is leaning towards trach and peg. Will consult surgery when decision is confirmed. case seen, discussed and reviewed with attending. Alton Vallejo PGY1 <Gualberto PHAN,Zuhair H - Last Filed: 04/01/17 16:29> Objective - Vital Signs/Intake and Output Vital Signs (last 24 hours): Temp Pulse Resp BP Pulse Ox 100.0 F H 75 30 H 136/79 96 04/01/17 06:15 04/01/17 14:18 04/01/17 07:22 04/01/17 14:18 04/01/17 07:22 - Medications Medications: Current Medications Albuterol/Ipratropium (Duoneb 3 Mg/0.5 Mg (3 Ml) Ud) 3 ml IH [id number] [facility] Last Admin: 04/01/17 07:16 Dose: 3 ml Budesonide (Pulmicort Respules) 0.5 mg IH [id number] [facility] Last Admin: 04/01/17 07:16 Dose: 0.5 mg Heparin Sodium (Porcine) (Heparin) 5,000 units SC Q8 [facility] PRN Reason: Protocol Last Admin: 04/01/17 14:18 Dose: 5,000 units Hydralazine HCl (Apresoline) 25 mg PO QID [facility] Last Admin: 04/01/17 14:18 Dose: 25 mg Meropenem 1g/NS 100mL IVPB (Meropenem 1g/Ns 100ml Ivpb) 1 gm in 100 mls @ 100 mls/hr IVPB Q12 [facility] PRN Reason: Protocol Stop: 04/05/17 22:01 Last Admin: 04/01/17 09:22 Dose: 100 mls/hr Levetiracetam 1,000 mg/ Sodium (Chloride) 110 mls @ 460 mls/hr IV Q12 [facility] Last Admin: 04/01/17 09:07 Dose: 460 mls/hr Linezolid (Zyvox 600mg/300ml D5w) 600 mg in 300 mls @ 200 mls/hr IVPB Q12 [facility] PRN Reason: Protocol Stop: 04/06/17 10:01 Last Admin: 04/01/17 09:21 Dose: 200 mls/hr Insulin Human Regular (Humulin R Med) 0 units SC Q6 [facility] PRN Reason: Protocol Last Admin: 04/01/17 12:38 Dose: 3 units Isosorbide Mononitrate (Ismo) 10 mg PO 0800,1500 [facility] Last Admin: 04/01/17 14:18 Dose: 10 mg Lorazepam (Ativan) 1 mg IVP Q6H PRN; Protocol PRN Reason: Seizure activity Last Admin: 03/28/17 08:00 Dose: 1 mg Metoprolol Tartrate (Lopressor) 25 mg PO BRKDIN [facility] Last Admin: 04/01/17 09:02 Dose: 25 mg Pantoprazole Sodium (Protonix Inj) 40 mg IVP DAILY [facility] Last Admin: 04/01/17 09:20 Dose: 40 mg Phenytoin (Dilantin) 100 mg IVP Q6H [facility] Last Admin: 04/01/17 12:43 Dose: 100 mg Polyethylene Glycol (Miralax) 17 gm PO BID [facility] Last Admin: 04/01/17 09:20 Dose: 17 gm Ramipril (Altace) 2.5 mg PO DAILY [facility] Last Admin: 04/01/17 09:19 Dose: 2.5 mg - Labs Labs: 04/01/17 06:35 04/01/17 06:35 PT 12.2 Seconds (9.9-11.8) H 04/01/17 06:35 INR 1.13 (0.93-1.08) H 04/01/17 06:35 APTT 27.5 Seconds (23.7-30.8) 04/01/17 06:35 Attending/Attestation - Attestation I have personally seen and examined this patient.: Yes I have fully participated in the care of the patient.: Yes I have reviewed all pertinent clinical information, including history, physical exam and plan: Yes Notes (Text): 04/01/17 16:26 71 y/o M s/p Cardiac arrest Currently with minimal neurological recovery. P.S trial x 2 hrs today . CN intact. Not following commands . Family decision on Trach and PEG placement vs comfort care measures . Surgery consulted tentatively for Tuesday OR. NGT feeds to continue. Empiric abx for elevated WBC to finish 7 day course. DVT p Heparin. Seizure P w/ keppra and Dilantin . cc time 45 min
[2017-04-01 07:38] LABS: ALB/GLOB RATIO 0.9 (1.1-1.8); ALKALINE PHOSPHATASE 104 U/L (38-133); ALT/SGPT 40 U/L (7-56); AST/SGOT 151 U/L (15-59); BILIRUBIN,TOTAL 0.9 mg/dL (0.2-1.3); BLOOD UREA NITROGEN 30 mg/dL (7-21); CALCIUM 9.3 mg/dL (8.4-10.5); CARBON DIOXIDE 28 mmol/L (21-33); CHLORIDE 107 mmol/L (98-107); GFR AFRICAN-AMERICAN > 60; GLUCOSE,RANDOM 136 mg/dL (70-110); POTASSIUM 3.6 mmol/L (3.6-5.0); SODIUM 141 mmol/L (132-148); TOTAL PROTEIN 6.8 g/dL (5.8-8.3)
--- NOTE | 2017-04-01 07:44 | PN ---
DATE: 04/01/2017(615am--710am) SUBJECTIVE: The patient remains on the ventilator. He remains very lethargic. He does open his eyes at times. There are no purposeful movements. PHYSICAL EXAMINATION: VITAL SIGNS: Temperature is 100.0, pulse 75, respirations 30/30, blood pressure 169/90. HEENT: Normocephalic, atraumatic. No JVD. CARDIOVASCULAR: Positive S1, S2. No S3. LUNGS: Decreased breath sounds at the bases. Minimal/less rhonchi. No wheezing. EXTREMITIES: Mild edema. No cyanosis, no clubbing. GASTROINTESTINAL: Abdomen is soft, nondistended. Bowel sounds are positive. SKIN: No acute rash. NEUROLOGIC: Limited at the present time. PERTINENT LABORATORY DATA: Chest x-ray was done this morning and reviewed. It is a very poor, underpenetrated film. I do not appreciate any significant change. There are no official results on the chart. Arterial blood gas was done on assist control of 30, tidal volume 450, FiO2 40%, PEEP of 10. Results are: pH 7.49, pCO2 of 38, pO2 of 90. IMPRESSION: 1. Ventricular fibrillation arrest, status post cardiopulmonary resuscitation. 2. Respiratory failure. 3. Coronary artery disease. 4. Chronic obstructive pulmonary disease. 5. Probable aspiration pneumonia. 6. Encephalopathy. PLAN: The patient remains in the ICU and on the ventilator. He remains very lethargic. He does open his eyes at times, but there are no purposeful movements. I did discuss the case with the night nurse at length. I also reviewed the chest x-ray from this morning. The x-ray is a very underpenetrated poor film. I do not appreciate any significant changes. We are awaiting official results. I have also reviewed the arterial blood gas. There is a mild alkalosis present ,with a decrease in alveolar arterial gradient. I did discuss the arterial blood gas with the medical administrative specialist. I suggested that the team might decrease the ventilatory rate. The patient remains on antibiotic therapy -- as per infectious disease. The low-grade temperatures persisting. However, the leukocytosis has almost completely resolved. Cardiology and neurologic inputs are noted. Input by Amanda Clay (palliative care) is also noted. The patient remains critically ill with a very guarded/poor overall prognosis. I will discuss the above with the entire ICU team in the next few moments. I will also discuss the above with Dr. Vargas later this morning. Sacha Hopkins MD cc: [phone] TT: 04/01/2017 07:44:12 Confirmation # [id number] Dictation # [id number] mn [place]
[2017-04-01] MEDS ORDERED: Potassium Chloride 20 mEq/15 ml LIQ UD PO STA (09:05)
[2017-04-01] MEDS: levETIRAcetam 1,000 MG in Sodium Chloride 0.9% 100 ML IV SCH ×2 (09:07→22:05)
[2017-04-01] MEDS: POLYETHYLENE GLYCOL 3350 17 GM/Dose PACKET PO SCH ×2 (09:20→18:20)
[2017-04-01] MEDS: Linezolid 600 mg in D5W 300 ml 600 MG/300 ML BAG IVPB SCH ×2 (09:21→21:13)
[2017-04-01] MEDS: Meropenem 1g/NS 100mL IVPB 1 GM/100 ML PIGGYBACK IVPB SCH ×2 (09:22→21:25)
--- NOTE | 2017-04-01 09:34 | CP.PCM.PN ---
<Krishna Kauffman - Last Filed: 04/01/17 18:51> Subjective - Date & Time of Evaluation Date of Evaluation: 04/01/17 Time of Evaluation: 09:31 - Subjective Subjective: Medicine progress note for Dr. Vargas/Dr. Escalante service - Krishna Kauffman PGY1 Patient seen and examined at bedside this morning. No acute overnight events reported this morning. Discussed case with ICU team. ROS limited due to patient status. Objective - Vital Signs/Intake and Output Vital Signs (last 24 hours): Temp Pulse Resp BP Pulse Ox 100.0 F H 76 30 H 167/76 H 96 04/01/17 06:15 04/01/17 09:02 04/01/17 07:22 04/01/17 09:06 04/01/17 07:22 - Medications Medications: Current Medications Albuterol/Ipratropium (Duoneb 3 Mg/0.5 Mg (3 Ml) Ud) 3 ml IH [id number] [facility] Last Admin: 04/01/17 07:16 Dose: 3 ml Budesonide (Pulmicort Respules) 0.5 mg IH [id number] [facility] Last Admin: 04/01/17 07:16 Dose: 0.5 mg Heparin Sodium (Porcine) (Heparin) 5,000 units SC Q8 [facility] PRN Reason: Protocol Last Admin: 04/01/17 06:34 Dose: 5,000 units Hydralazine HCl (Apresoline) 25 mg PO QID [facility] Last Admin: 03/31/17 22:37 Dose: 25 mg Meropenem 1g/NS 100mL IVPB (Meropenem 1g/Ns 100ml Ivpb) 1 gm in 100 mls @ 100 mls/hr IVPB Q12 [facility] PRN Reason: Protocol Stop: 04/05/17 22:01 Last Admin: 03/31/17 22:53 Dose: 100 mls/hr Levetiracetam 1,000 mg/ Sodium (Chloride) 110 mls @ 460 mls/hr IV Q12 [facility] Last Admin: 04/01/17 09:07 Dose: 460 mls/hr Linezolid (Zyvox 600mg/300ml D5w) 600 mg in 300 mls @ 200 mls/hr IVPB Q12 [facility] PRN Reason: Protocol Stop: 04/06/17 10:01 Last Admin: 03/31/17 22:53 Dose: 200 mls/hr Insulin Human Regular (Humulin R Med) 0 units SC Q6 [facility] PRN Reason: Protocol Last Admin: 04/01/17 06:27 Dose: Not Given Isosorbide Mononitrate (Ismo) 10 mg PO 0800,1500 [facility] Last Admin: 04/01/17 09:06 Dose: 10 mg Lorazepam (Ativan) 1 mg IVP Q6H PRN; Protocol PRN Reason: Seizure activity Last Admin: 03/28/17 08:00 Dose: 1 mg Metoprolol Tartrate (Lopressor) 25 mg PO BRKDIN [facility] Last Admin: 04/01/17 09:02 Dose: 25 mg Pantoprazole Sodium (Protonix Inj) 40 mg IVP DAILY [facility] Last Admin: 03/31/17 09:33 Dose: 40 mg Phenytoin (Dilantin) 100 mg IVP Q6H [facility] Last Admin: 04/01/17 06:33 Dose: 100 mg Polyethylene Glycol (Miralax) 17 gm PO BID [facility] Last Admin: 03/31/17 17:19 Dose: 17 gm Ramipril (Altace) 2.5 mg PO DAILY [facility] Last Admin: 03/31/17 09:33 Dose: 2.5 mg - Labs Labs: 04/01/17 06:35 04/01/17 06:35 PT 12.2 Seconds (9.9-11.8) H 04/01/17 06:35 INR 1.13 (0.93-1.08) H 04/01/17 06:35 APTT 27.5 Seconds (23.7-30.8) 04/01/17 06:35 - Constitutional Appears: Chronically Ill - Head Exam Head Exam: ATRAUMATIC, NORMOCEPHALIC - ENT Exam ENT Exam: Mucous Membranes Moist - Cardiovascular Exam Cardiovascular Exam: RRR, +S1, +S2. absent: Gallop, JVD, Rubs, Murmur - GI/Abdominal Exam GI & Abdominal Exam: Soft. absent: Distended, Firm, Guarding, Rigid, Tenderness - Extremities Exam Extremities Exam: Pedal Edema - Neurological Exam Neurological Exam: absent: Alert, Awake, Normal Gait, Oriented x3 - Skin Skin Exam: Dry, Intact, Normal Color, Warm Assessment and Plan - Assessment and Plan (Free Text) Plan: 71yo male with history of ARIELLE, HTN, DMT2, HLD, CAD s/p 3 stents, COPD presents via EMS s/p cardiac arrest with ROSC 1. Cardiac arrest 2. Anoxic encephalopathy 3. Cardiogenic edema 4. Acute kidney injury 5. CAD 6. DM type 2 7. ARIELLE 8. HLD 9. COPD -Patient currently intubated on PRVC 450/30/40/10 -EEG results revealed presence of bursts of myoclonic activity followed by periods of slowing consistent with underlying anoxic encephalopathy -Repeat EEG showed wave bursts of myoclonic activity which correlates with poor prognosis -Continue with neurochecks -CXR reviewed and revealed pulmonary edema with right greater than left -MRI Brain reviewed; revealed extra-axial mass of ~2cm consistent with meningioma; see full report -Brain flow scan non-diagnostic due to poor technique -Echocardiogram revealed LVEF 74% however this was on dobutamine drip -CT head reviewed and revealed 3cm mass in the left frontal lobe with vasogenic edema -Patient started on enteral feeds with jevity @60cc/hr -Continue with ramipril and hydralazine for afterload reduction -Continue with imdur for preload reduction -Acute kidney injury appears to be resolving; Continue to monitor I's and O's -Hypothermia protocol initiated per ICU and cardiology recommendations -Continue with keppra and phenytoin per neurology recommendations -Continue with meropenem and vancomycin per ID recommendations -Continue with ISS; fingersticks ACHS -Blood and urine cultures negative; procalcitonin was elevated -Continue with meropenem and linezolid per ID recommendations -Protonix/Heparin for GI/DVT prophylaxis -Neurology following - Dr. Mills -Cardiology following - Dr. Luu -Pulmonology following - Dr. Hopkins -ID following - Dr. Watson -IR consulted and PICC line placed - Dr. Muñoz -Prognosis guarded -Another extensive discussion regarding goals of care took place with patient's today; Family appears divided, however at this time plan is for trach/peg -Patient to discuss with manager case management regarding LTAC placement Patient seen and case discussed with attending, Dr. Escalante <Td Escalante - Last Filed: 04/01/17 18:59> Objective - Vital Signs/Intake and Output Vital Signs (last 24 hours): Temp Pulse Resp BP Pulse Ox 100.0 F H 66 30 H 148/67 96 04/01/17 06:15 04/01/17 18:21 04/01/17 07:22 04/01/17 18:21 04/01/17 07:22 - Medications Medications: Current Medications Albuterol/Ipratropium (Duoneb 3 Mg/0.5 Mg (3 Ml) Ud) 3 ml IH [id number] [facility] Last Admin: 04/01/17 07:16 Dose: 3 ml Budesonide (Pulmicort Respules) 0.5 mg IH [id number] [facility] Last Admin: 04/01/17 07:16 Dose: 0.5 mg Heparin Sodium (Porcine) (Heparin) 5,000 units SC Q8 [facility] PRN Reason: Protocol Last Admin: 04/01/17 14:18 Dose: 5,000 units Hydralazine HCl (Apresoline) 25 mg PO QID [facility] Last Admin: 04/01/17 18:21 Dose: 25 mg Meropenem 1g/NS 100mL IVPB (Meropenem 1g/Ns 100ml Ivpb) 1 gm in 100 mls @ 100 mls/hr IVPB Q12 [facility] PRN Reason: Protocol Stop: 04/05/17 22:01 Last Admin: 04/01/17 09:22 Dose: 100 mls/hr Levetiracetam 1,000 mg/ Sodium (Chloride) 110 mls @ 460 mls/hr IV Q12 [facility] Last Admin: 04/01/17 09:07 Dose: 460 mls/hr Linezolid (Zyvox 600mg/300ml D5w) 600 mg in 300 mls @ 200 mls/hr IVPB Q12 [facility] PRN Reason: Protocol Stop: 04/06/17 10:01 Last Admin: 04/01/17 09:21 Dose: 200 mls/hr Insulin Human Regular (Humulin R Med) 0 units SC Q6 [facility] PRN Reason: Protocol Last Admin: 04/01/17 18:17 Dose: 1 units Isosorbide Mononitrate (Ismo) 10 mg PO 0800,1500 [facility] Last Admin: 04/01/17 14:18 Dose: 10 mg Lorazepam (Ativan) 1 mg IVP Q6H PRN; Protocol PRN Reason: Seizure activity Last Admin: 03/28/17 08:00 Dose: 1 mg Metoprolol Tartrate (Lopressor) 25 mg PO BRKDIN [facility] Last Admin: 04/01/17 18:20 Dose: 25 mg Pantoprazole Sodium (Protonix Inj) 40 mg IVP DAILY [facility] Last Admin: 04/01/17 09:20 Dose: 40 mg Phenytoin (Dilantin) 100 mg IVP Q6H [facility] Last Admin: 04/01/17 18:21 Dose: 100 mg Polyethylene Glycol (Miralax) 17 gm PO BID [facility] Last Admin: 04/01/17 18:20 Dose: 17 gm Ramipril (Altace) 2.5 mg PO DAILY [facility] Last Admin: 04/01/17 09:19 Dose: 2.5 mg - Labs Labs: 04/01/17 06:35 04/01/17 06:35 PT 12.2 Seconds (9.9-11.8) H 04/01/17 06:35 INR 1.13 (0.93-1.08) H 04/01/17 06:35 APTT 27.5 Seconds (23.7-30.8) 04/01/17 06:35 Attending/Attestation - Attestation I have personally seen and examined this patient.: Yes I have fully participated in the care of the patient.: Yes I have reviewed all pertinent clinical information, including history, physical exam and plan: Yes Notes (Text): 04/01/17 18:59 Medical record note made by the resident after discussion with my direction and input after the patient was personally seen and examined by me. I have reviewed the chart and agree that the record accurately reflects by personal performance of the history, physical exam, data review, and medical decision-making, in the course for the patient. I have also personally directed the plan of care.
--- NOTE | 2017-04-01 10:08 | PN ---
DATE: 04/01/2017 REASON FOR CONSULTATION: Status post cardiac arrest, CPR, intubated. Possible anoxic encephalopathy, 3 cm mass in the brain. no VT, off Dobutrex. BRIEF CLINICAL HISTORY: A 71-year-old male with a past medical history significant for COPD, on CPAP, history of coronary artery disease, multiple stents, who was in the bathroom tub, suddenly collapsed. Ambulance called. The patient had VT/ V Fib, CPR done, intubated, possible anoxic encephalopathy. Initially, the patient had some movement. Yesterday, had arrhythmia, off Dobutrex, still being intubated, is spontaneously moving his lower leg. PHYSICAL EXAMINATION: GENERAL: Comatose: VITAL SIGNS: Temperature 100.0, pulse 75, blood pressure 145/60. HEENT: PERRLA. Extraocular muscles intact. NECK: Supple. No carotid bruits. No thyromegaly. CHEST: Clear to auscultation. HEART: S1, S2 regular. ABDOMEN: Soft. EXTREMITIES: Clubbing and cyanosis negative. LABORATORY DATA: Blood workup: Has WBC 11.1, hemoglobin 14.1, platelet count 172. Sodium 144, potassium 3.6, chloride 107, carbon dioxide.28, anion gap of 15, BUN 30, creatinine 1.3. IMPRESSION: Possible anoxic encephalopathy. Ventricular fibrillation arrest, status post cardiorespiratory resuscitation, respiratory failure, intubated, chronic obstructive pulmonary disease, spontaneous movement of the lower extremity, both upper extremities moving like decerebrate, not responding to verbal stimuli, deep comatose. Low-grade fever, rule out aspiration pneumonia. No evidence of further arrhythmia or ventricular fibrillation noted, off Dobutrex. History of coronary artery disease, history of multiple stents in the past. Not a candidate for catheterization lab invasive procedure. Initial CAT scan shows 3 cm mass in the brain with vasogenic edema. MRI shows mass most consistent with meningioma. As mentioned, anoxic encephalopathy. Overall , the patient's condition is poor. Prognosis is extremely guarded. Brain flow study nondiagnostic based on the technique. Repeat study may be indicated. RECOMMENDATION: Continue support, off Dobutrex. Continue phenytoin for seizure disorder, Keppra. Continue ramipril, continue hydralazine p.r.n. Continue DVT prophylaxis. Monitor electrolytes and supplement as needed. Antibiotic, supportive care. We will follow with you. Thank you, Dr. Vargas, for providing the opportunity in taking care of the patient. Continue NG feeding. We will supplement potassium. Paulette Luu MD cc: [phone] TT: 04/01/2017 10:08:09 Confirmation # [id number] Dictation # [id number] elissa COULTER
--- NOTE | 2017-04-01 10:34 | RAD ---
HISTORY: f/u COMPARISON: 03/31/2017 FINDINGS: LUNGS: No active pulmonary disease. PLEURA: No significant pleural effusion identified, no pneumothorax apparent. CARDIOVASCULAR: Mild cardiomegaly. Mild vascular congestion. Endotracheal and nasogastric tube in satisfactory position OSSEOUS STRUCTURES: No significant abnormalities. VISUALIZED UPPER ABDOMEN: Normal. OTHER FINDINGS: None. IMPRESSION: Mild cardiomegaly. Mild vascular congestion. Endotracheal and nasogastric tube in satisfactory position
--- NOTE | 2017-04-01 13:53 | CP.PCM.PCO ---
Physician Communication Note - Physician Communication Note Physician Communication Note: pt will need LTAC if thery want peg and trach. c/ w sz meds. reconsult prn
--- NOTE | 2017-04-01 17:03 | CP.PCM.PN ---
Subjective - Date & Time of Evaluation Date of Evaluation: 04/01/17 Time of Evaluation: 09:20 - Subjective Subjective: Patient continues to be on the ventilator, still with low grade fevers. Objective - Vital Signs/Intake and Output Vital Signs (last 24 hours): Temp Pulse Resp BP Pulse Ox 100.2 F H 67 30 H 128/71 99 03/31/17 19:45 03/31/17 22:37 03/31/17 07:14 03/31/17 22:37 03/31/17 19:45 Intake and Output: 03/31/17 04/01/17 18:59 06:59 Intake Total 1774 Output Total 1005 Balance 769 - Medications Medications: Current Medications Albuterol/Ipratropium (Duoneb 3 Mg/0.5 Mg (3 Ml) Ud) 3 ml IH [id number] [facility] Budesonide (Pulmicort Respules) 0.5 mg IH [id number] [facility] Last Admin: 03/31/17 20:11 Dose: 0.5 mg Heparin Sodium (Porcine) (Heparin) 5,000 units SC Q8 [facility] PRN Reason: Protocol Last Admin: 03/31/17 22:37 Dose: 5,000 units Hydralazine HCl (Apresoline) 25 mg PO QID [facility] Last Admin: 03/31/17 22:37 Dose: 25 mg Meropenem 1g/NS 100mL IVPB (Meropenem 1g/Ns 100ml Ivpb) 1 gm in 100 mls @ 100 mls/hr IVPB Q12 [facility] PRN Reason: Protocol Stop: 04/05/17 22:01 Last Admin: 03/31/17 22:53 Dose: 100 mls/hr Levetiracetam 1,000 mg/ Sodium (Chloride) 110 mls @ 460 mls/hr IV Q12 [facility] Last Admin: 03/31/17 22:29 Dose: 460 mls/hr Linezolid (Zyvox 600mg/300ml D5w) 600 mg in 300 mls @ 200 mls/hr IVPB Q12 [facility] PRN Reason: Protocol Stop: 04/06/17 10:01 Last Admin: 03/31/17 22:53 Dose: 200 mls/hr Insulin Human Regular (Humulin R Med) 0 units SC Q6 [facility] PRN Reason: Protocol Last Admin: 04/01/17 00:34 Dose: Not Given Isosorbide Mononitrate (Ismo) 10 mg PO 0800,1500 [facility] Last Admin: 03/31/17 15:54 Dose: 10 mg Lorazepam (Ativan) 1 mg IVP Q6H PRN; Protocol PRN Reason: Seizure activity Last Admin: 03/28/17 08:00 Dose: 1 mg Metoprolol Tartrate (Lopressor) 25 mg PO BRKDIN [facility] Last Admin: 03/31/17 17:19 Dose: 25 mg Pantoprazole Sodium (Protonix Inj) 40 mg IVP DAILY [facility] Last Admin: 03/31/17 09:33 Dose: 40 mg Phenytoin (Dilantin) 100 mg IVP Q6H [facility] Last Admin: 04/01/17 00:36 Dose: 100 mg Polyethylene Glycol (Miralax) 17 gm PO BID [facility] Last Admin: 03/31/17 17:19 Dose: 17 gm Ramipril (Altace) 2.5 mg PO DAILY [facility] Last Admin: 03/31/17 09:33 Dose: 2.5 mg - Labs Labs: 03/31/17 05:30 03/31/17 05:30 PT 13.5 Seconds (9.9-11.8) H 03/31/17 05:30 INR 1.25 (0.93-1.08) H 03/31/17 05:30 APTT 30.5 Seconds (23.7-30.8) 03/31/17 05:30 - Constitutional Appears: Other (Intubated and sedated) - Head Exam Head Exam: NORMAL INSPECTION - ENT Exam Additional comments: ET tube in place - Neck Exam Neck Exam: absent: Meningismus - Cardiovascular Exam Cardiovascular Exam: +S1, +S2 - GI/Abdominal Exam GI & Abdominal Exam: Soft. absent: Tenderness Assessment and Plan - Assessment and Plan (Free Text) Plan: Assessment Systemic Inflammatory Response Syndrome (leukocytosis and hypothermia) probably due to cardiorespiratory arrest, R/O acute coronary syndrome; sepsis due to probable aspiration pneumonia acute on chronic renal failure CAD S/P PCI chronic CHF DM HTN hyothyroidism history of right arm surgery Plan continue Merrem (day 5) and Zyvox (day 3) since the patient developed fever overnight - repeat blood cx are negative; CXR shows bilateral infiltrates PCT is elevated because of the renal failure; reviewed Cardiology and Pulmonary recommendations will continue to monitor clinically Patient continues to be in critical condition and overall prognosis is poor discussed EEG findings with Neurology and it is compatible with anoxic brain injury; meningioma on MRI is an incidental finding
--- NOTE | 2017-04-01 18:11 | CP.PCM.PN ---
Subjective - Date & Time of Evaluation Date of Evaluation: 04/01/17 Time of Evaluation: 17:00 - Subjective Subjective: Intubated,ventilator dependent, unresponsive. Objective - Vital Signs/Intake and Output Vital Signs (last 24 hours): Temp Pulse Resp BP Pulse Ox 100.0 F H 75 30 H 136/79 96 04/01/17 06:15 04/01/17 14:18 04/01/17 07:22 04/01/17 14:18 04/01/17 07:22 - Medications Medications: Current Medications Albuterol/Ipratropium (Duoneb 3 Mg/0.5 Mg (3 Ml) Ud) 3 ml IH [id number] [facility] Last Admin: 04/01/17 07:16 Dose: 3 ml Budesonide (Pulmicort Respules) 0.5 mg IH [id number] [facility] Last Admin: 04/01/17 07:16 Dose: 0.5 mg Heparin Sodium (Porcine) (Heparin) 5,000 units SC Q8 [facility] PRN Reason: Protocol Last Admin: 04/01/17 14:18 Dose: 5,000 units Hydralazine HCl (Apresoline) 25 mg PO QID [facility] Last Admin: 04/01/17 14:18 Dose: 25 mg Meropenem 1g/NS 100mL IVPB (Meropenem 1g/Ns 100ml Ivpb) 1 gm in 100 mls @ 100 mls/hr IVPB Q12 [facility] PRN Reason: Protocol Stop: 04/05/17 22:01 Last Admin: 04/01/17 09:22 Dose: 100 mls/hr Levetiracetam 1,000 mg/ Sodium (Chloride) 110 mls @ 460 mls/hr IV Q12 [facility] Last Admin: 04/01/17 09:07 Dose: 460 mls/hr Linezolid (Zyvox 600mg/300ml D5w) 600 mg in 300 mls @ 200 mls/hr IVPB Q12 [facility] PRN Reason: Protocol Stop: 04/06/17 10:01 Last Admin: 04/01/17 09:21 Dose: 200 mls/hr Insulin Human Regular (Humulin R Med) 0 units SC Q6 [facility] PRN Reason: Protocol Last Admin: 04/01/17 12:38 Dose: 3 units Isosorbide Mononitrate (Ismo) 10 mg PO 0800,1500 [facility] Last Admin: 04/01/17 14:18 Dose: 10 mg Lorazepam (Ativan) 1 mg IVP Q6H PRN; Protocol PRN Reason: Seizure activity Last Admin: 03/28/17 08:00 Dose: 1 mg Metoprolol Tartrate (Lopressor) 25 mg PO BRKDIN [facility] Last Admin: 04/01/17 09:02 Dose: 25 mg Pantoprazole Sodium (Protonix Inj) 40 mg IVP DAILY [facility] Last Admin: 04/01/17 09:20 Dose: 40 mg Phenytoin (Dilantin) 100 mg IVP Q6H [facility] Last Admin: 04/01/17 12:43 Dose: 100 mg Polyethylene Glycol (Miralax) 17 gm PO BID [facility] Last Admin: 04/01/17 09:20 Dose: 17 gm Ramipril (Altace) 2.5 mg PO DAILY [facility] Last Admin: 04/01/17 09:19 Dose: 2.5 mg - Labs Labs: 04/01/17 06:35 04/01/17 06:35 PT 12.2 Seconds (9.9-11.8) H 04/01/17 06:35 INR 1.13 (0.93-1.08) H 04/01/17 06:35 APTT 27.5 Seconds (23.7-30.8) 04/01/17 06:35 - Constitutional Appears: Chronically Ill - Eye Exam Eye Exam: PERRL - ENT Exam ENT Exam: Mucous Membranes Moist - Respiratory Exam Respiratory Exam: Clear to Ausculation Bilateral, NORMAL BREATHING PATTERN - Cardiovascular Exam Cardiovascular Exam: REGULAR RHYTHM, +S1, +S2 - GI/Abdominal Exam GI & Abdominal Exam: Soft, Normal Bowel Sounds - Skin Skin Exam: Dry, Pallor Assessment and Plan - Assessment and Plan (Free Text) Assessment: 71 year old male s/p cardiac arrest, anoxic encephalopathy intubated off sedation, withdraws from painful stimuli. 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 Patient's at bedside. 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 states her children are divided over whether to do these procedures or to withdraw ventilator support in order to allow for natural . I explained that he is likely to have intermediate sequelae of these procedures such as infection, skin break down, aspiration,etc. She understands that at some point she may still need to consider DNR/ DNH /terminal wean in the future. She states that she understands the possible outcomes but is emotionally not ready to stop life support at this time. She was seen by web content & social media manager in order to discuss options for LTAC placement. Psychosocial support given. Time spent in goals of care discussion, 40 minutes Plan: Will assist with establishing goals of care
[2017-04-02] MEDS: Insulin Reg-MEDIUM-Coverage SC SCH ×4 (00:45→18:18)
[2017-04-02] MEDS: Phenytoin 100 mg/2 ml Inj IVP SCH ×4 (00:49→18:20)
[2017-04-02 06:06] LABS: ADD MANUAL DIFF? NO
[2017-04-02 06:20] LABS: ALKALINE PHOSPHATASE 105 U/L (38-133); ALT/SGPT 33 U/L (7-56); AST/SGOT 105 U/L (15-59); BASO # 0.01 K/mm3 (0.0-2.0); BASO % 0.1 % (0.0-3.0); BILIRUBIN,TOTAL 0.9 mg/dL (0.2-1.3); BLOOD UREA NITROGEN 32 mg/dL (7-21); CALCIUM 9.2 mg/dL (8.4-10.5); CARBON DIOXIDE 26 mmol/L (21-33); CHLORIDE 107 mmol/L (98-107); EOS # 0.4 (0.0-0.7); EOS % 3.2 % (1.5-5.0); GFR AFRICAN-AMERICAN > 60; GLUCOSE,RANDOM 153 mg/dL (70-110); GRAN # 9.39 (1.4-6.5); GRAN % 69.3 % (50.0-68.0); LYMPH # 2.1 (1.2-3.4); LYMPH % 15.4 % (22.0-35.0); MEAN CELL VOLUME 86.8 fL (80.0-105.0); MEAN CORPUSCULAR HEMOGLOBIN 27.6 pg (25.0-35.0); MEAN CORPUSCULAR HGB CONC 31.8 g/dl (31.0-37.0); MEAN PLATELET VOLUME 11.4 fl (7.0-11.0); MONO # 1.6 (0.1-0.6); PLATELET COUNT 176 10^3/uL (120.0-450.0); POTASSIUM 4.3 mmol/L (3.6-5.0); RED CELL DISTRIBUTION WIDTH 15.5 % (11.5-14.5); SODIUM 141 mmol/L (132-148); TOTAL PROTEIN 6.2 g/dL (5.8-8.3); WHITE BLOOD COUNT 13.6 10^3/ul (4.5-11.0)
[2017-04-02 06:28] LABS: ARTERIAL BLOOD GAS HCO3 27.8 mmol/L (21-28); ARTERIAL BLOOD GAS O2 CAPACITY 17.9 mL/dl (16-24); ARTERIAL BLOOD GAS O2 CONTENT 17.7 ML/dl (15-23); ARTERIAL BLOOD GAS PH 7.45 (7.35-7.45); ARTERIAL BLOOD HGB O2 SAT 96.3 % (95.0-98.0); CARBOXYHEMOGLOBIN 2.3 % (0.5-1.5); HHB 0.9 % (0-5); METHEMOGLOBIN 0.6 % (0.0-3.0)
[2017-04-02] MEDS: Albuterol-Ipratrop 3 mg / 0.5 (3 ml) UD IH SCH ×2 (07:47→19:52)
[2017-04-02] MEDS: Budesonide 0.5 mg/2 ml Inhal Susp UD IH SCH ×2 (07:47→19:51)
[2017-04-02] MEDS: levETIRAcetam 1,000 MG in Sodium Chloride 0.9% 100 ML IV SCH ×2 (10:13→21:47)
[2017-04-02] MEDS: Meropenem 1g/NS 100mL IVPB 1 GM/100 ML PIGGYBACK IVPB SCH ×2 (10:14→22:12)
[2017-04-02] MEDS: POLYETHYLENE GLYCOL 3350 17 GM/Dose PACKET PO SCH ×2 (10:16→18:20)
[2017-04-02] MEDS: Linezolid 600 mg in D5W 300 ml 600 MG/300 ML BAG IVPB SCH ×2 (10:17→22:12)
--- NOTE | 2017-04-02 10:25 | CP.CCUPN ---
CCU Subjective - Physician Review Events Since Last Encounter (Free Text): 04/02/17 10:23 71 y/o M w/ Out of hospital cardiac arrest Post hypothermia protocol had some neurological recovery. Currently on PS trial and daily SBT x 2 hrs. No meaningful neurological recovery, not following commands or speaking. Plan for family to decide about Trach+ PEG for Tuesday vs comfort care withdrawl. Seizure P w/ Keppra and dilantin w/ neurology following Continue tube feeds Empiric abx for low grade temp per ID , cx negative x 7 days treatment. dvt p PPi cc time 65 min CCU Objective - Vital Signs / Intake & Output Vital Signs (Last 4 hours): Vital Signs Temp Pulse BP 04/02/17 10:15 109/57 L 04/02/17 08:49 133/64 04/02/17 08:01 97.2 F L 73 133/64 04/02/17 08:00 97.2 F L 66 04/02/17 07:01 98.4 F 84 160/53 H 04/02/17 07:00 98.4 F 78 Intake and Output (Last 8hrs): Intake & Output 04/01/17 04/02/17 04/02/17 22:59 06:59 14:59 Intake Total 1820 1520 Output Total 1100 900 Balance 720 620 Intake: IV 500 400 Left Forearm 0 0 Left Upper arm 500 400 Tube Feeding 720 720 Other 600 400 Output: Gastric Amount 0 Nares 0 Urine 1100 900 Urethral (Lo) 1100 900 Stool 0 0 Other: Voiding Method Indwelling Catheter Indwelling Catheter - Physical Exam Head: Positive for: Atraumatic, Normocephalic Pupils: Positive for: Other (Fixed and dilated) Extroacular Muscles: Positive for: Other (no corneal reflex) Conjunctiva: Positive for: Normal Respiratory/Chest: Positive for: Decreased Breath Sounds. Negative for: Respiratory Distress, Accessory Muscle Use Cardiovascular: Positive for: Regular Rate and Rhythm, Normal S1, S2. Negative for: Murmurs Upper Extremity: Positive for: Normal Inspection. Negative for: Cyanosis, Edema Lower Extremity: Positive for: Edema (+2 edema bilaterally) Neurological: Positive for: Other (Patient is unresponsive. Unable to test sensation coordination gait and stance) Skin: Positive for: Warm, Dry, Normal Color. Negative for: Rashes Psychiatric: Positive for: Other (Unresponsive to verbal or painful stimuli) - Medications Active Medications: Active Medications Generic Name Dose Route Start Last Admin Trade Name Freq PRN Reason Stop Dose Admin Albuterol/Ipratropium 3 ml 03/31/17 20:17 04/02/17 07:47 Duoneb 3 Mg/0.5 Mg (3 Ml) Ud IH 3 ml [id number] [facility] Administration Budesonide 0.5 mg 03/28/17 08:00 04/02/17 07:47 Pulmicort Respules IH 0.5 mg [id number] [facility] Administration Heparin Sodium (Porcine) 5,000 units 03/28/17 14:00 04/02/17 06:21 Heparin SC 5,000 units Q8 [facility] Administration Protocol Hydralazine HCl 25 mg 03/30/17 14:00 04/02/17 10:15 Apresoline PO Not Given QID [facility] Meropenem 1g/NS 100mL IVPB 1 gm in 100 mls @ 100 mls/hr 03/27/17 22:00 10:14 Meropenem 1g/Ns 100ml Ivpb IVPB 04/05/17 22:01 100 mls/hr Q12 [facility] Administration Protocol Levetiracetam 1,000 mg/ Sodium 110 mls @ 460 mls/hr 03/28/17 12:00 04/02/17 10:13 Chloride IV 460 mls/hr Q12 [facility] Administration Linezolid 600 mg in 300 mls @ 200 mls/hr 03/30/17 10:00 04/02/17 10:17 Zyvox 600mg/300ml D5w IVPB 04/06/17 10:01 200 mls/hr Q12 [facility] Administration Protocol Insulin Human Regular 0 units 03/29/17 07:45 04/02/17 06:19 Humulin R Med SC Not Given Q6 [facility] Protocol Isosorbide Mononitrate 10 mg 03/30/17 15:00 04/02/17 08:49 Ismo PO 10 mg 0800,1500 [facility] Administration Lorazepam 1 mg 03/27/17 19:48 03/28/17 08:00 Ativan IVP 1 mg Q6H PRN Administration Seizure activity Protocol Metoprolol Tartrate 25 mg 03/29/17 08:45 04/02/17 08:49 Lopressor PO 25 mg BRKDIN [facility] Administration Pantoprazole Sodium 40 mg 03/28/17 10:00 04/01/17 09:20 Protonix Inj IVP 40 mg DAILY [facility] Administration Phenytoin 100 mg 03/29/17 12:45 04/02/17 06:22 Dilantin IVP 100 mg Q6H [facility] Administration Polyethylene Glycol 17 gm 03/31/17 18:00 04/02/17 10:16 Miralax PO 17 gm BID [facility] Administration Ramipril 2.5 mg 03/30/17 10:45 04/02/17 10:15 Altace PO Not Given DAILY [facility] - Patient Studies Lab Studies: Microbiology Studies 03/30/17 14:20 Blood Culture - Preliminary Blood-Venous NO GROWTH AFTER 48 HOURS 03/30/17 14:10 Blood Culture - Preliminary Blood-Venous NO GROWTH AFTER 48 HOURS Lab Studies 04/02/17 04/02/17 04/02/17 Range/Units 06: 06:00 06:00 WBC 13.6 H D (4.5-11.0) 10^3/ul RBC 5.07 (3.5-6.1) 10^6/uL Hgb 14.0 (14.0-18.0) gm/dL Hct 44.0 (42.0-52.0) % MCV 86.8 (80.0-105.0) fL MCH 27.6 (25.0-35.0) pg MCHC 31.8 (31.0-37.0) g/dl RDW 15.5 H (11.5-14.5) % Plt Count 176 (120.0-450.0) 10^3/uL MPV 11.4 H (7.0-11.0) fl Gran % 69.3 H (50.0-68.0) % Lymph % (Auto) 15.4 L (22.0-35.0) % Deuel % (Auto) 12.0 H (1.0-6.0) % Eos % (Auto) 3.2 (1.5-5.0) % Baso % (Auto) 0.1 (0.0-3.0) % Gran # 9.39 H (1.4-6.5) Lymph # 2.1 (1.2-3.4) Deuel # 1.6 H (0.1-0.6) Eos # 0.4 (0.0-0.7) Baso # 0.01 (0.0-2.0) K/mm3 pCO2 (35-45) mm/Hg pO2 (80-100) mm/Hg HCO3 (21-28) mmol/L ABG pH (7.35-7.45) ABG Total CO2 (22-28) mmol.L ABG O2 Saturation (95-98) % ABG O2 Content (15-23) ML/dl ABG Base Excess (-2.0-3.0) mmol/L ABG Hemoglobin (11.7-17.4) g/dL ABG Carboxyhemoglobin (0.5-1.5) % POC ABG HHb (Measured) (0-5) % ABG Methemoglobin (0.0-3.0) % ABG O2 Capacity (16-24) mL/dl Hgb O2 Saturation (95.0-98.0) % FiO2 % Sodium 141 (132-148) mmol/L Potassium 4.3 (3.6-5.0) mmol/L Chloride 107 (98-107) mmol/L Carbon Dioxide 26 (21-33) mmol/L Anion Gap 12 (10-20) BUN 32 H (7-21) mg/dL Creatinine 1.1 (0.5-1.4) mg/dL Est GFR ( Amer) > 60 Est GFR (Non-Af Amer) > 60 POC Glucose (mg/dL) 146 H (65-110) mg/dL Random Glucose 153 H (70-110) mg/dL Calcium 9.2 (8.4-10.5) mg/dL Total Bilirubin 0.9 (0.2-1.3) mg/dL AST 105 H (15-59) U/L ALT 33 (7-56) U/L Alkaline Phosphatase 105 (38-133) U/L Total Protein 6.2 (5.8-8.3) g/dL Albumin 3.1 (3.0-4.8) g/dL Globulin 3.2 gm/dL Albumin/Globulin Ratio 1.0 L (1.1-1.8) Phenytoin (10-20) ug/mL 04/02/17 04/02/17 04/01/17 Range/Units 06:00 00:39 23:00 WBC (4.5-11.0) 10^3/ul RBC (3.5-6.1) 10^6/uL Hgb (14.0-18.0) gm/dL Hct (42.0-52.0) % MCV (80.0-105.0) fL MCH (25.0-35.0) pg MCHC (31.0-37.0) g/dl RDW (11.5-14.5) % Plt Count (120.0-450.0) 10^3/uL MPV (7.0-11.0) fl Gran % (50.0-68.0) % Lymph % (Auto) (22.0-35.0) % Deuel % (Auto) (1.0-6.0) % Eos % (Auto) (1.5-5.0) % Baso % (Auto) (0.0-3.0) % Gran # (1.4-6.5) Lymph # (1.2-3.4) Deuel # (0.1-0.6) Eos # (0.0-0.7) Baso # (0.0-2.0) K/mm3 pCO2 40 (35-45) mm/Hg pO2 85.0 (80-100) mm/Hg HCO3 27.8 (21-28) mmol/L ABG pH 7.45 (7.35-7.45) ABG Total CO2 29.0 H (22-28) mmol.L ABG O2 Saturation 99.1 H (95-98) % ABG O2 Content 17.7 (15-23) ML/dl ABG Base Excess 3.5 H (-2.0-3.0) mmol/L ABG Hemoglobin 13.0 (11.7-17.4) g/dL ABG Carboxyhemoglobin 2.3 H (0.5-1.5) % POC ABG HHb (Measured) 0.9 (0-5) % ABG Methemoglobin 0.6 (0.0-3.0) % ABG O2 Capacity 17.9 (16-24) mL/dl Hgb O2 Saturation 96.3 (95.0-98.0) % FiO2 40.0 % Sodium (132-148) mmol/L Potassium (3.6-5.0) mmol/L Chloride (98-107) mmol/L Carbon Dioxide (21-33) mmol/L Anion Gap (10-20) BUN (7-21) mg/dL Creatinine (0.5-1.4) mg/dL Est GFR ( Amer) Est GFR (Non-Af Amer) POC Glucose (mg/dL) 227 H (65-110) mg/dL Random Glucose (70-110) mg/dL Calcium (8.4-10.5) mg/dL Total Bilirubin (0.2-1.3) mg/dL AST (15-59) U/L ALT (7-56) U/L Alkaline Phosphatase (38-133) U/L Total Protein (5.8-8.3) g/dL Albumin (3.0-4.8) g/dL Globulin gm/dL Albumin/Globulin Ratio (1.1-1.8) Phenytoin 6 L (10-20) ug/mL 04/01/ Range/Units 11:34 WBC (4.5-11.0) 10^3/ul RBC (3.5-6.1) 10^6/uL Hgb (14.0-18.0) gm/dL Hct (42.0-52.0) % MCV (80.0-105.0) fL MCH (25.0-35.0) pg MCHC (31.0-37.0) g/dl RDW (11.5-14.5) % Plt Count (120.0-450.0) 10^3/uL MPV (7.0-11.0) fl Gran % (50.0-68.0) % Lymph % (Auto) (22.0-35.0) % Deuel % (Auto) (1.0-6.0) % Eos % (Auto) (1.5-5.0) % Baso % (Auto) (0.0-3.0) % Gran # (1.4-6.5) Lymph # (1.2-3.4) Deuel # (0.1-0.6) Eos # (0.0-0.7) Baso # (0.0-2.0) K/mm3 pCO2 (35-45) mm/Hg pO2 (80-100) mm/Hg HCO3 (21-28) mmol/L ABG pH (7.35-7.45) ABG Total CO2 (22-28) mmol.L ABG O2 Saturation (95-98) % ABG O2 Content (15-23) ML/dl ABG Base Excess (-2.0-3.0) mmol/L ABG Hemoglobin (11.7-17.4) g/dL ABG Carboxyhemoglobin (0.5-1.5) % POC ABG HHb (Measured) (0-5) % ABG Methemoglobin (0.0-3.0) % ABG O2 Capacity (16-24) mL/dl Hgb O2 Saturation (95.0-98.0) % FiO2 % Sodium (132-148) mmol/L Potassium (3.6-5.0) mmol/L Chloride (98-107) mmol/L Carbon Dioxide (21-33) mmol/L Anion Gap (10-20) BUN (7-21) mg/dL Creatinine (0.5-1.4) mg/dL Est GFR ( Amer) Est GFR (Non-Af Amer) POC Glucose (mg/dL) 249 H (65-110) mg/dL Random Glucose (70-110) mg/dL Calcium (8.4-10.5) mg/dL Total Bilirubin (0.2-1.3) mg/dL AST (15-59) U/L ALT (7-56) U/L Alkaline Phosphatase (38-133) U/L Total Protein (5.8-8.3) g/dL Albumin (3.0-4.8) g/dL Globulin gm/dL Albumin/Globulin Ratio (1.1-1.8) Phenytoin (10-20) ug/mL Laboratory Results - last 24 hr 04/01/17 04/01/17 04/02/17 11:34 23:00 00:39 WBC RBC Hgb Hct MCV MCH MCHC RDW Plt Count MPV Gran % Lymph % (Auto) Deuel % (Auto) Eos % (Auto) Baso % (Auto) Gran # Lymph # Deuel # Eos # Baso # pCO2 pO2 HCO3 ABG pH ABG Total CO2 ABG O2 Saturation ABG O2 Content ABG Base Excess ABG Hemoglobin ABG Carboxyhemoglobin POC ABG HHb (Measured) ABG Methemoglobin ABG O2 Capacity Hgb O2 Saturation FiO2 Sodium Potassium Chloride Carbon Dioxide Anion Gap BUN Creatinine Est GFR ( Amer) Est GFR (Non-Af Amer) POC Glucose (mg/dL) 249 H 227 H Random Glucose Calcium Total Bilirubin AST ALT Alkaline Phosphatase Total Protein Albumin Globulin Albumin/Globulin Ratio Phenytoin 6 L 04/02/17 04/02/17 04/02/17 06:00 06:00 06:00 WBC 13.6 H D RBC 5.07 Hgb 14.0 Hct 44.0 MCV 86.8 MCH 27.6 MCHC 31.8 RDW 15.5 H Plt Count 176 MPV 11.4 H Gran % 69.3 H Lymph % (Auto) 15.4 L Deuel % (Auto) 12.0 H Eos % (Auto) 3.2 Baso % (Auto) 0.1 Gran # 9.39 H Lymph # 2.1 Deuel # 1.6 H Eos # 0.4 Baso # 0.01 pCO2 40 pO2 85.0 HCO3 27.8 ABG pH 7.45 ABG Total CO2 29.0 H ABG O2 Saturation 99.1 H ABG O2 Content 17.7 ABG Base Excess 3.5 H ABG Hemoglobin 13.0 ABG Carboxyhemoglobin 2.3 H POC ABG HHb (Measured) 0.9 ABG Methemoglobin 0.6 ABG O2 Capacity 17.9 Hgb O2 Saturation 96.3 FiO2 40.0 Sodium 141 Potassium 4.3 Chloride 107 Carbon Dioxide 26 Anion Gap 12 BUN 32 H Creatinine 1.1 Est GFR ( Amer) > 60 Est GFR (Non-Af Amer) > 60 POC Glucose (mg/dL) Random Glucose 153 H Calcium 9.2 Total Bilirubin 0.9 AST 105 H ALT 33 Alkaline Phosphatase 105 Total Protein 6.2 Albumin 3.1 Globulin 3.2 Albumin/Globulin Ratio 1.0 L Phenytoin 04/02/17 06:17 WBC RBC Hgb Hct MCV MCH MCHC RDW Plt Count MPV Gran % Lymph % (Auto) Deuel % (Auto) Eos % (Auto) Baso % (Auto) Gran # Lymph # Deuel # Eos # Baso # pCO2 pO2 HCO3 ABG pH ABG Total CO2 ABG O2 Saturation ABG O2 Content ABG Base Excess ABG Hemoglobin ABG Carboxyhemoglobin POC ABG HHb (Measured) ABG Methemoglobin ABG O2 Capacity Hgb O2 Saturation FiO2 Sodium Potassium Chloride Carbon Dioxide Anion Gap BUN Creatinine Est GFR ( Amer) Est GFR (Non-Af Amer) POC Glucose (mg/dL) 146 H Random Glucose Calcium Total Bilirubin AST ALT Alkaline Phosphatase Total Protein Albumin Globulin Albumin/Globulin Ratio Phenytoin Fingerstick Blood Sugar Results: 146
--- NOTE | 2017-04-02 10:59 | PN ---
DATE: 04/02/2017(610am--700am) SUBJECTIVE: The patient remains on the ventilator. He is very lethargic. He is not sedated (discussed with nurse). PHYSICAL EXAMINATION: VITAL SIGNS: Temperature is 98.8, pulse on the monitor is 82, respiratory rate 24/24, blood pressure 135/54. HEENT: Normocephalic, atraumatic. No JVD. CARDIOVASCULAR: Positive S1, S2. No S3. LUNGS: Decreased breath sounds at the bases. Minimal rhonchi. No wheezing. EXTREMITIES: Mild edema. No cyanosis, no clubbing. GASTROINTESTINAL: Abdomen is soft, nondistended. Bowel sounds are positive. SKIN: No acute rash. NEUROLOGIC: Limited at the present time. PERTINENT LABORATORY DATA: Chest x-ray was done this morning and reviewed. It is not significantly changed from the previous film. Arterial blood gas was done on assist control 24, tidal volume 450, FiO2 of 40%, PEEP of 10. Results are: pH 7.45, pCO2 of 40, pO2 of 85. IMPRESSION: 1. Ventricular fibrillation arrest, status post cardiopulmonary resuscitation. 2. Respiratory failure. 3. Coronary artery disease. 4. Chronic obstructive pulmonary disease. 5. Probable aspiration pneumonia. 6. Encephalopathy. PLAN: The patient remains in the ICU and on the ventilator. He remains very lethargic. He is not sedated -- discussed with nurse. I did discuss the case with the night nurse at length. The night nurse confirms that the patient has not improved neurologically. I did review the chest x-ray from this morning. The x-ray is not significantly changed from yesterday's film. I have also reviewed the arterial blood gas. The arterial blood gas remains with a mild alveolar arterial gradient, but is very acceptable at this point in time. I would continue with the current ventilator settings for now. The pH is now normal. I would continue with the antibiotic coverage as per infectious disease. The temperatures are resolving. Inputs by neurology (Dr. Mills) and palliative care (Amanda Clay) are noted. Unfortunately, as time goes on , the lack of neurologic improvement portends a poor prognosis. We are awaiting additional family decisions. I will discuss the above with the entire ICU team in the next few moments. I will also discuss the above with the attending physician later this morning. Sacha Hopkins MD cc: [phone] TT: 04/02/2017 10:58:31 Confirmation # [id number] Dictation # [id number] MTDD
--- NOTE | 2017-04-02 11:15 | RAD ---
HISTORY: f/u COMPARISON: Chest x-ray performed 04/01/17 TECHNIQUE: Chest, one view. FINDINGS: Examination limited by habitus and external artifact. Distal tip of an endotracheal tube terminates approximately 5.5 cm above the braydon. Nasogastric tube extends the expected location of the stomach. Left-sided PICC extends to the expected location of the cavoatrial junction. LUNGS: Mild interstitial prominence may reflect infection or edema. Please note that chest x-ray has limited sensitivity for the detection of pulmonary masses. PLEURA: No significant pleural effusion identified. No definite pneumothorax . CARDIOVASCULAR: Cardiomegaly. OSSEOUS STRUCTURES: No acute osseous abnormality identified. VISUALIZED UPPER ABDOMEN: Unremarkable. OTHER FINDINGS: None. IMPRESSION: Distal tip of an endotracheal tube terminates approximately 5.5 cm above the braydon. Nasogastric tube extends the expected location of the stomach. Left-sided PICC extends to the expected location of the cavoatrial junction. Mild interstitial prominence may reflect infection or edema. Cardiomegaly.
--- NOTE | 2017-04-02 13:03 | CP.PCM.PN ---
Subjective - Date & Time of Evaluation Date of Evaluation: 04/02/17 Time of Evaluation: 10:30 - Subjective Subjective: Continues to be on the ventilator, poorly responsive, not in distress currently , afebrile. Objective - Vital Signs/Intake and Output Vital Signs (last 24 hours): Temp Pulse Resp BP Pulse Ox 98.4 F 84 21 160/53 H 96 04/02/17 07:01 04/02/17 07:01 04/01/17 20:00 04/02/17 07:01 04/02/17 06:01 - Medications Medications: Current Medications Albuterol/Ipratropium (Duoneb 3 Mg/0.5 Mg (3 Ml) Ud) 3 ml IH [id number] [facility] Last Admin: 04/02/17 07:47 Dose: 3 ml Budesonide (Pulmicort Respules) 0.5 mg IH [id number] [facility] Last Admin: 04/02/17 07:47 Dose: 0.5 mg Heparin Sodium (Porcine) (Heparin) 5,000 units SC Q8 [facility] PRN Reason: Protocol Last Admin: 04/02/17 06:21 Dose: 5,000 units Hydralazine HCl (Apresoline) 25 mg PO QID [facility] Last Admin: 04/01/17 21:26 Dose: 25 mg Meropenem 1g/NS 100mL IVPB (Meropenem 1g/Ns 100ml Ivpb) 1 gm in 100 mls @ 100 mls/hr IVPB Q12 [facility] PRN Reason: Protocol Stop: 04/05/17 22:01 Last Admin: 04/01/17 21:25 Dose: 100 mls/hr Levetiracetam 1,000 mg/ Sodium (Chloride) 110 mls @ 460 mls/hr IV Q12 [facility] Last Admin: 04/01/17 22:05 Dose: 460 mls/hr Linezolid (Zyvox 600mg/300ml D5w) 600 mg in 300 mls @ 200 mls/hr IVPB Q12 [facility] PRN Reason: Protocol Stop: 04/06/17 10:01 Last Admin: 04/01/17 21:13 Dose: 200 mls/hr Insulin Human Regular (Humulin R Med) 0 units SC Q6 [facility] PRN Reason: Protocol Last Admin: 04/02/17 06:19 Dose: Not Given Isosorbide Mononitrate (Ismo) 10 mg PO 0800,1500 [facility] Last Admin: 04/01/17 14:18 Dose: 10 mg Lorazepam (Ativan) 1 mg IVP Q6H PRN; Protocol PRN Reason: Seizure activity Last Admin: 03/28/17 08:00 Dose: 1 mg Metoprolol Tartrate (Lopressor) 25 mg PO BRKDIN [facility] Last Admin: 04/01/17 18:20 Dose: 25 mg Pantoprazole Sodium (Protonix Inj) 40 mg IVP DAILY [facility] Last Admin: 04/01/17 09:20 Dose: 40 mg Phenytoin (Dilantin) 100 mg IVP Q6H [facility] Last Admin: 04/02/17 06:22 Dose: 100 mg Polyethylene Glycol (Miralax) 17 gm PO BID [facility] Last Admin: 04/01/17 18:20 Dose: 17 gm Ramipril (Altace) 2.5 mg PO DAILY [facility] Last Admin: 04/01/17 09:19 Dose: 2.5 mg - Labs Labs: 04/02/17 06:00 04/02/17 06:00 PT 12.2 Seconds (9.9-11.8) H 04/01/17 06:35 INR 1.13 (0.93-1.08) H 04/01/17 06:35 APTT 27.5 Seconds (23.7-30.8) 04/01/17 06:35 - Constitutional Appears: Other (Intubated and poorly responsive) - Head Exam Head Exam: NORMAL INSPECTION - ENT Exam Additional comments: ET tube in place - Neck Exam Neck Exam: absent: Lymphadenopathy, Meningismus - Respiratory Exam Respiratory Exam: Decreased Breath Sounds - Cardiovascular Exam Cardiovascular Exam: +S1, +S2 - GI/Abdominal Exam GI & Abdominal Exam: Soft. absent: Tenderness Assessment and Plan - Assessment and Plan (Free Text) Plan: Assessment Systemic Inflammatory Response Syndrome (leukocytosis and hypothermia) probably due to cardiorespiratory arrest, R/O acute coronary syndrome; sepsis due to probable aspiration pneumonia acute on chronic renal failure CAD S/P PCI chronic CHF DM HTN hyothyroidism history of right arm surgery Plan continue Merrem (day 6) and Zyvox (day 4) since the patient developed fevers - repeat blood cx are negative; CXR shows bilateral infiltrates PCT is elevated because of the renal failure; reviewed Cardiology and Pulmonary recommendations will continue to monitor clinically Patient continues to be in critical condition and overall prognosis is poor discussed EEG findings with Neurology and it is compatible with anoxic brain injury; meningioma on MRI is an incidental finding
--- NOTE | 2017-04-02 13:05 | PN ---
DATE: 04/02/2017 I saw the patient in the intensive care unit with his . We had a very long talk, at least 20 minutes. She is very conflicted about going for PEG tube and a trach. He is on the ventilator. He is lethargic. He is not sedated. He has got VF cardiac arrest, respiratory failure on the ventilator, encephalopathy , COPD, CAD and pneumonia. She tells me she is just not ready to let him go. She wants him to have the PEG and the trach and then she wants to move him to a facility and may be in the future, she will change her mind. That is where she is at right. PHYSICAL EXAMINATION: VITAL SIGNS: 97.4 temp, 63 pulse, 102/45 blood pressure, 97% O2 sat. HEENT: His head is atraumatic, normocephalic. He is intubated. HEART: Regular rate. LUNGS: Decreased breath sounds, but clear. ABDOMEN: Soft, morbidly obese. EXTREMITIES: +2/4 pitting edema. MEDICATIONS: He is on Altace, Apresoline, Ativan, Dilantin, DuoNebs, heparin, insulin, Ismo, levetiracetam, Lopressor, Merrem IV, MiraLax, Protonix, Pulmicort , and Zyvox. LABORATORY DATA: He has a 13.6 white count going up a little bit, 14 hemoglobin , 44 hematocrit, 176 platelets. INR is 1.13. 141 sodium, potassium 4.3, BUN 32 , creatinine 1.1, GFR is greater than 60, sugar is 153, calcium is 9.2, total bili is 0.9, AST is 105, ALT is 33, alk phos 105. Total protein 6.2. He is being seen by the seedling sorter, ruling machine set up operator, surgery, palliative care, infectious disease, neurology. He has got multiple issues and problems. I discussed this at length with the for a long time. We will check his labs tomorrow. She wants everything done, feeding tube and tracheostomy. She does not want terminal extubation at this time. We will continue aggressive treatment and care, probably get him to long-term acute care when we are done We will check his labs tomorrow. Chepe Swan DO cc: [id number] TT: 04/02/2017 13:03:33 Confirmation # [id number] Dictation # [id number] tn MTDD
--- NOTE | 2017-04-02 14:32 | PN ---
DATE: 04/02/2017 The patient is still deeply comatose on the vent. PHYSICAL EXAMINATION: VITAL SIGNS: Blood pressure 123/57, heart rate 62, temperature 95, respirations 22. HEENT: No pallor. NECK: No JVD. CHEST: Diminished breath sounds basally. HEART: S1, S2 regular. EXTREMITIES: Trace edema. LABORATORIES: Hemoglobin and hematocrit 14 and 44, white count and platelet count are 13.6 and 176,0 00. Today's SMA-7 is within normal limits except for glucose 153 and BUN of 32. Phenytoin level was 6 yesterday. ASSESSMENT: 1. Anoxic encephalopathy. 2. Status post cardiac arrest, primary ventricular fibrillation. 3. Chronic obstructive lung disease. 4. Rule out aspiration pneumonia. 5. History of coronary artery disease and multiple coronary stenting in the past. 6. Brain mass with adjacent vasogenic edema. RECOMMENDATIONS: Continue current Altace at 2.5 mg once a day, hydralazine 25 mg q.i.d., Dilantin 10 0 mg intravenous q. 6 hours, heparin 5000 units subcutaneously q. 8 hours, Ismo at 10 mg twice a day, Lopressor 25 mg twice a day, IV meropenem at 1 gram q. 12 hours, Protonix at 40 mg intravenously ru ly, Zyvox 600 mg intravenously q. 12 hours. The case was discussed at length with the patient's at the bedside. The plan is to perform both tracheostomy and gastrostomy feeding tube placement scott or to transferring the patient to LTAC. Andres Vides MD cc: [id number] TT: 04/02/2017 14:32:03 Confirmation # [id number] Dictation # [id number] tn
--- NOTE | 2017-04-02 15:58 | CARD ---
APPROVED REPORT EKG Measurement Heart [id number] <Conclusion> Atrial fibrillation Abnormal QRS-T angle, consider primary T wave abnormality Abnormal ECG
[2017-04-03] MEDS: Phenytoin 100 mg/2 ml Inj IVP SCH ×4 (00:42→18:12)
[2017-04-03] MEDS: Insulin Reg-MEDIUM-Coverage SC SCH ×5 (00:42→18:09)
[2017-04-03 05:23] LABS: ADD MANUAL DIFF? NO
[2017-04-03 05:42] LABS: BASO # 0.02 K/mm3 (0.0-2.0); BASO % 0.2 % (0.0-3.0); EOS # 0.5 (0.0-0.7); EOS % 5.1 % (1.5-5.0); GRAN # 7.26 (1.4-6.5); GRAN % 68.5 % (50.0-68.0); HEMATOCRIT 41.3 % (42.0-52.0); LYMPH # 1.7 (1.2-3.4); LYMPH % 16.4 % (22.0-35.0); MEAN CELL VOLUME 86.4 fL (80.0-105.0); MEAN CORPUSCULAR HEMOGLOBIN 27.8 pg (25.0-35.0); MEAN CORPUSCULAR HGB CONC 32.2 g/dl (31.0-37.0); MEAN PLATELET VOLUME 11.3 fl (7.0-11.0); MONO % 9.8 % (1.0-6.0); PLATELET COUNT 184 10^3/uL (120.0-450.0); RED CELL DISTRIBUTION WIDTH 15.5 % (11.5-14.5); WHITE BLOOD COUNT 10.6 10^3/ul (4.5-11.0)
[2017-04-03 05:47] LABS: INR 1.13 (0.93-1.08)
[2017-04-03 05:50] LABS: ALB/GLOB RATIO 0.9 (1.1-1.8); ALKALINE PHOSPHATASE 106 U/L (38-133); ALT/SGPT 36 U/L (7-56); AST/SGOT 71 U/L (15-59); BILIRUBIN,TOTAL 0.7 mg/dL (0.2-1.3); BLOOD UREA NITROGEN 36 mg/dL (7-21); CALCIUM 9.3 mg/dL (8.4-10.5); CARBON DIOXIDE 28 mmol/L (21-33); CHLORIDE 105 mmol/L (98-107); GFR AFRICAN-AMERICAN > 60; GLUCOSE,RANDOM 174 mg/dL (70-110); POTASSIUM 4.2 mmol/L (3.6-5.0); SODIUM 138 mmol/L (132-148); TOTAL PROTEIN 5.8 g/dL (5.8-8.3)
[2017-04-03 05:54] LABS: ARTERIAL BLOOD GAS HCO3 28.4 mmol/L (21-28); ARTERIAL BLOOD GAS O2 CONTENT 17.4 ML/dl (15-23); ARTERIAL BLOOD GAS PH 7.47 (7.35-7.45); ARTERIAL BLOOD HGB O2 SAT 93.6 % (95.0-98.0); CARBOXYHEMOGLOBIN 2.2 % (0.5-1.5); HHB 3.1 % (0-5)
--- NOTE | 2017-04-03 07:32 | CP.PCM.PN ---
<Naty Vallejo - Last Filed: 04/03/17 09:42> Subjective - Date & Time of Evaluation Date of Evaluation: 04/03/17 Time of Evaluation: 07:28 - Subjective Subjective: ICU Progress Note Patient seen and examined at bedside. There were no acute overnight events. Patient is intubated and not on sedation. He is not spontaneously opening eyes or responding to speech. ROS could not be obtained. Objective - Vital Signs/Intake and Output Vital Signs (last 24 hours): Temp Pulse Resp BP Pulse Ox 99.1 F 76 21 114/61 93 L 04/03/17 06:00 04/03/17 06:00 04/03/17 04:00 04/03/17 06:00 04/03/17 06:00 Intake and Output: 04/03/17 04/03/17 06:59 18:59 Intake Total 1520 Output Total 575 Balance 945 - Medications Medications: Current Medications Albuterol/Ipratropium (Duoneb 3 Mg/0.5 Mg (3 Ml) Ud) 3 ml IH [id number] [facility] Last Admin: 04/02/17 19:52 Dose: 3 ml Budesonide (Pulmicort Respules) 0.5 mg IH [id number] [facility] Last Admin: 04/02/17 19:51 Dose: 0.5 mg Heparin Sodium (Porcine) (Heparin) 5,000 units SC Q8 [facility] PRN Reason: Protocol Last Admin: 04/03/17 05:41 Dose: 5,000 units Hydralazine HCl (Apresoline) 25 mg PO QID [facility] Last Admin: 04/02/17 21:49 Dose: 25 mg Levetiracetam 1,000 mg/ Sodium (Chloride) 110 mls @ 460 mls/hr IV Q12 [facility] Last Admin: 04/02/17 21:47 Dose: 460 mls/hr Linezolid (Zyvox 600mg/300ml D5w) 600 mg in 300 mls @ 200 mls/hr IVPB Q12 [facility] PRN Reason: Protocol Stop: 04/06/17 10:01 Last Admin: 04/02/17 22:12 Dose: 200 mls/hr Insulin Human Regular (Humulin R Med) 0 units SC Q6 [facility] PRN Reason: Protocol Last Admin: 04/03/17 05:40 Dose: 1 units Isosorbide Mononitrate (Ismo) 10 mg PO 0800,1500 [facility] Last Admin: 04/02/17 15:46 Dose: Not Given Lorazepam (Ativan) 1 mg IVP Q6H PRN; Protocol PRN Reason: Seizure activity Last Admin: 03/28/17 08:00 Dose: 1 mg Metoprolol Tartrate (Lopressor) 25 mg PO BRKDIN [facility] Last Admin: 04/02/17 18:17 Dose: Not Given Pantoprazole Sodium (Protonix Inj) 40 mg IVP DAILY [facility] Last Admin: 04/02/17 10:00 Dose: 40 mg Phenytoin (Dilantin) 100 mg IVP Q6H [facility] Last Admin: 04/03/17 05:56 Dose: 100 mg Polyethylene Glycol (Miralax) 17 gm PO BID [facility] Last Admin: 04/02/17 18:20 Dose: 17 gm Ramipril (Altace) 2.5 mg PO DAILY [facility] Last Admin: 04/02/17 10:15 Dose: Not Given - Labs Labs: 04/03/17 05:00 04/03/17 05:00 PT 12.2 Seconds (9.9-11.8) H 04/03/17 05:00 INR 1.13 (0.93-1.08) H 04/03/17 05:00 APTT 27.5 Seconds (23.7-30.8) 04/01/17 06:35 - Constitutional Appears: No Acute Distress, Chronically Ill - Head Exam Head Exam: ATRAUMATIC, NORMAL INSPECTION, NORMOCEPHALIC - Eye Exam Eye Exam: Normal appearance, PERRL Pupil Exam: NORMAL ACCOMODATION, PERRL - ENT Exam ENT Exam: Mucous Membranes Moist - Neck Exam Neck Exam: Full ROM - Respiratory Exam Respiratory Exam: Clear to Ausculation Bilateral, NORMAL BREATHING PATTERN. absent: Rales, Rhonchi, Wheezes - Cardiovascular Exam Cardiovascular Exam: REGULAR RHYTHM, +S1, +S2. absent: Gallop, Rubs, Murmur - GI/Abdominal Exam GI & Abdominal Exam: Soft, Normal Bowel Sounds. absent: Rigid, Tenderness, Mass , Rebound - Extremities Exam Extremities Exam: Pedal Edema. absent: Calf Tenderness - Neurological Exam Neurological Exam: CN II-XII Intact. absent: Oriented x3 - Skin Skin Exam: Dry, Intact, Normal Color, Warm Assessment and Plan - Assessment and Plan (Free Text) Assessment: This is a 71Y M with PMH HTN, DM, HLD, CAD s/p 3 stents, COPD, ARIELLE s/p cardiac arrest with ROSC and anoxic encephalopathy. Hypothermia protocol was initiated upon admission and has been warmed up. Patient noted to be in vegetative state. Plan: Neuro: Anoxic encephalopathy- having purposeful life unlikely as per neuro Intubated and off sedation Neuro consulted- recs appreciated Continue Keppra and Phenytoin Maintain normothermia CV: Maintain MAP >65 HD stable at this time. Cardio consulted- recs appreciated Resp: Maintain spO2>90% Continue protective lung ventilation strategy on PRVC Rate: 20, TV: 450, Fio2: 40 and PEEP of 8 Will try to wean as tolerated with PS and SBT GI: Glucerna with goal of 60ml/hr Miralax for constipation Monitor for BM /Neprho: Continue to monitor I&O Maintain euvolemia Will continue to monitor electrolytes and replace as needed Heme: Hgb stable- no signs of overt bleeding Continue to monitor CBC ID: Leukocytosis resolved, afebrile Blood cultures and urine cultures negative ID consulted-recs appreciated On Linezolid Endo: Maintain euglycemia- between 140-180 GI ppx: Pepcid IVP DVT ppx: Heparin SC q8h Dispo: Family plan today to decide for trach and peg versus withdrawal of care Case seen, discussed and reviewed with attending. Alton Vallejo PGY1 <Gualberto PHAN,Zuhair H - Last Filed: 04/03/17 11:55> Objective - Vital Signs/Intake and Output Vital Signs (last 24 hours): Temp Pulse Resp BP Pulse Ox 98.8 F 74 20 140/58 L 94 L 04/03/17 09:30 04/03/17 09:30 04/03/17 09:30 04/03/17 10:05 04/03/17 09:30 Intake and Output: 04/03/17 04/03/17 06:59 18:59 Intake Total 1520 Output Total 575 Balance 945 - Medications Medications: Current Medications Albuterol/Ipratropium (Duoneb 3 Mg/0.5 Mg (3 Ml) Ud) 3 ml IH [id number] [facility] Last Admin: 04/03/17 08:00 Dose: 3 ml Budesonide (Pulmicort Respules) 0.5 mg IH [id number] [facility] Last Admin: 04/03/17 08:00 Dose: 0.5 mg Heparin Sodium (Porcine) (Heparin) 5,000 units SC Q8 [facility] PRN Reason: Protocol Last Admin: 04/03/17 05:41 Dose: 5,000 units Hydralazine HCl (Apresoline) 25 mg PO QID [facility] Last Admin: 04/03/17 10:05 Dose: 25 mg Levetiracetam 1,000 mg/ Sodium (Chloride) 110 mls @ 460 mls/hr IV Q12 [facility] Last Admin: 04/03/17 10:10 Dose: 460 mls/hr Linezolid (Zyvox 600mg/300ml D5w) 600 mg in 300 mls @ 200 mls/hr IVPB Q12 [facility] PRN Reason: Protocol Stop: 04/06/17 10:01 Last Admin: 04/03/17 10:04 Dose: 200 mls/hr Insulin Human Regular (Humulin R Med) 0 units SC Q6 [facility] PRN Reason: Protocol Last Admin: 04/03/17 05:40 Dose: 1 units Isosorbide Mononitrate (Ismo) 10 mg PO 0800,1500 [facility] Last Admin: 04/03/17 10:05 Dose: 10 mg Lorazepam (Ativan) 1 mg IVP Q6H PRN; Protocol PRN Reason: Seizure activity Last Admin: 03/28/17 08:00 Dose: 1 mg Metoprolol Tartrate (Lopressor) 25 mg PO BRKDIN [facility] Last Admin: 04/03/17 10:05 Dose: 25 mg Pantoprazole Sodium (Protonix Inj) 40 mg IVP DAILY [facility] Last Admin: 04/03/17 10:04 Dose: 40 mg Phenytoin (Dilantin) 100 mg IVP Q6H [facility] Last Admin: 04/03/17 05:56 Dose: 100 mg Polyethylene Glycol (Miralax) 17 gm PO BID [facility] Last Admin: 04/03/17 10:04 Dose: 17 gm Ramipril (Altace) 2.5 mg PO DAILY [facility] Last Admin: 04/03/17 10:05 Dose: 2.5 mg - Labs Labs: 04/03/17 05:00 04/03/17 05:00 PT 12.2 Seconds (9.9-11.8) H 04/03/17 05:00 INR 1.13 (0.93-1.08) H 04/03/17 05:00 APTT 27.5 Seconds (23.7-30.8) 04/01/17 06:35 Attending/Attestation - Attestation I have personally seen and examined this patient.: Yes I have fully participated in the care of the patient.: Yes I have reviewed all pertinent clinical information, including history, physical exam and plan: Yes Notes (Text): 04/03/17 11:54 S/P Out of hospital cardiac arrest VDRF Minimal neurological improvement. SBT trial daily x 2 hrs. Vitals and Labs are WNL. On seizure P by neurology w/ Davi and Jsesica. maybe able to wean off to see if patient is less somnolent. Plan for Trach and PEG on tuesday. DVT P PPI Tube feeds continued cc time 65 min
[2017-04-03] MEDS: Budesonide 0.5 mg/2 ml Inhal Susp UD IH SCH ×2 (08:00→19:36)
[2017-04-03] MEDS: Albuterol-Ipratrop 3 mg / 0.5 (3 ml) UD IH SCH ×2 (08:00→19:36)
[2017-04-03] MEDS: POLYETHYLENE GLYCOL 3350 17 GM/Dose PACKET PO SCH ×2 (10:04→18:12)
[2017-04-03] MEDS: Linezolid 600 mg in D5W 300 ml 600 MG/300 ML BAG IVPB SCH ×2 (10:04→21:25)
[2017-04-03] MEDS: levETIRAcetam 1,000 MG in Sodium Chloride 0.9% 100 ML IV SCH (10:10)
--- NOTE | 2017-04-03 10:50 | PN ---
DATE: 04/03/2017(610am--700am) SUBJECTIVE: The patient remains on the ventilator. He remains very lethargic. He is not sedated -- discussed with nurse. VITAL SIGNS: Temperature is 99.1, pulse 76, respirations 21/21, blood pressure 114/61. HEENT: Normocephalic, atraumatic. NECK: Negative JVD. CARDIOVASCULAR: Positive S1, S2. No S3. LUNGS: Decreased breath sounds at the bases. Less rhonchi. No wheezing. EXTREMITIES: Mild edema. No cyanosis, no clubbing. GASTROINTESTINAL: Abdomen is soft, nondistended. Bowel sounds are positive. SKIN: No acute rash. NEUROLOGIC: Limited at the present time. PERTINENT LABORATORY DATA: Chest x-ray was done this morning and reviewed. The chest x-ray this morning is similar to yesterday's film -- but significantly improved from the original films. Arterial blood gas was also done on assist control 21, tidal volume 450, FiO2 40%, PEEP of 10. Results are : pH 7.47, pCO2 of 39, pO2 of 75. IMPRESSION: 1. Ventricular fibrillation arrest, status post cardiopulmonary resuscitation. 2. Respiratory failure. 3. Coronary artery disease. 4. Chronic obstructive pulmonary disease. 5. Probable aspiration pneumonia. 6. Encephalopathy. PLAN: The patient remains in the ICU and on the ventilator. He remains very lethargic. He is not sedated -- discussed with nurse. I did discuss the case with the night nurse at length. The night nurse confirms that the patient has not improved neurologically. I did review the chest x-ray from this morning. The chest x-ray this morning is similar to yesterday's film -- but much improved from the original films. I have also reviewed the arterial blood gas. There is a mixed disorder present with a decrease in the alveolar arterial gradient. I would continue with the current ventilator settings for now. The patient remains on antibiotic therapy -- as per infectious disease. The temperatures are resolving. The leukocytosis has completely resolved. Input by cardiology and neurology are noted. Unfortunately, the patient has not regained a meaningful neurologic status. This issue makes the overall status/ prognosis poor. I will discuss the above with the entire ICU team in the next few moments. I will also discuss the above with the attending physician later this morning. Sacha Hopkins MD cc: [id number] TT: 04/03/2017 10:49:46 Confirmation # [id number] Dictation # [id number] dn [email or web address]
--- NOTE | 2017-04-03 11:37 | PN ---
DATE: 04/03/2017 I saw him in the intensive care unit, still on the ventilator, multiple tubes. I also saw him with the and discussed at length the trachea and the PEG tube, and she still wants them to be done tomorrow and then she wants him to go to a facility where she will make a decision later on. She is not ready to take him off life support. MEDICATIONS: He is on Altace, Apresoline, Ativan, Dilantin, DuoNebs, heparin, insulin, Ismo, levetiracetam, Lopressor, MiraLax, Protonix, Pulmicort, and Zyvox. PHYSICAL EXAMINATION: VITAL SIGNS: 99.1 temp, 76 pulse, 114/61 blood pressure, 94% O2 sat on mechanical ventilator. HEENT: His head is atraumatic, normocephalic. HEART: Regular rate. LUNGS: Decreased breath sounds. ABDOMEN: Morbidly obese, soft, nontender. EXTREMITIES: edema. LABORATORY DATA: 10.6 white count, 13.3 hemoglobin, 41.3 hematocrit, 194 platelets. Sodium 138, potassium 4.2, BUN 36, creatinine 1.1, GFR is greater than 60, sugar is 174, calcium 9.3, total bilirubin is 0.7, AST 71, ALT is 36, alk phosphatase 106, total protein is 5.8. The patient is being seen by infectious disease and cardiology. We will continue with our treatment and care , prepare for trach and PEG tube tomorrow. She wants everything done at this time. We will check his labs again. Discussed at length with the and answered many questions from her. She is still so conflicted. Chepe Swan DO cc: [id number] TT: 04/03/2017 11:37:30 Confirmation # [id number] Dictation # [id number] kelsey COULTER
--- NOTE | 2017-04-03 11:42 | RAD ---
HISTORY: f/u COMPARISON: Chest x-ray performed 04/02/17 TECHNIQUE: Chest, one view. FINDINGS: The endotracheal tube terminates approximately 5.3 cm above the braydon. Nasogastric tube extends beyond the hemidiaphragm towards expected location of the stomach. Left-sided PICC extends to cavoatrial junction, partially obscured by overlying wires and leads. Examination limited by habitus. LUNGS: Mild pulmonary venous congestion. Small left pleural effusion and or atelectasis/infiltrate. No definite pneumothorax. Please note that chest x-ray has limited sensitivity for the detection of pulmonary masses. CARDIOVASCULAR: Cardiomegaly. OSSEOUS STRUCTURES: No acute osseous abnormality identified. VISUALIZED UPPER ABDOMEN: Unremarkable. OTHER FINDINGS: None. IMPRESSION: Support lines and tubes as above. Small left pleural effusion and or atelectasis/infiltrate. Mild pulmonary venous congestion. Examination limited by habitus.
--- NOTE | 2017-04-03 11:47 | CP.PCM.PN ---
Subjective - Date & Time of Evaluation Date of Evaluation: 04/03/17 Time of Evaluation: 09:50 - Subjective Subjective: Still on the ventilator, intubated and sedated. No fevers overnight. Objective - Vital Signs/Intake and Output Vital Signs (last 24 hours): Temp Pulse Resp BP Pulse Ox 99.1 F 76 21 114/61 94 L 04/03/17 06:00 04/03/17 06:00 04/03/17 08:00 04/03/17 06:00 04/03/17 08:00 Intake and Output: 04/03/17 04/03/17 06:59 18:59 Intake Total 1520 Output Total 575 Balance 945 - Medications Medications: Current Medications Albuterol/Ipratropium (Duoneb 3 Mg/0.5 Mg (3 Ml) Ud) 3 ml IH [id number] [facility] Last Admin: 04/03/17 08:00 Dose: 3 ml Budesonide (Pulmicort Respules) 0.5 mg IH [id number] [facility] Last Admin: 04/03/17 08:00 Dose: 0.5 mg Heparin Sodium (Porcine) (Heparin) 5,000 units SC Q8 [facility] PRN Reason: Protocol Last Admin: 04/03/17 05:41 Dose: 5,000 units Hydralazine HCl (Apresoline) 25 mg PO QID [facility] Last Admin: 04/02/17 21:49 Dose: 25 mg Levetiracetam 1,000 mg/ Sodium (Chloride) 110 mls @ 460 mls/hr IV Q12 [facility] Last Admin: 04/02/17 21:47 Dose: 460 mls/hr Linezolid (Zyvox 600mg/300ml D5w) 600 mg in 300 mls @ 200 mls/hr IVPB Q12 [facility] PRN Reason: Protocol Stop: 04/06/17 10:01 Last Admin: 04/02/17 22:12 Dose: 200 mls/hr Insulin Human Regular (Humulin R Med) 0 units SC Q6 [facility] PRN Reason: Protocol Last Admin: 04/03/17 05:40 Dose: 1 units Isosorbide Mononitrate (Ismo) 10 mg PO 0800,1500 [facility] Last Admin: 04/02/17 15:46 Dose: Not Given Lorazepam (Ativan) 1 mg IVP Q6H PRN; Protocol PRN Reason: Seizure activity Last Admin: 03/28/17 08:00 Dose: 1 mg Metoprolol Tartrate (Lopressor) 25 mg PO BRKDIN [facility] Last Admin: 04/02/17 18:17 Dose: Not Given Pantoprazole Sodium (Protonix Inj) 40 mg IVP DAILY [facility] Last Admin: 04/02/17 10:00 Dose: 40 mg Phenytoin (Dilantin) 100 mg IVP Q6H [facility] Last Admin: 04/03/17 05:56 Dose: 100 mg Polyethylene Glycol (Miralax) 17 gm PO BID [facility] Last Admin: 04/02/17 18:20 Dose: 17 gm Ramipril (Altace) 2.5 mg PO DAILY [facility] Last Admin: 04/02/17 10:15 Dose: Not Given - Labs Labs: 04/03/17 05:00 04/03/17 05:00 PT 12.2 Seconds (9.9-11.8) H 04/03/17 05:00 INR 1.13 (0.93-1.08) H 04/03/17 05:00 APTT 27.5 Seconds (23.7-30.8) 04/01/17 06:35 - Constitutional Appears: Other (Intubated ,sedated, poorly responsive) - Head Exam Head Exam: NORMAL INSPECTION - ENT Exam Additional comments: ET tube in place - Neck Exam Neck Exam: absent: Meningismus - Respiratory Exam Respiratory Exam: Decreased Breath Sounds - Cardiovascular Exam Cardiovascular Exam: +S1, +S2 - GI/Abdominal Exam GI & Abdominal Exam: Soft. absent: Tenderness Assessment and Plan - Assessment and Plan (Free Text) Plan: Assessment Systemic Inflammatory Response Syndrome (leukocytosis and hypothermia) probably due to cardiorespiratory arrest, R/O acute coronary syndrome; sepsis due to probable aspiration pneumonia acute on chronic renal failure CAD S/P PCI chronic CHF DM HTN hyothyroidism history of right arm surgery Plan continue Merrem (day 7) and Zyvox (day 5) since the patient developed fevers - repeat blood cx are negative; CXR shows bilateral infiltrates PCT is elevated because of the renal failure; reviewed Cardiology and Pulmonary recommendations will continue to monitor clinically Patient continues to be in critical condition and overall prognosis is poor discussed EEG findings with Neurology and it is compatible with anoxic brain injury; meningioma on MRI is an incidental finding as per Neurology
--- NOTE | 2017-04-03 13:32 | CP.PCM.CON ---
History of Present Illness - History of Present Illness History of Present Illness: General Surgery Consult Re: Trach and PEG HPI: Pt is intubated and unresponsive to questioning, history taken from medical records and discussion with care providers. 71M with Cardiac arrest with Vfib at home 03/27/17, incidental 3 cm brain mass, now with anoxic encephalopathy and intubated x 7 days. Pt only responds occasionally to noxious stimuli. We are consulted for trach and PEG placement so pt can be transferred to LTACH. PMH: COPD, CHF, Asthma, Hypothyroid, DM PSH: Cardiac stent, R arm SH: Former smoker, No EtOH or drug use All: NKDA Meds: See MAR Review of Systems - Review of Systems Systems not reviewed;Unavailable: Intubated (unable to review) Past Patient History - Infectious Disease Hx of Infectious Diseases: None - Tetanus Immunizations Tetanus Immunization: Unknown - Past Social History Smoking Status: Former Smoker - CARDIAC Hx Congestive Heart Failure: Yes Hx Pacemaker: No - PULMONARY Hx Asthma: Yes Hx Chronic Obstructive Pulmonary Disease (COPD): Yes - NEUROLOGICAL Hx Neurological Disorder: No - HEENT Hx HEENT Problems: No - RENAL Hx Chronic Kidney Disease: No - ENDOCRINE/METABOLIC Hx Diabetes Mellitus Type 2: Yes Hx Hypothyroidism: Yes - HEMATOLOGICAL/ONCOLOGICAL Hx Blood Disorders: No - INTEGUMENTARY Hx Dermatological Problems: No - MUSCULOSKELETAL/RHEUMATOLOGICAL Hx Falls: Yes - GASTROINTESTINAL Hx Gastrointestinal Disorders: No - GENITOURINARY/GYNECOLOGICAL Hx Genitourinary Disorders: No - PSYCHIATRIC Hx Emotional Abuse: No Hx Physical Abuse: No - SURGICAL HISTORY Hx Coronary Stent: Yes (April) Hx Orthopedic Surgery: Yes (right arm) - ANESTHESIA Hx Anesthesia Reactions: No Hx Malignant Hyperthermia: No Meds Allergies/Adverse Reactions: Allergies Allergy/AdvReac Type Severity Reaction Status Date / Time No Known Allergies Allergy Verified 03/27/17 11:44 - Medications Medications: Current Medications Albuterol/Ipratropium (Duoneb 3 Mg/0.5 Mg (3 Ml) Ud) 3 ml IH [id number] [facility]OUISE Last Admin: 04/03/17 08:00 Dose: 3 ml Budesonide (Pulmicort Respules) 0.5 mg IH [id number] LOUISE Last Admin: 04/03/17 08:00 Dose: 0.5 mg Heparin Sodium (Porcine) (Heparin) 5,000 units SC Q8 [facility] PRN Reason: Protocol Last Admin: 04/03/17 05:41 Dose: 5,000 units Hydralazine HCl (Apresoline) 25 mg PO QID [facility] Last Admin: 04/03/17 10:05 Dose: 25 mg Linezolid (Zyvox 600mg/300ml D5w) 600 mg in 300 mls @ 200 mls/hr IVPB Q12 [facility] PRN Reason: Protocol Stop: 04/06/17 10:01 Last Admin: 04/03/17 10:04 Dose: 200 mls/hr Insulin Human Regular (Humulin R Med) 0 units SC Q6 LOUISE PRN Reason: Protocol Last Admin: 04/03/17 12:22 Dose: 1 units Isosorbide Mononitrate (Ismo) 10 mg PO 0800,1500 [facility] Last Admin: 04/03/17 10:05 Dose: 10 mg Lorazepam (Ativan) 1 mg IVP Q6H PRN; Protocol PRN Reason: Seizure activity Last Admin: 03/28/17 08:00 Dose: 1 mg Metoprolol Tartrate (Lopressor) 25 mg PO BRKDIN [facility] Last Admin: 04/03/17 10:05 Dose: 25 mg Pantoprazole Sodium (Protonix Inj) 40 mg IVP DAILY [facility] Last Admin: 04/03/17 10:04 Dose: 40 mg Phenytoin (Dilantin) 100 mg IVP Q6H [facility] Last Admin: 04/03/17 12:20 Dose: 100 mg Polyethylene Glycol (Miralax) 17 gm PO BID [facility] Last Admin: 04/03/17 10:04 Dose: 17 gm Ramipril (Altace) 2.5 mg PO DAILY [facility] Last Admin: 04/03/17 10:05 Dose: 2.5 mg Physical Exam - Constitutional Appears: Non-toxic, No Acute Distress - Head Exam Head Exam: ATRAUMATIC, NORMOCEPHALIC - Eye Exam Eye Exam: PERRL. absent: Scleral icterus - ENT Exam ENT Exam: Mucous Membranes Dry Additional comments: trachea midline, ETT in place - Respiratory Exam Respiratory Exam: NORMAL BREATHING PATTERN (on vent). absent: Respiratory Distress - Cardiovascular Exam Cardiovascular Exam: RRR, +S1, +S2 - GI/Abdominal Exam GI & Abdominal Exam: Soft. absent: Distended, Firm, Guarding, Rebound, Rigid - Rectal Exam Rectal Exam: Deferred - Exam Additional comments: jones in place - Extremities Exam Extremities exam: Positive for: normal capillary refill, pedal edema. Negative for: calf tenderness - Back Exam Back exam: absent: CVA tenderness (L), CVA tenderness (R) - Neurological Exam Additional comments: occasionally responds to painful stimuli No cough reflex elicited No blink reflex elicited - Skin Skin Exam: Dry, Warm Results - Vital Signs Recent Vital Signs: Last Vital Signs Temp 99.5 F 04/03/17 13:01 Pulse 75 04/03/17 13:01 Resp 20 04/03/17 09:30 BP 128/56 L 04/03/17 13:01 Pulse Ox 95 04/03/17 13:01 - Labs Result Diagrams: 04/03/17 05:00 04/03/17 05:00 Labs: Laboratory Results - last 24 hr 04/02/17 04/02/17 04/03/17 11:24 17:19 00:11 WBC RBC Hgb Hct MCV MCH MCHC RDW Plt Count MPV Gran % Lymph % (Auto) Maury % (Auto) Eos % (Auto) Baso % (Auto) Gran # Lymph # Maury # Eos # Baso # PT INR pCO2 pO2 HCO3 ABG pH ABG Total CO2 ABG O2 Saturation ABG O2 Content ABG Base Excess ABG Hemoglobin ABG Carboxyhemoglobin POC ABG HHb (Measured) ABG Methemoglobin ABG O2 Capacity Hgb O2 Saturation FiO2 Sodium Potassium Chloride Carbon Dioxide Anion Gap BUN Creatinine Est GFR ( Amer) Est GFR (Non-Af Amer) POC Glucose (mg/dL) 229 H 190 H 196 H Random Glucose Calcium Total Bilirubin AST ALT Alkaline Phosphatase Total Protein Albumin Globulin Albumin/Globulin Ratio 04/03/17 04/03/17 04/03/17 05:00 05:00 05:00 WBC 10.6 D RBC 4.78 Hgb 13.3 L Hct 41.3 L MCV 86.4 MCH 27.8 MCHC 32.2 RDW 15.5 H Plt Count 184 MPV 11.3 H Gran % 68.5 H Lymph % (Auto) 16.4 L Maury % (Auto) 9.8 H Eos % (Auto) 5.1 H Baso % (Auto) 0.2 Gran # 7.26 H Lymph # 1.7 Maury # 1.0 H Eos # 0.5 Baso # 0.02 PT 12.2 H INR 1.13 H pCO2 pO2 HCO3 ABG pH ABG Total CO2 ABG O2 Saturation ABG O2 Content ABG Base Excess ABG Hemoglobin ABG Carboxyhemoglobin POC ABG HHb (Measured) ABG Methemoglobin ABG O2 Capacity Hgb O2 Saturation FiO2 Sodium 138 Potassium 4.2 Chloride 105 Carbon Dioxide 28 Anion Gap 9 L BUN 36 H Creatinine 1.1 Est GFR ( Amer) > 60 Est GFR (Non-Af Amer) > 60 POC Glucose (mg/dL) Random Glucose 174 H Calcium 9.3 Total Bilirubin 0.7 AST 71 H ALT 36 Alkaline Phosphatase 106 Total Protein 5.8 Albumin 2.8 L Globulin 3.0 Albumin/Globulin Ratio 0.9 L 04/03/17 04/03/17 05:09 05:30 WBC RBC Hgb Hct MCV MCH MCHC RDW Plt Count MPV Gran % Lymph % (Auto) Maury % (Auto) Eos % (Auto) Baso % (Auto) Gran # Lymph # Maury # Eos # Baso # PT INR pCO2 39 pO2 75.0 L HCO3 28.4 H ABG pH 7.47 H ABG Total CO2 29.6 H ABG O2 Saturation 96.8 ABG O2 Content 17.4 ABG Base Excess 4.5 H ABG Hemoglobin 13.2 ABG Carboxyhemoglobin 2.2 H POC ABG HHb (Measured) 3.1 ABG Methemoglobin 1.0 ABG O2 Capacity 18.0 Hgb O2 Saturation 93.6 L FiO2 40.0 Sodium Potassium Chloride Carbon Dioxide Anion Gap BUN Creatinine Est GFR ( Amer) Est GFR (Non-Af Amer) POC Glucose (mg/dL) 196 H Random Glucose Calcium Total Bilirubin AST ALT Alkaline Phosphatase Total Protein Albumin Globulin Albumin/Globulin Ratio Assessment & Plan - Assessment and Plan (Free Text) Assessment: 71M with vent dependency 2/2 anoxic brain injury from cardiac arrest Plan: Possible Trach and PEG Tuesday. Dr. Salas to D/W family tomorrow. D/W Dr. Dionte Gayle PGY3
--- NOTE | 2017-04-03 13:47 | PN ---
DATE: 04/03/2017 SUBJECTIVE: No reports of ventricular arrhythmia. The patient is still unresponsive on the ventilat or. PHYSICAL EXAMINATION: VITAL SIGNS: Blood pressure 129/55, heart rate 69, temperature 99.3, respirations 18. HEENT: Normocephalic. CHEST: Minimal rhonchi bilaterally. HEART: S1, S2 regular. EXTREMITIES: No edema. LABORATORIES: Hemoglobin and hematocrit 15.3 and 41.3. White count and platelet count 10.6 and 184, 000. Today's SMA-7: Sodium 138, potassium 4.2, chloride 105, CO2 of 28, glucose 174, BUN 36, creati nine 1.1. ASSESSMENT: 1. Status post cardiac arrest. 2. Anoxic encephalopathy. 3. Chronic obstructive lung disease. 4. Coronary artery disease, status post multiple coronary interventions in the past. 5. Brain mass with adjacent vasogenic edema. RECOMMENDATIONS: Continue current Altace 2.5 mg once a day, hydralazine 25 mg q.i.d., Dilantin 100 m g intravenously q. 6 hours, heparin 5000 units q. 8 hours, at 10 mg twice a day, Lopressor 25 mg twice a day, Zyvox 600 mg intravenously q. 12 hours. The plan is to place tracheostomy and gastrost fazal tube feeding prior to transferring the patient to LTAC subacute care facility. Andres Vides MD cc: [id number] TT: 04/03/2017 13:47:08 Confirmation # [id number] Dictation # [id number] mn
[2017-04-04 00:23] VITALS: RESP 21
[2017-04-04] MEDS: Insulin Reg-MEDIUM-Coverage SC SCH ×4 (00:49→17:49)
[2017-04-04] MEDS: Phenytoin 100 mg/2 ml Inj IVP SCH ×2 (00:55→05:52)
[2017-04-04 05:42] LABS: ARTERIAL BLOOD GAS HCO3 27.2 mmol/L (21-28); ARTERIAL BLOOD GAS O2 CAPACITY 17.6 mL/dl (16-24); ARTERIAL BLOOD GAS O2 CONTENT 16.9 ML/dl (15-23); ARTERIAL BLOOD GAS PH 7.42 (7.35-7.45); ARTERIAL BLOOD HGB O2 SAT 93.3 % (95.0-98.0); CARBOXYHEMOGLOBIN 2.1 % (0.5-1.5); HHB 3.8 % (0-5); METHEMOGLOBIN 0.9 % (0.0-3.0)
[2017-04-04 06:42] LABS: ADD MANUAL DIFF? NO
[2017-04-04 07:05] LABS: ALB/GLOB RATIO 0.9 (1.1-1.8); ALKALINE PHOSPHATASE 114 U/L (38-133); ALT/SGPT 36 U/L (7-56); AST/SGOT 70 U/L (15-59); BILIRUBIN,TOTAL 0.8 mg/dL (0.2-1.3); BLOOD UREA NITROGEN 39 mg/dL (7-21); CALCIUM 9.5 mg/dL (8.4-10.5); CARBON DIOXIDE 28 mmol/L (21-33); CHLORIDE 104 mmol/L (98-107); GFR AFRICAN-AMERICAN > 60; GLUCOSE,RANDOM 175 mg/dL (70-110); POTASSIUM 4.1 mmol/L (3.6-5.0); SODIUM 137 mmol/L (132-148); TOTAL PROTEIN 5.8 g/dL (5.8-8.3)
[2017-04-04 07:08] LABS: BASO # 0.02 K/mm3 (0.0-2.0); BASO % 0.1 % (0.0-3.0); EOS # 0.2 (0.0-0.7); EOS % 1.7 % (1.5-5.0); GRAN # 10.08 (1.4-6.5); GRAN % 72.7 % (50.0-68.0); HEMATOCRIT 41.7 % (42.0-52.0); LYMPH # 2.2 (1.2-3.4); LYMPH % 15.5 % (22.0-35.0); MEAN CELL VOLUME 86.3 fL (80.0-105.0); MEAN CORPUSCULAR HEMOGLOBIN 27.5 pg (25.0-35.0); MEAN CORPUSCULAR HGB CONC 31.9 g/dl (31.0-37.0); MEAN PLATELET VOLUME 11.6 fl (7.0-11.0); MONO # 1.4 (0.1-0.6); PLATELET COUNT 179 10^3/uL (120.0-450.0); RED CELL DISTRIBUTION WIDTH 15.7 % (11.5-14.5); WHITE BLOOD COUNT 13.9 10^3/ul (4.5-11.0)
--- NOTE | 2017-04-04 07:44 | PN ---
DATE: 04/04/2017(630am--720am) SUBJECTIVE: The patient remains on the ventilator. He is poorly responsive. He is not sedated (discussed with nurse): OBJECTIVE: VITAL SIGNS: Temperature is 97.7, pulse 63, respirations 21/21, blood pressure 128/65. HEENT: Normocephalic, atraumatic. No JVD. CARDIOVASCULAR: Positive S1, S2. No S3. LUNGS: Decreased breath sounds at the bases. Minimal rhonchi. No wheezing. EXTREMITIES: Mild edema. No cyanosis, no clubbing. GASTROINTESTINAL: Abdomen is soft, nondistended. Bowel sounds are positive. SKIN: No acute rash. NEUROLOGIC: Limited at the present time. PERTINENT LABORATORY DATA: Chest x-ray was done this morning and reviewed. The chest x-ray done this morning is very poor and very rotated in nature. There may be some increased haziness noted in the left lung, but this is hard to tell. There are no official results on the chart as of yet. Arterial blood gas was done on assist control of 21, tidal volume 450, FiO2 of 40%, PEEP 10. Results are: pH 7.42, pCO2 of 42, pO2 of 70. IMPRESSION: 1. Ventricular fibrillation arrest, status post cardiopulmonary resuscitation. 2. Respiratory failure. 3. Coronary artery disease. 4. Chronic obstructive pulmonary disease. 5. Probable aspiration pneumonia. 6. Encephalopathy. PLAN: The patient remains in the ICU and on the ventilator. He remains poorly responsive. He is not sedated. I did discuss the case with the night nurse at length. Unfortunately, the night nurse confirmed that the patient has not improved neurologically. I did review the chest x-ray from this morning. Again , it is a very poor rotated portable film. We are awaiting official results. I have also reviewed the arterial blood gas. There is now normalization of the pH. However, a mild increase in the alveolar arterial gradient remains. I will continue with the current ventilator settings for now. I did discuss the case with the at length last night. At this point in time, the is in favor of proceeding with tracheostomy and PEG placement. Inputs by Neurology and Cardiology are noted. The patient remains on antibiotic therapy as per infectious disease. Input by Dr. Simmons is noted. Unfortunately, the overall status/prognosis of this patient remains poor. I will discuss the above with the entire ICU Team in the next few moments. I will also discuss the above with Dr. Vargas later this morning. Sacha Hopkins MD cc: [phone] TT: 04/04/2017 07:44:11 Confirmation # [id number] Dictation # [id number] manpreet COULTER
--- NOTE | 2017-04-04 07:50 | CP.PCM.PN ---
<Naty Vallejo - Last Filed: 04/04/17 10:40> Subjective - Date & Time of Evaluation Date of Evaluation: 04/04/17 Time of Evaluation: 07:37 - Subjective Subjective: ICU Progress Note Patient seen and examined at bedside. There were no acute overnight events. Patient is opening eyes spontaneously, withdraws to pain. Patient is intubated and off sedation. ROS could not be obtained. Objective - Vital Signs/Intake and Output Vital Signs (last 24 hours): Temp Pulse Resp BP Pulse Ox 97.7 F 63 21 128/65 96 04/04/17 06:00 04/04/17 06:00 04/04/17 04:00 04/04/17 06:00 04/04/17 06:00 Intake and Output: 04/04/17 04/04/17 06:59 18:59 Intake Total 1470 Output Total 900 Balance 570 - Medications Medications: Current Medications Albuterol/Ipratropium (Duoneb 3 Mg/0.5 Mg (3 Ml) Ud) 3 ml IH [id number] [facility] Last Admin: 04/03/17 19:36 Dose: 3 ml Budesonide (Pulmicort Respules) 0.5 mg IH [id number] [facility] Last Admin: 04/03/17 19:36 Dose: 0.5 mg Heparin Sodium (Porcine) (Heparin) 5,000 units SC Q8 LOUISE PRN Reason: Protocol Last Admin: 04/04/17 05:21 Dose: 5,000 units Hydralazine HCl (Apresoline) 25 mg PO QID [facility] Last Admin: 04/03/17 21:25 Dose: 25 mg Linezolid (Zyvox 600mg/300ml D5w) 600 mg in 300 mls @ 200 mls/hr IVPB Q12 LOUISE PRN Reason: Protocol Stop: 04/06/17 10:01 Last Admin: 04/03/17 21:25 Dose: 200 mls/hr Insulin Human Regular (Humulin R Med) 0 units SC Q6 LOUISE PRN Reason: Protocol Last Admin: 04/04/17 05:18 Dose: 1 units Isosorbide Mononitrate (Ismo) 10 mg PO 0800,1500 [facility] Last Admin: 04/03/17 18:13 Dose: 10 mg Lorazepam (Ativan) 1 mg IVP Q6H PRN; Protocol PRN Reason: Seizure activity Last Admin: 03/28/17 08:00 Dose: 1 mg Metoprolol Tartrate (Lopressor) 25 mg PO BRKDIN [facility] Last Admin: 04/03/17 18:12 Dose: 25 mg Pantoprazole Sodium (Protonix Inj) 40 mg IVP DAILY [facility] Last Admin: 04/03/17 10:04 Dose: 40 mg Phenytoin (Dilantin) 100 mg IVP Q6H [facility] Last Admin: 04/04/17 05:52 Dose: 100 mg Polyethylene Glycol (Miralax) 17 gm PO BID [facility] Last Admin: 04/03/17 18:12 Dose: 17 gm Ramipril (Altace) 2.5 mg PO DAILY [facility] Last Admin: 04/03/17 10:05 Dose: 2.5 mg - Labs Labs: 04/04/17 05:45 04/04/17 05:45 PT 12.2 Seconds (9.9-11.8) H 04/03/17 05:00 INR 1.13 (0.93-1.08) H 04/03/17 05:00 APTT 27.5 Seconds (23.7-30.8) 04/01/17 06:35 - Constitutional Appears: No Acute Distress - Head Exam Head Exam: ATRAUMATIC, NORMAL INSPECTION, NORMOCEPHALIC - Eye Exam Eye Exam: Normal appearance, PERRL Pupil Exam: NORMAL ACCOMODATION, PERRL - ENT Exam ENT Exam: Mucous Membranes Moist - Respiratory Exam Respiratory Exam: Clear to Ausculation Bilateral, NORMAL BREATHING PATTERN. absent: Rales, Rhonchi, Wheezes - Cardiovascular Exam Cardiovascular Exam: REGULAR RHYTHM, +S1, +S2. absent: Gallop, Rubs, Murmur - GI/Abdominal Exam GI & Abdominal Exam: Soft, Normal Bowel Sounds. absent: Tenderness, Mass, Rebound - Extremities Exam Extremities Exam: Normal Inspection. absent: Calf Tenderness, Pedal Edema - Neurological Exam Neurological Exam: CN II-XII Intact - Skin Skin Exam: Dry, Normal Color, Warm Assessment and Plan - Assessment and Plan (Free Text) Assessment: This is a 71Y M with PMH HTN, DM, HLD, CAD s/p 3 stents, COPD, ARIELLE s/p cardiac arrest with ROSC and anoxic encephalopathy. Hypothermia protocol was initiated upon admission and has been warmed up. Patient noted to be in vegetative state. Plan: Neuro: Intubated- not sedated Anoxic encephalopathy s/p cardiac arrest Neuro consulted- recs appreciated Continue Phenytoin Maintain normothermia CV: Cardio consulted- recs appreciated Hemodynamically stable Resp: Maintain spO2>90% Protective lung ventilation strategy Continue PRVC with PS trial as tolerated GI: Continue Glucerna with goal of 60ml/hr through NG tube Miralax and Dulcolax for BM /Neprho: Maintain euvolemia Will continue to monitor electrolytes and replace as needed Heme: Hgb stable at this time Continue to monitor CBC ID: Afebrile, leukocytosis this AM ID consulted-recs appreciated Linezolid and Merrem Endo: Maintain euglycemia GI ppx: Pepcid IVP DVT ppx: Heparin SC q8h Dispo: Surgery consulted for trach and peg. Case seen, discussed and reviewed with attending. Alton Vallejo PGY1 <Gualberto PHAN,Zuhair H - Last Filed: 04/04/17 12:31> Objective - Vital Signs/Intake and Output Vital Signs (last 24 hours): Temp Pulse Resp BP Pulse Ox 98.1 F 61 21 103/57 L 97 04/04/17 11:00 04/04/17 11:00 04/04/17 04:00 04/04/17 11:00 04/04/17 11:00 Intake and Output: 04/04/17 04/04/17 06:59 18:59 Intake Total 1470 Output Total 900 Balance 570 - Medications Medications: Current Medications Albuterol/Ipratropium (Duoneb 3 Mg/0.5 Mg (3 Ml) Ud) 3 ml IH [id number] [facility] Last Admin: 04/04/17 08:12 Dose: 3 ml Budesonide (Pulmicort Respules) 0.5 mg IH [id number] [facility] Last Admin: 04/04/17 08:12 Dose: 0.5 mg Heparin Sodium (Porcine) (Heparin) 5,000 units SC Q8 [facility] PRN Reason: Protocol Last Admin: 04/04/17 05:21 Dose: 5,000 units Hydralazine HCl (Apresoline) 25 mg PO QID [facility] Last Admin: 04/04/17 10:09 Dose: 25 mg Linezolid (Zyvox 600mg/300ml D5w) 600 mg in 300 mls @ 200 mls/hr IVPB Q12 LOUISE PRN Reason: Protocol Stop: 04/06/17 10:01 Last Admin: 04/04/17 10:10 Dose: 200 mls/hr Meropenem 1g/NS 100mL IVPB (Meropenem 1g/Ns 100ml Ivpb) 1 gm in 100 mls @ 100 mls/hr IVPB Q8 LOUISE PRN Reason: Protocol Stop: 04/11/17 08:46 Last Admin: 04/04/17 10:11 Dose: 100 mls/hr Insulin Human Regular (Humulin R Med) 0 units SC Q6 LOUISE PRN Reason: Protocol Last Admin: 04/04/17 05:18 Dose: 1 units Isosorbide Mononitrate (Ismo) 10 mg PO 0800,1500 [facility] Last Admin: 04/04/17 08:03 Dose: 10 mg Lorazepam (Ativan) 1 mg IVP Q6H PRN; Protocol PRN Reason: Seizure activity Last Admin: 03/28/17 08:00 Dose: 1 mg Metoprolol Tartrate (Lopressor) 25 mg PO BRKDIN [facility] Last Admin: 04/04/17 08:02 Dose: Not Given Pantoprazole Sodium (Protonix Inj) 40 mg IVP DAILY [facility] Last Admin: 04/04/17 10:09 Dose: 40 mg Polyethylene Glycol (Miralax) 17 gm PO BID [facility] Last Admin: 04/04/17 10:08 Dose: 17 gm Ramipril (Altace) 2.5 mg PO DAILY [facility] Last Admin: 04/04/17 10:08 Dose: 2.5 mg - Labs Labs: 04/04/17 05:45 04/04/17 05:45 PT 12.2 Seconds (9.9-11.8) H 04/03/17 05:00 INR 1.13 (0.93-1.08) H 04/03/17 05:00 APTT 27.5 Seconds (23.7-30.8) 04/01/17 06:35 Attending/Attestation - Attestation I have personally seen and examined this patient.: Yes I have fully participated in the care of the patient.: Yes I have reviewed all pertinent clinical information, including history, physical exam and plan: Yes Notes (Text): 04/04/17 12:29 No acute events overnight S/P Cardiac arrest Awaiting Trach and PEG Remains on SBT trial daily x 2 hrs. Continue empiric abx for 1 week course per ID. Tube feeds continued DVT P PPI Neuro status unchanged. No further worsening or improvement. Stopped all seizure P just in case sedating his mental status. cc time 55 min
[2017-04-04] MEDS ORDERED: Bisacodyl 5mg EC Tab PO ONE (08:02)
[2017-04-04] MEDS: Budesonide 0.5 mg/2 ml Inhal Susp UD IH SCH ×2 (08:12→19:40)
[2017-04-04] MEDS: Albuterol-Ipratrop 3 mg / 0.5 (3 ml) UD IH SCH ×2 (08:12→19:40)
[2017-04-04] MEDS: POLYETHYLENE GLYCOL 3350 17 GM/Dose PACKET PO SCH ×2 (10:08→17:43)
[2017-04-04] MEDS: Linezolid 600 mg in D5W 300 ml 600 MG/300 ML BAG IVPB SCH ×2 (10:10→21:22)
[2017-04-04] MEDS: Meropenem 1g/NS 100mL IVPB 1 GM/100 ML PIGGYBACK IVPB SCH ×3 (10:11→21:21)
--- NOTE | 2017-04-04 10:26 | CP.PCM.PN ---
Subjective - Date & Time of Evaluation Date of Evaluation: 04/04/17 Time of Evaluation: 10:24 - Subjective Subjective: Surgery: Dr. Salas Patient remains in ICU, intubated and nonresponsive. No acute events overnight. Objective - Vital Signs/Intake and Output Vital Signs (last 24 hours): Temp Pulse Resp BP Pulse Ox 97.9 F 63 21 111/42 L 95 04/04/17 09:00 04/04/17 10:09 04/04/17 04:00 04/04/17 10:09 04/04/17 09:00 Intake and Output: 04/04/17 04/04/17 06:59 18:59 Intake Total 1470 Output Total 900 Balance 570 - Medications Medications: Current Medications Albuterol/Ipratropium (Duoneb 3 Mg/0.5 Mg (3 Ml) Ud) 3 ml IH [id number] [facility] Last Admin: 04/04/17 08:12 Dose: 3 ml Budesonide (Pulmicort Respules) 0.5 mg IH [id number] [facility] Last Admin: 04/04/17 08:12 Dose: 0.5 mg Heparin Sodium (Porcine) (Heparin) 5,000 units SC Q8 [facility]OU[facility] PRN Reason: Protocol Last Admin: 04/04/17 05:21 Dose: 5,000 units Hydralazine HCl (Apresoline) 25 mg PO QID [facility] Last Admin: 04/04/17 10:09 Dose: 25 mg Linezolid (Zyvox 600mg/300ml D5w) 600 mg in 300 mls @ 200 mls/hr IVPB Q12 [facility] PRN Reason: Protocol Stop: 04/06/17 10:01 Last Admin: 04/04/17 10:10 Dose: 200 mls/hr Meropenem 1g/NS 100mL IVPB (Meropenem 1g/Ns 100ml Ivpb) 1 gm in 100 mls @ 100 mls/hr IVPB Q8 [facility] PRN Reason: Protocol Stop: 04/11/17 08:46 Last Admin: 04/04/17 10:11 Dose: 100 mls/hr Insulin Human Regular (Humulin R Med) 0 units SC Q6 [facility] PRN Reason: Protocol Last Admin: 04/04/17 05:18 Dose: 1 units Isosorbide Mononitrate (Ismo) 10 mg PO 0800,1500 [facility] Last Admin: 04/04/17 08:03 Dose: 10 mg Lorazepam (Ativan) 1 mg IVP Q6H PRN; Protocol PRN Reason: Seizure activity Last Admin: 03/28/17 08:00 Dose: 1 mg Metoprolol Tartrate (Lopressor) 25 mg PO BRKDIN [facility] Last Admin: 04/04/17 08:02 Dose: Not Given Pantoprazole Sodium (Protonix Inj) 40 mg IVP DAILY [facility] Last Admin: 04/04/17 10:09 Dose: 40 mg Polyethylene Glycol (Miralax) 17 gm PO BID [facility] Last Admin: 04/04/17 10:08 Dose: 17 gm Ramipril (Altace) 2.5 mg PO DAILY [facility] Last Admin: 04/04/17 10:08 Dose: 2.5 mg - Labs Labs: 04/04/17 05:45 04/04/17 05:45 PT 12.2 Seconds (9.9-11.8) H 04/03/17 05:00 INR 1.13 (0.93-1.08) H 04/03/17 05:00 APTT 27.5 Seconds (23.7-30.8) 04/01/17 06:35 - Head Exam Head Exam: ATRAUMATIC, NORMOCEPHALIC - ENT Exam ENT Exam: Normal External Ear Exam (ET tube in place ) - Respiratory Exam Respiratory Exam: absent: Respiratory Distress Additional comments: on mechanical ventilation - Cardiovascular Exam Cardiovascular Exam: REGULAR RHYTHM. absent: Tachycardia - GI/Abdominal Exam GI & Abdominal Exam: Soft. absent: Distended, Tenderness - Skin Skin Exam: Dry, Warm Assessment and Plan - Assessment and Plan (Free Text) Assessment: 71M with respiratory failure and ventilator dependency 2/2 anoxic brain injury from cardiac arrest Plan: Possible Trach and PEG Tuesday. Dr. Salas to D/W family regarding wishes AKWhite PGY1
--- NOTE | 2017-04-04 10:58 | CP.PCM.PN ---
Subjective - Date & Time of Evaluation Date of Evaluation: 04/04/17 Time of Evaluation: 08:00 - Subjective Subjective: Intubated, withdraws from noxious stimuli. No acute events overnight. Objective - Vital Signs/Intake and Output Vital Signs (last 24 hours): Temp Pulse Resp BP Pulse Ox 97.9 F 63 21 111/42 L 95 04/04/17 09:00 04/04/17 10:09 04/04/17 04:00 04/04/17 10:09 04/04/17 09:00 Intake and Output: 04/04/17 04/04/17 06:59 18:59 Intake Total 1470 Output Total 900 Balance 570 - Medications Medications: Current Medications Albuterol/Ipratropium (Duoneb 3 Mg/0.5 Mg (3 Ml) Ud) 3 ml IH [id number] [facility] Last Admin: 04/04/17 08:12 Dose: 3 ml Budesonide (Pulmicort Respules) 0.5 mg IH [id number] [facility] Last Admin: 04/04/17 08:12 Dose: 0.5 mg Heparin Sodium (Porcine) (Heparin) 5,000 units SC Q8 [facility] PRN Reason: Protocol Last Admin: 04/04/17 05:21 Dose: 5,000 units Hydralazine HCl (Apresoline) 25 mg PO QID [facility] Last Admin: 04/04/17 10:09 Dose: 25 mg Linezolid (Zyvox 600mg/300ml D5w) 600 mg in 300 mls @ 200 mls/hr IVPB Q12 [facility]OU[facility] PRN Reason: Protocol Stop: 04/06/17 10:01 Last Admin: 04/04/17 10:10 Dose: 200 mls/hr Meropenem 1g/NS 100mL IVPB (Meropenem 1g/Ns 100ml Ivpb) 1 gm in 100 mls @ 100 mls/hr IVPB Q8 [facility]OU[facility] PRN Reason: Protocol Stop: 04/11/17 08:46 Last Admin: 04/04/17 10:11 Dose: 100 mls/hr Insulin Human Regular (Humulin R Med) 0 units SC Q6 [facility] PRN Reason: Protocol Last Admin: 04/04/17 05:18 Dose: 1 units Isosorbide Mononitrate (Ismo) 10 mg PO 0800,1500 [facility] Last Admin: 04/04/17 08:03 Dose: 10 mg Lorazepam (Ativan) 1 mg IVP Q6H PRN; Protocol PRN Reason: Seizure activity Last Admin: 03/28/17 08:00 Dose: 1 mg Metoprolol Tartrate (Lopressor) 25 mg PO BRKDIN [facility] Last Admin: 04/04/17 08:02 Dose: Not Given Pantoprazole Sodium (Protonix Inj) 40 mg IVP DAILY [facility] Last Admin: 04/04/17 10:09 Dose: 40 mg Polyethylene Glycol (Miralax) 17 gm PO BID [facility] Last Admin: 04/04/17 10:08 Dose: 17 gm Ramipril (Altace) 2.5 mg PO DAILY [facility] Last Admin: 04/04/17 10:08 Dose: 2.5 mg - Labs Labs: 04/04/17 05:45 04/04/17 05:45 PT 12.2 Seconds (9.9-11.8) H 04/03/17 05:00 INR 1.13 (0.93-1.08) H 04/03/17 05:00 APTT 27.5 Seconds (23.7-30.8) 04/01/17 06:35 - Constitutional Appears: No Acute Distress, Chronically Ill - Eye Exam Eye Exam: Normal appearance, PERRL - ENT Exam ENT Exam: Mucous Membranes Moist - Respiratory Exam Respiratory Exam: NORMAL BREATHING PATTERN - Cardiovascular Exam Cardiovascular Exam: REGULAR RHYTHM, +S1 - GI/Abdominal Exam GI & Abdominal Exam: Soft, Normal Bowel Sounds - Extremities Exam Extremities Exam: Normal Inspection, Pedal Edema - Neurological Exam Neurological Exam: Altered - Skin Skin Exam: Dry, Warm Assessment and Plan - Assessment and Plan (Free Text) Assessment: 71 year old male s/p cardiac arrest, anoxic encephalopathy, respiratory failure. The patient's and I had another detailed discussion regarding the burdens and ramifications of tracheotomy/ PEG / intermediate designer acute care. had expressed that she was considering withdrawal of life support in the near future. I explained that if this was her intent, it would be better to do so know rather than subject the patient to additional procedures. After more discussion, states that she is not ready to give up and wants to give him a chance, no matter how little hope there may be. She is intent on moving forward with PEG/trach. and acute care placement. Psychosocial support given. She will meet with director of social services to plan for transfer to an acute care facility. Time spent in discussion regarding goals of care, advance care planning and end of life counseling, 40 minutes
--- NOTE | 2017-04-04 11:24 | CP.PCM.PN ---
Subjective - Date & Time of Evaluation Date of Evaluation: 04/04/17 Time of Evaluation: 09:40 - Subjective Subjective: Patient continues to be on the ventilator and poorly responsive. No fevers overnight. Objective - Vital Signs/Intake and Output Vital Signs (last 24 hours): Temp Pulse Resp BP Pulse Ox 97.7 F 55 L 21 109/45 L 96 04/04/17 06:00 04/04/17 08:02 04/04/17 04:00 04/04/17 08:02 04/04/17 06:00 Intake and Output: 04/04/17 04/04/17 06:59 18:59 Intake Total 1470 Output Total 900 Balance 570 - Medications Medications: Current Medications Albuterol/Ipratropium (Duoneb 3 Mg/0.5 Mg (3 Ml) Ud) 3 ml IH [id number] [facility] Last Admin: 04/04/17 08:12 Dose: 3 ml Budesonide (Pulmicort Respules) 0.5 mg IH [id number] [facility] Last Admin: 04/04/17 08:12 Dose: 0.5 mg Heparin Sodium (Porcine) (Heparin) 5,000 units SC Q8 [facility]OUISE PRN Reason: Protocol Last Admin: 04/04/17 05:21 Dose: 5,000 units Hydralazine HCl (Apresoline) 25 mg PO QID [facility] Last Admin: 04/03/17 21:25 Dose: 25 mg Linezolid (Zyvox 600mg/300ml D5w) 600 mg in 300 mls @ 200 mls/hr IVPB Q12 [facility]OUISE PRN Reason: Protocol Stop: 04/06/17 10:01 Last Admin: 04/03/17 21:25 Dose: 200 mls/hr Meropenem 1g/NS 100mL IVPB (Meropenem 1g/Ns 100ml Ivpb) 100 mls @ 100 mls/hr IVPB Q8 LOUISE PRN Reason: Protocol Stop: 04/11/17 08:46 Insulin Human Regular (Humulin R Med) 0 units SC Q6 [facility]OU[facility] PRN Reason: Protocol Last Admin: 04/04/17 05:18 Dose: 1 units Isosorbide Mononitrate (Ismo) 10 mg PO 0800,1500 [facility] Last Admin: 04/04/17 08:03 Dose: 10 mg Lorazepam (Ativan) 1 mg IVP Q6H PRN; Protocol PRN Reason: Seizure activity Last Admin: 03/28/17 08:00 Dose: 1 mg Metoprolol Tartrate (Lopressor) 25 mg PO BRKDIN [facility] Last Admin: 04/04/17 08:02 Dose: Not Given Pantoprazole Sodium (Protonix Inj) 40 mg IVP DAILY [facility] Last Admin: 04/03/17 10:04 Dose: 40 mg Phenytoin (Dilantin) 100 mg IVP Q6H [facility] Last Admin: 04/04/17 05:52 Dose: 100 mg Polyethylene Glycol (Miralax) 17 gm PO BID [facility] Last Admin: 04/03/17 18:12 Dose: 17 gm Ramipril (Altace) 2.5 mg PO DAILY [facility] Last Admin: 04/03/17 10:05 Dose: 2.5 mg - Labs Labs: 04/04/17 05:45 04/04/17 05:45 PT 12.2 Seconds (9.9-11.8) H 04/03/17 05:00 INR 1.13 (0.93-1.08) H 04/03/17 05:00 APTT 27.5 Seconds (23.7-30.8) 04/01/17 06:35 - Constitutional Appears: Other (Intubated and sedated) - ENT Exam Additional comments: ET tube in place - Neck Exam Neck Exam: absent: Meningismus - Respiratory Exam Respiratory Exam: Decreased Breath Sounds - Cardiovascular Exam Cardiovascular Exam: +S1, +S2 - GI/Abdominal Exam GI & Abdominal Exam: Soft. absent: Tenderness Assessment and Plan - Assessment and Plan (Free Text) Plan: Assessment Systemic Inflammatory Response Syndrome (leukocytosis and hypothermia) probably due to cardiorespiratory arrest, R/O acute coronary syndrome; sepsis due to probable aspiration pneumonia acute on chronic renal failure CAD S/P PCI chronic CHF DM HTN hyothyroidism history of right arm surgery Plan continue Merrem (day 8) and Zyvox (day 6) - repeat blood cx are negative; CXR shows bilateral infiltrates PCT is elevated because of the renal failure; reviewed Cardiology and Pulmonary recommendations will continue to monitor clinically Patient continues to be in critical condition and overall prognosis is poor discussed EEG findings with Neurology and it is compatible with anoxic brain injury
--- NOTE | 2017-04-04 11:30 | RAD ---
HISTORY: f/u COMPARISON: 04/03/2017 FINDINGS: Endotracheal tube terminates 6.4 cm proximal to the braydon. The nasogastric tube terminates in the stomach. The left PICC line terminates in the SVC. LUNGS: The right lung is clear. There is haziness in the left lower lobe. PLEURA: No significant right pleural effusion identified, no pneumothorax apparent. CARDIOVASCULAR: Normal. OSSEOUS STRUCTURES: No significant abnormalities. VISUALIZED UPPER ABDOMEN: Normal. OTHER FINDINGS: None. IMPRESSION: Suspect layering left pleural effusion.
--- NOTE | 2017-04-04 13:20 | CP.PCM.PN ---
Subjective - Date & Time of Evaluation Date of Evaluation: 04/04/17 Time of Evaluation: 07:30 - Subjective Subjective: Internal Medicine Progress Note for Dr. Vargas/Dr. Escalante service Patient seen and examined at bedside in the ICU. Today is hospital day 9. Patient remains intubated, off sedation but minimally responsive, only to reflex testing and withdrawal from noxious stimuli, so ROS remains unobtainable. Breathing at vent rate only during exam. After thorough discussion between medicine team and patient's , confirmed that the patient is to remain full code and is to undergo Trach and PEG tube placement, in accordance with their amish beliefs. states that this is the decision made by her (the patient) when discussing this with her prior to this event. As per Surgery, will likely go for Trach/PEG tomorrow (04/05/17). Objective - Vital Signs/Intake and Output Vital Signs (last 24 hours): Temp Pulse Resp BP Pulse Ox 98.1 F 61 21 103/57 L 97 04/04/17 11:00 04/04/17 11:00 04/04/17 04:00 04/04/17 11:00 04/04/17 11:00 Intake and Output: 04/04/17 04/04/17 06:59 18:59 Intake Total 1470 Output Total 900 Balance 570 - Medications Medications: Current Medications Albuterol/Ipratropium (Duoneb 3 Mg/0.5 Mg (3 Ml) Ud) 3 ml IH [id number] [facility] Last Admin: 04/04/17 08:12 Dose: 3 ml Budesonide (Pulmicort Respules) 0.5 mg IH [id number] [facility] Last Admin: 04/04/17 08:12 Dose: 0.5 mg Heparin Sodium (Porcine) (Heparin) 5,000 units SC Q8 [facility] PRN Reason: Protocol Last Admin: 04/04/17 05:21 Dose: 5,000 units Hydralazine HCl (Apresoline) 25 mg PO QID [facility] Last Admin: 04/04/17 10:09 Dose: 25 mg Linezolid (Zyvox 600mg/300ml D5w) 600 mg in 300 mls @ 200 mls/hr IVPB Q12 [facility] PRN Reason: Protocol Stop: 04/06/17 10:01 Last Admin: 04/04/17 10:10 Dose: 200 mls/hr Meropenem 1g/NS 100mL IVPB (Meropenem 1g/Ns 100ml Ivpb) 1 gm in 100 mls @ 100 mls/hr IVPB Q8 [facility] PRN Reason: Protocol Stop: 04/11/17 08:46 Last Admin: 04/04/17 10:11 Dose: 100 mls/hr Insulin Human Regular (Humulin R Med) 0 units SC Q6 [facility] PRN Reason: Protocol Last Admin: 04/04/17 12:35 Dose: 3 units Isosorbide Mononitrate (Ismo) 10 mg PO 0800,1500 [facility] Last Admin: 04/04/17 08:03 Dose: 10 mg Lorazepam (Ativan) 1 mg IVP Q6H PRN; Protocol PRN Reason: Seizure activity Last Admin: 03/28/17 08:00 Dose: 1 mg Metoprolol Tartrate (Lopressor) 25 mg PO BRKDIN [facility] Last Admin: 04/04/17 08:02 Dose: Not Given Pantoprazole Sodium (Protonix Inj) 40 mg IVP DAILY [facility] Last Admin: 04/04/17 10:09 Dose: 40 mg Polyethylene Glycol (Miralax) 17 gm PO BID [facility] Last Admin: 04/04/17 10:08 Dose: 17 gm Ramipril (Altace) 2.5 mg PO DAILY [facility] Last Admin: 04/04/17 10:08 Dose: 2.5 mg - Labs Labs: 04/04/17 05:45 04/04/17 05:45 PT 12.2 Seconds (9.9-11.8) H 04/03/17 05:00 INR 1.13 (0.93-1.08) H 04/03/17 05:00 APTT 27.5 Seconds (23.7-30.8) 04/01/17 06:35 - Constitutional Appears: Other (Intubated but not sedated, ill-appearing, minimally responsive, rare spontaneous movements (primarily twitches), no purposeful movements, withdraws only from noxious stimuli) - Head Exam Head Exam: ATRAUMATIC, NORMOCEPHALIC - Eye Exam Eye Exam: Normal appearance. absent: Conjunctival injection, EOMI (not following commands, no avoidance of direct light challenge for PERRL assessment) , Scleral icterus Pupil Exam: absent: Irregular, Unequal Additional comments: pupils fixed and pinpoint, minimally responsive bilaterally to direct light challenge for PERRL assessment - ENT Exam ENT Exam: Mucous Membranes Moist - Neck Exam Additional comments: Trachea midline No spontaneous head movements, but passive ROM appears fully intact, not holding head rigidly - Respiratory Exam Additional comments: Intubated, on mechanical ventilation of 40% FiO2, 8 Peep, 21 RR, and 450 TV Not overbreathing the vent, only at vent rate during exam Mild diffuse crackles in all mclean ausculated No wheezes or ronchi Breath sounds present in all ausculated mclean anteriorly and laterally - Cardiovascular Exam Cardiovascular Exam: REGULAR RHYTHM, RRR, +S1, +S2. absent: Bradycardia, Tachycardia, Irregular Rhythm, +S4 Additional comments: Difficult to auscultate heart sounds due to prominent breath sounds on ventilator - GI/Abdominal Exam GI & Abdominal Exam: Soft, Normal Bowel Sounds. absent: Distended, Firm, Rigid , Diminished Bowel Sounds, Hyperactive Bowel Sounds, Hypoactive Bowel Sounds - Rectal Exam Rectal Exam: Deferred - Extremities Exam Additional comments: Pitting edema +1-2 from feet to inferior to patellar tendon bilaterally, trace - +1 pitting edema above knees to mid-thigh bilaterally No knee swelling/effusion bilaterally +2 radial pulses bilaterally, unable to palpate dorsalis pedis or posterior tibial pulses No spontaneous movement noted during exam of bilateral upper or lower extremities, holding all extremities limp - Neurological Exam Additional comments: Intubated but not sedated Withdraws from noxious stimuli (i.e. sternal rub) only, no responsiveness to non -noxious physical stimuli or verbal stimuli Bilateral patellar reflexes intact No myoclonic foot jerk bilaterally - Psychiatric Exam Additional comments: Unable to assess due to unresponsive state - Skin Skin Exam: Dry, Intact, Normal Color (some age related changes, otherwise normal coloring), Warm Assessment and Plan - Assessment and Plan (Free Text) Assessment: This is a 71 yo M with PMH of HTN, DM, HLD, CAD s/p 3 stents, COPD, and ARIELLE s/p cardiac arrest with ROSC. S/p Hypothermia protocol. Appears to have suffered Anoxic encephalopathy 2/2 cardiac arrest with no likelihood of meaningful recovery. Pending Trach/PEG placement as per (POA) on the basis of patient's stated wishes. Will likely be transferred to LTAC after placement of Trach/PEG. Plan: 1) Anoxic encephalopathy 2/2 cardiac arrest -Found down unresponsive in the field in VFib, ROSC in the field after CPR with 3 shocks, 1x epinephrine, 300mg Amiodarone x1, and intubation -Unresponsive since arrest despite regaining normal sinus rhythm -S/p hypothermia protocol, initiated after arrival by ICU and Cardiology teams and since discontinued -EEG results revealed presence of bursts of myoclonic activity followed by periods of slowing consistent with underlying anoxic encephalopathy -Repeat EEG showed wave bursts of myoclonic activity which correlates with poor prognosis -Continue with neurochecks -CT head reviewed and revealed 3cm mass in the left frontal lobe with vasogenic edema -MRI Brain reviewed; revealed extra-axial mass of ~2cm consistent with meningioma; see full report -Continue with keppra and phenytoin per neurology recommendations -Blood and urine cultures negative; procalcitonin was elevated -Continue with meropenem and vancomycin per ID recommendations -Patient started on enteral feeds with jevity @60cc/hr, remains intubated on PRVC 450/40%/21 RR/8 Peep; pending Trach/PEG -Neuro (Dr. Ni Mills) consulted, appreciate all recs; continue seizure ppx, will need Trach/PEG and likely LTAC, signed off -Palliative following (Augusta Clay), appreciate all help -Surgery (Dr. Salas) consulted for Trach/PEG; possible placement tomorrow (04/05/17) 2) Cardiogenic edema -CXR reviewed and revealed pulmonary edema with right greater than left -Remains intubated on PRVC 450/40%/21 RR/8 Peep; pending Trach/PEG -Echocardiogram revealed LVEF 74%, but on dobutamine drip at the time of echo, so results likely skewed -Continue ramipril/hydralazine for afterload reduction, imdur for preload reduction -Blood and urine cultures negative; procalcitonin was elevated -Continue with meropenem and vancomycin per ID recommendations -Cardio (Dr. Luu) following, appreciate all recs -Pulm (Dr. Godoy) following, appreciate all recs 3) Acute kidney injury -Acute kidney injury appears to be resolving; Continue to monitor I's and O's 4) CAD -Continue Ramapril, Metoprolol, and Imdur -Cardio (Dr. Luu) following, appreciate all recs 5) DM type 2 -On enteral feeds -Continue with ISS; fingersticks ACHS 6) HLD -receiving enteral feeds, jevity @60cc/hr 7) Hx of ARIELLE and COPD -Remains intubated on PRVC 450/40%/21 RR/8 Peep; pending Trach/PEG -CXR reviewed and revealed pulmonary edema with right greater than left -Continue Budesonide and Duonebs q12 for COPD -Pulm (Dr. Godoy) consulted, appreciate all recs Dispo: ICU pending trach/peg, likely d/c to LTAC pending placement after trach/ peg, Grim prognosis FEN: jevity @60cc/hr Access: Peripheral IVs, OGT, ETT, PICC, pending Trach/Peg placement Consults: ID, Pulm, Neuro (signed off), Cardio, ICU, Palliative, IR (for PICC placement) Ppx: Protonix for GI, Heparin for DVT Code Status: as per (POA), in accordance with previously discussed wishes of the patient, he is to remain full code despite the prognosis, due to personal amish beliefs Patient seen and discussed with attending, Dr. Vargas.
[2017-04-05 05:14] LABS: ARTERIAL BLOOD GAS HCO3 29.1 mmol/L (21-28); ARTERIAL BLOOD GAS O2 CAPACITY 17.3 mL/dl (16-24); ARTERIAL BLOOD GAS O2 CONTENT 17.1 ML/dl (15-23); ARTERIAL BLOOD GAS PH 7.47 (7.35-7.45); ARTERIAL BLOOD HGB O2 SAT 95.8 % (95.0-98.0); CARBOXYHEMOGLOBIN 1.9 % (0.5-1.5); HHB 1.1 % (0-5); METHEMOGLOBIN 1.3 % (0.0-3.0)
[2017-04-05] MEDS: Insulin Reg-MEDIUM-Coverage SC SCH ×4 (07:00→18:34)
[2017-04-05] MEDS: Albuterol-Ipratrop 3 mg / 0.5 (3 ml) UD IH SCH ×2 (07:10→20:22)
[2017-04-05] MEDS: Budesonide 0.5 mg/2 ml Inhal Susp UD IH SCH ×2 (07:10→20:22)
[2017-04-05 07:17] LABS: ADD MANUAL DIFF? NO
[2017-04-05 07:26] LABS: BASO # 0.02 K/mm3 (0.0-2.0); BASO % 0.2 % (0.0-3.0); EOS # 0.3 (0.0-0.7); EOS % 2.2 % (1.5-5.0); GRAN # 9.68 (1.4-6.5); GRAN % 74.6 % (50.0-68.0); HEMATOCRIT 40.5 % (42.0-52.0); LYMPH # 1.9 (1.2-3.4); LYMPH % 14.6 % (22.0-35.0); MEAN CELL VOLUME 85.1 fL (80.0-105.0); MEAN CORPUSCULAR HEMOGLOBIN 26.9 pg (25.0-35.0); MEAN CORPUSCULAR HGB CONC 31.6 g/dl (31.0-37.0); MONO # 1.1 (0.1-0.6); MONO % 8.4 % (1.0-6.0); PLATELET COUNT 176 10^3/uL (120.0-450.0); RED CELL DISTRIBUTION WIDTH 15.5 % (11.5-14.5)
--- NOTE | 2017-04-05 07:41 | CP.PCM.PN ---
<Naty Vallejo - Last Filed: 04/05/17 11:03> Subjective - Date & Time of Evaluation Date of Evaluation: 04/05/17 Time of Evaluation: 07:38 - Subjective Subjective: ICU Progress Note Patient seen and examined at bedside. There were no acute overnight events. Yesterday patient had BM. He is intubated and not sedated. He responds to pain stimuli, but ROS could not be obtained. Patient is planned for trach and peg this AM. Objective - Vital Signs/Intake and Output Vital Signs (last 24 hours): Temp Pulse Resp BP Pulse Ox 98.4 F 68 21 124/96 H 95 04/05/17 01:00 04/05/17 01:00 04/05/17 07:17 04/05/17 01:00 04/05/17 07:17 - Medications Medications: Current Medications Albuterol/Ipratropium (Duoneb 3 Mg/0.5 Mg (3 Ml) Ud) 3 ml IH [id number] [facility] Last Admin: 04/05/17 07:10 Dose: 3 ml Budesonide (Pulmicort Respules) 0.5 mg IH [id number] [facility] Last Admin: 04/05/17 07:10 Dose: 0.5 mg Heparin Sodium (Porcine) (Heparin) 5,000 units SC Q8 [facility] PRN Reason: Protocol Last Admin: 04/04/17 14:04 Dose: 5,000 units Hydralazine HCl (Apresoline) 25 mg PO QID [facility] Last Admin: 04/04/17 21:20 Dose: 25 mg Linezolid (Zyvox 600mg/300ml D5w) 600 mg in 300 mls @ 200 mls/hr IVPB Q12 [facility] PRN Reason: Protocol Stop: 04/06/17 10:01 Last Admin: 04/04/17 21:22 Dose: 200 mls/hr Meropenem 1g/NS 100mL IVPB (Meropenem 1g/Ns 100ml Ivpb) 1 gm in 100 mls @ 100 mls/hr IVPB Q8 [facility] PRN Reason: Protocol Stop: 04/11/17 08:46 Last Admin: 04/04/17 21:21 Dose: 100 mls/hr Insulin Human Regular (Humulin R Med) 0 units SC Q6 [facility] PRN Reason: Protocol Last Admin: 04/05/17 00:00 Dose: Not Given Isosorbide Mononitrate (Ismo) 10 mg PO 0800,1500 [facility] Last Admin: 04/04/17 14:04 Dose: 10 mg Lorazepam (Ativan) 1 mg IVP Q6H PRN; Protocol PRN Reason: Seizure activity Last Admin: 03/28/17 08:00 Dose: 1 mg Metoprolol Tartrate (Lopressor) 25 mg PO BRKDIN [facility] Last Admin: 04/04/17 16:33 Dose: 25 mg Pantoprazole Sodium (Protonix Inj) 40 mg IVP DAILY [facility] Last Admin: 04/04/17 10:09 Dose: 40 mg Polyethylene Glycol (Miralax) 17 gm PO BID [facility] Last Admin: 04/04/17 17:43 Dose: 17 gm Ramipril (Altace) 2.5 mg PO DAILY [facility] Last Admin: 04/04/17 10:08 Dose: 2.5 mg - Labs Labs: 04/04/17 05:45 04/04/17 05:45 PT 12.2 Seconds (9.9-11.8) H 04/03/17 05:00 INR 1.13 (0.93-1.08) H 04/03/17 05:00 APTT 27.5 Seconds (23.7-30.8) 04/01/17 06:35 - Constitutional Appears: No Acute Distress - Head Exam Head Exam: ATRAUMATIC, NORMAL INSPECTION, NORMOCEPHALIC - Eye Exam Eye Exam: Normal appearance, PERRL Pupil Exam: PERRL - ENT Exam ENT Exam: Mucous Membranes Moist - Neck Exam Neck Exam: Full ROM - Respiratory Exam Respiratory Exam: Clear to Ausculation Bilateral, NORMAL BREATHING PATTERN. absent: Rales, Rhonchi, Wheezes - Cardiovascular Exam Cardiovascular Exam: REGULAR RHYTHM, +S1, +S2. absent: Gallop, Rubs, Murmur - GI/Abdominal Exam GI & Abdominal Exam: Soft, Normal Bowel Sounds. absent: Tenderness, Hyperactive Bowel Sounds, Mass, Rebound - Extremities Exam Extremities Exam: Pedal Edema. absent: Calf Tenderness - Neurological Exam Neurological Exam: CN II-XII Intact Additional comments: Withdraw to pain stimuli in all 4 extremities. - Skin Skin Exam: Dry, Normal Color, Warm Assessment and Plan - Assessment and Plan (Free Text) Assessment: This is a 71Y M with PMH HTN, DM, HLD, CAD s/p 3 stents, COPD, ARIELLE s/p cardiac arrest with ROSC and anoxic encephalopathy. Hypothermia protocol was initiated upon admission and has been warmed up. Patient noted to have brain stem reflexes , but vegetative state. Plan is for trach and peg today. Plan: Neuro: Anoxic encephalopathy s/p cardiac arrest Intubated, no sedation Seizure meds d/c yesterday No change in neuro status Continue to maintain normothermia CV: HD stable at this time Cardio consulted- recs appreciated Continue BP meds Resp: Will get trach this am as per surgery Maintain spO2>90% Protective lung ventilation strategy Continue PRVC with PS trial as tolerated GI: Peg placement this AM Will restart [place] as tolerated after peg placement Miralax for BM Continue to monitor output /Neprho: Continue to Maintain euvolemia Will continue to monitor electrolytes and replace as needed Heme: Hgb stable- no overt signs of bleeding Continue to monitor CBC ID: Afebrile, leukocytosis this AM ID consulted-recs appreciated Linezolid and Merrem Endo: Maintain euglycemia GI ppx: Pepcid IVP DVT ppx: Heparin SC q8h- held for surgery-will restart Dispo: Trach and peg then awaiting LTAC placement. Case seen, discussed and reviewed with attending. Alton Vallejo PGY1 <Rom Lao - Last Filed: 04/05/17 18:57> Objective - Vital Signs/Intake and Output Vital Signs (last 24 hours): Temp Pulse Resp BP Pulse Ox 99.0 F 78 21 120/55 L 94 L 04/05/17 18:00 04/05/17 18:00 04/05/17 13:28 04/05/17 18:00 04/05/17 18:00 Intake and Output: 04/05/17 04/05/17 06:59 18:59 Intake Total 1020 940 Output Total 1000 540 Balance 20 400 - Medications Medications: Current Medications Albuterol/Ipratropium (Duoneb 3 Mg/0.5 Mg (3 Ml) Ud) 3 ml IH [id number] [facility] Last Admin: 04/05/17 07:10 Dose: 3 ml Budesonide (Pulmicort Respules) 0.5 mg IH [id number] [facility] Last Admin: 04/05/17 07:10 Dose: 0.5 mg Heparin Sodium (Porcine) (Heparin) 5,000 units SC Q8 [facility] PRN Reason: Protocol Last Admin: 04/04/17 14:04 Dose: 5,000 units Hydralazine HCl (Apresoline) 25 mg PO QID [facility] Last Admin: 04/05/17 17:11 Dose: 25 mg Linezolid (Zyvox 600mg/300ml D5w) 600 mg in 300 mls @ 200 mls/hr IVPB Q12 [facility] PRN Reason: Protocol Stop: 04/06/17 10:01 Last Admin: 04/05/17 10:55 Dose: 200 mls/hr Meropenem 1g/NS 100mL IVPB (Meropenem 1g/Ns 100ml Ivpb) 1 gm in 100 mls @ 100 mls/hr IVPB Q8 [facility] PRN Reason: Protocol Stop: 04/11/17 08:46 Last Admin: 04/05/17 14:02 Dose: 100 mls/hr Dextrose (Dextrose 5% In Water 1000 Ml) 1,000 mls @ 30 mls/hr IV .Q24H [facility] Last Admin: 04/05/17 17:12 Dose: 30 mls/hr Insulin Human Regular (Humulin R Med) 0 units SC Q6 [facility] PRN Reason: Protocol Last Admin: 04/05/17 18:34 Dose: Not Given Isosorbide Mononitrate (Ismo) 10 mg PO 0800,1500 [facility] Last Admin: 04/05/17 16:24 Dose: 10 mg Lorazepam (Ativan) 1 mg IVP Q6H PRN; Protocol PRN Reason: Seizure activity Last Admin: 03/28/17 08:00 Dose: 1 mg Metoprolol Tartrate (Lopressor) 25 mg PO BRKDIN [facility] Last Admin: 04/05/17 16:25 Dose: 25 mg Pantoprazole Sodium (Protonix Inj) 40 mg IVP DAILY [facility] Last Admin: 04/05/17 10:53 Dose: 40 mg Polyethylene Glycol (Miralax) 17 gm PO BID [facility] Last Admin: 04/05/17 17:12 Dose: 17 gm Ramipril (Altace) 2.5 mg PO DAILY [facility] Last Admin: 04/05/17 10:49 Dose: 2.5 mg - Labs Labs: 04/05/17 06:30 04/05/17 06:30 PT 12.2 Seconds (9.9-11.8) H 04/03/17 05:00 INR 1.13 (0.93-1.08) H 04/03/17 05:00 APTT 27.5 Seconds (23.7-30.8) 04/01/17 06:35 Addendum Addendum: 04/05/17 18:56 patient was seen, examined and discussed at bedside with Dr. Vallejo. Her note reflects my exam, assessment and plan. Meds/Labs/ONE reviewed. 71 yo male with anoxic brain injury after cardiac arrest. Going for trach and PEG. ccm time 40 min
[2017-04-05 07:44] LABS: ALB/GLOB RATIO 0.9 (1.1-1.8); ALKALINE PHOSPHATASE 115 U/L (38-133); ALT/SGPT 39 U/L (7-56); AST/SGOT 69 U/L (15-59); BLOOD UREA NITROGEN 36 mg/dL (7-21); CALCIUM 9.3 mg/dL (8.4-10.5); CARBON DIOXIDE 28 mmol/L (21-33); CHLORIDE 104 mmol/L (98-107); GFR AFRICAN-AMERICAN > 60; GLUCOSE,RANDOM 136 mg/dL (70-110); POTASSIUM 4.1 mmol/L (3.6-5.0); SODIUM 138 mmol/L (132-148); TOTAL PROTEIN 5.9 g/dL (5.8-8.3)
[2017-04-05] MEDS ORDERED: Lidocaine 1% Inj (20ml) ONE (07:48)
[2017-04-05] MEDS ORDERED: Bupivacaine 0.5% Inj(30mL) ONE (07:48)
[2017-04-05] MEDS ORDERED: Propofol 10 mg/ml Inj (20 ML) ONE (08:07)
[2017-04-05] MEDS ORDERED: Midazolam 2 MG/2 ML VIAL ONE (08:07)
[2017-04-05] MEDS: Meropenem 1g/NS 100mL IVPB 1 GM/100 ML PIGGYBACK IVPB SCH ×3 (08:08→21:35)
[2017-04-05] MEDS ORDERED: Rocuronium 10 mg/ml (5 ml) ONE ×2 (08:08→09:11)
--- NOTE | 2017-04-05 08:41 | PN ---
DATE: 04/04/2017 REASON FOR CONSULTATION AND FOLLOWUP: Cardiac evaluation, status post CPR, cardiac arrest, possible anoxic encephalopathy. No further episode of arrhythmia noted. Not responding to verbal stimuli, un responsive on vent. BRIEF CLINICAL HISTORY: This is a 71-year-old male with past medical history significant for COPD, o bstructive sleep apnea, multiple PTCAs, who collapsed at home, brought here, possible anoxic encephal opathy. Initially, the patient had a VT V-fib arrest. Since the patient is here stable, no further arrhythmia noted. PHYSICAL EXAMINATION: VITAL SIGNS: Temperature afebrile, heart rate 6____, blood pressure ____. HEENT: PERRLA. Extraocular muscles intact. NECK: Supple. No carotid bruits. No thyromegaly. CHEST: Clear to auscultation. HEART: S1, S2 regular. ABDOMEN: Soft. EXTREMITIES: Clubbing and cyanosis negative. LABORATORY DATA: Blood workup as follows: WBC 13.____, hemoglobin 13.____, hematocrit 41.7, platele t count 179. Chemistry shows sodium 137, potassium 4.____, chloride 104, carbon dioxide 28, anion ga p of 9, BUN 39, creatinine 1.1. IMPRESSION: Status post cardiopulmonary resuscitation, possible anoxic encephalopathy, cardiac arres t, status post a ventricular tachycardia ventricular fibrillation arrest, suddenly collapsed. Haro ry artery disease and multiple stents, obstructive sleep apnea, brain mass with adjacent vasogenic ed jessica. RECOMMENDATION: Continue supportive care. Continue antihypertensive medication. Continue NG feedin g. Continue free fluid through the PEG, waiting for ____. Continue free fluid through the NG tube _ ___. Continue antibiotic, continue low-dose beta-brayan. Continue low-dose brayan, waiting for PE G ____. ____. Thank you, ____, for providing the opportunity in taking care of the patient. Paulette Luu MD cc: [id number] TT: 04/04/2017 11:40:54 Confirmation # [id number] Dictation # [id number] manpreet
--- NOTE | 2017-04-05 09:22 | RAD ---
HISTORY: f/u COMPARISON: Comparison chest 04/04/2017 FINDINGS: LUNGS: In situ ETT, tip of which appears to lie approximately 7.8 cm above braydon however note that the braydon is poorly delineated on this exam in situ left-sided PICC line with tip the SVC unchanged. NGT is present, tip of which is poorly visualized distal aspect and tip poorly visualized due to underpenetration as well. . Suspect small right and tiny left-sided effusions. Mild bibasilar atelectasis also felt be present. Central pulmonary vasculature appears somewhat less congested. PLEURA: No significant pleural effusion identified, no pneumothorax apparent. CARDIOVASCULAR: Heart remains enlarged. OSSEOUS STRUCTURES: No significant abnormalities. VISUALIZED UPPER ABDOMEN: Normal. OTHER FINDINGS: None. IMPRESSION: ETT and PICC line as above. In situ NGT, the distal aspect and tip of which are poorly visualized due to underpenetration. Cardiomegaly. Suspect mild central pulmonary vascular congestion bibasilar atelectasis right greater than left. Suspect small right-sided and tiny left effusions. .
--- NOTE | 2017-04-05 09:38 | PN ---
DATE: 04/05/2017(700am--750am) SUBJECTIVE: The patient remains on the ventilator. He remains poorly responsive. He is not sedated - discuss with nurse. PHYSICAL EXAMINATION: VITAL SIGNS: Temperature is 98.4, pulse 68, respirations 21/21, blood pressure 124/96. HEENT: Normocephalic, atraumatic. No JVD. CARDIOVASCULAR: Positive S1, S2. No S3. LUNGS: Decreased breath sounds at the bases. Minimal/less rhonchi. No wheezing. EXTREMITIES: Mild edema. No cyanosis, no clubbing. GASTROINTESTINAL: Abdomen is soft, nondistended. Bowel sounds are positive. SKIN: No acute rash. NEUROLOGIC: Limited at the present time. PERTINENT LABORATORY DATA: Chest x-ray was done this morning and reviewed. Compared to yesterday's film, today's film is improved with decreased pulmonary infiltrates. Arterial blood gas was done on assist control 21, tidal volume 450 , FiO2 40%, PEEP 10. Results are: pH 7.47, pCO2 40, pO2 of 114. IMPRESSION: 1. Ventricular fibrillation arrest, status post cardiopulmonary resuscitation. 2. Respiratory failure. 3. Coronary artery disease. 4. Chronic obstructive pulmonary disease. 5. Probable aspiration pneumonia. 6. Encephalopathy. PLAN: The patient remains in the ICU and on the ventilator. He remains poorly responsive. He is not sedated. I did discuss the case with the night nurse at length. Unfortunately, the night nurse confirms that the patient has not improved neurologically. I did review the chest x-ray from this morning. Today 's film is improved - with decreased pulmonary infiltrates. I have also reviewed the arterial blood gas. The arterial blood gas is also improved-- with a decrease in the alveolar arterial gradient. I will continue with the current ventilator settings for now. I would continue with the antibiotic coverage - as per infectious disease. The temperatures have now fully resolved. I would continue with the neurologic and cardiology evaluations. Inputs are noted. Input by Amanda Clay (palliative care) is also noted. It appears that the patient will undergo tracheostomy and PEG placement in the next few days. We are awaiting the final decisions from the family. Unfortunately, the overall status/prognosis for this patient is poor. I will discuss the above with the entire ICU team in the next few moments. I will also discuss the above with the attending physician. Sacha Hopkins MD cc: [phone] TT: 04/05/2017 09:37:49 Confirmation # [id number] Dictation # [id number] mn MTDD
--- NOTE | 2017-04-05 10:27 | CP.PCM.PN ---
Subjective - Date & Time of Evaluation Date of Evaluation: 04/05/17 Time of Evaluation: 06:45 - Subjective Subjective: Internal Medicine Progress Note for Dr. Vargas/Dr. Escalante service Patient seen and examined at bedside in the ICU. Today is hospital day 10. No acute events overnight. Patient remains intubated, off sedation but minimally responsive, only to reflex testing and withdrawal from noxious stimuli, so ROS remains unobtainable. at bedside, intermittently tearful. Pending trach/ peg placement today. Objective - Vital Signs/Intake and Output Vital Signs (last 24 hours): Temp Pulse Resp BP Pulse Ox 98.8 F 76 21 134/58 L 95 04/05/17 08:00 04/05/17 07:01 04/05/17 07:17 04/05/17 07:01 04/05/17 07:17 Intake and Output: 04/05/17 04/05/17 06:59 18:59 Intake Total 1020 Output Total 1000 Balance 20 - Medications Medications: Current Medications Albuterol/Ipratropium (Duoneb 3 Mg/0.5 Mg (3 Ml) Ud) 3 ml IH [id number] [facility] Last Admin: 04/05/17 07:10 Dose: 3 ml Budesonide (Pulmicort Respules) 0.5 mg IH [id number] [facility] Last Admin: 04/05/17 07:10 Dose: 0.5 mg Heparin Sodium (Porcine) (Heparin) 5,000 units SC Q8 [facility] PRN Reason: Protocol Last Admin: 04/04/17 14:04 Dose: 5,000 units Hydralazine HCl (Apresoline) 25 mg PO QID [facility] Last Admin: 04/04/17 21:20 Dose: 25 mg Linezolid (Zyvox 600mg/300ml D5w) 600 mg in 300 mls @ 200 mls/hr IVPB Q12 [facility] PRN Reason: Protocol Stop: 04/06/17 10:01 Last Admin: 04/04/17 21:22 Dose: 200 mls/hr Meropenem 1g/NS 100mL IVPB (Meropenem 1g/Ns 100ml Ivpb) 1 gm in 100 mls @ 100 mls/hr IVPB Q8 [facility] PRN Reason: Protocol Stop: 04/11/17 08:46 Last Admin: 04/05/17 08:08 Dose: 100 mls/hr Insulin Human Regular (Humulin R Med) 0 units SC Q6 [facility] PRN Reason: Protocol Last Admin: 04/05/17 07:00 Dose: Not Given Isosorbide Mononitrate (Ismo) 10 mg PO 0800,1500 [facility] Last Admin: 04/04/17 14:04 Dose: 10 mg Lorazepam (Ativan) 1 mg IVP Q6H PRN; Protocol PRN Reason: Seizure activity Last Admin: 03/28/17 08:00 Dose: 1 mg Metoprolol Tartrate (Lopressor) 25 mg PO BRKDIN [facility] Last Admin: 04/05/17 06:00 Dose: Not Given Pantoprazole Sodium (Protonix Inj) 40 mg IVP DAILY [facility] Last Admin: 04/04/17 10:09 Dose: 40 mg Polyethylene Glycol (Miralax) 17 gm PO BID [facility] Last Admin: 04/04/17 17:43 Dose: 17 gm Ramipril (Altace) 2.5 mg PO DAILY [facility] Last Admin: 04/04/17 10:08 Dose: 2.5 mg - Labs Labs: 04/05/17 06:30 04/05/17 06:30 PT 12.2 Seconds (9.9-11.8) H 04/03/17 05:00 INR 1.13 (0.93-1.08) H 04/03/17 05:00 APTT 27.5 Seconds (23.7-30.8) 04/01/17 06:35 - Additional Findings Additional findings: - Constitutional Other (Intubated but not sedated, ill-appearing, minimally responsive, rare spontaneous movements (primarily twitches), no purposeful movements, withdraws only from noxious stimuli) - Head Exam ATRAUMATIC, NORMOCEPHALIC - Eye Exam Normal appearance. absent: Conjunctival injection, Normal Pupils (pupils fixed and pinpoint, minimally responsive bilaterally to direct light challenge for PERRL assessment), EOMI (not following commands, no avoidance of direct light challenge for PERRL assessment), Scleral icterus - ENT Exam Mucous Membranes Moist - Neck Exam Trachea midline, No spontaneous head movements, but passive ROM appears fully intact, not holding head rigidly - Respiratory Exam Intubated, on mechanical ventilation of 40% FiO2, 8 Peep, 21 RR, and 450 TV Not overbreathing the vent, only at vent rate during exam Mild diffuse crackles in all mclean ausculated No wheezes or ronchi Breath sounds present in all ausculated mclean anteriorly and laterally - Cardiovascular Exam REGULAR RHYTHM, RRR, +S1, +S2. absent: Bradycardia, Tachycardia, Irregular Rhythm, +S4 - GI/Abdominal Exam Soft, Normal Bowel Sounds. absent: Distended, Firm, Rigid, Diminished Bowel Sounds, Hyperactive Bowel Sounds, Hypoactive Bowel Sounds - Extremities Exam Pitting edema +1-2 from feet to inferior to patellar tendon bilaterally, trace - +1 pitting edema above knees to mid-thigh bilaterally No knee swelling/effusion bilaterally +2 radial pulses bilaterally, unable to palpate dorsalis pedis or posterior tibial pulses No spontaneous movement noted during exam of bilateral upper or lower extremities, holding all extremities limp - Neurological Exam Intubated but not sedated Withdraws from noxious stimuli (i.e. sternal rub) only, no responsiveness to non -noxious physical stimuli or verbal stimuli Bilateral patellar reflexes intact - Psychiatric Exam Unable to assess due to unresponsive state - Skin Dry, Intact, Normal Color (some age related changes, otherwise normal coloring) , Warm Assessment and Plan - Assessment and Plan (Free Text) Assessment: This is a 71 yo M with PMH of HTN, DM, HLD, CAD s/p 3 stents, COPD, and ARIELLE s/p cardiac arrest with ROSC. S/p Hypothermia protocol. Appears to have suffered Anoxic encephalopathy 2/2 cardiac arrest with no likelihood of meaningful recovery. Pending Trach/PEG placement today, then pending placement to LTAC. Plan: 1) Anoxic encephalopathy 2/2 cardiac arrest -Found down unresponsive in the field in VFib, ROSC in the field after CPR with 3 shocks, 1x epinephrine, 300mg Amiodarone x1, and intubation -Unresponsive since arrest despite regaining normal sinus rhythm -S/p hypothermia protocol, initiated after arrival by ICU and Cardiology teams and since discontinued -EEG results revealed presence of bursts of myoclonic activity followed by periods of slowing consistent with underlying anoxic encephalopathy -Repeat EEG showed wave bursts of myoclonic activity which correlates with poor prognosis -Continue with neurochecks -CT head reviewed and revealed 3cm mass in the left frontal lobe with vasogenic edema -MRI Brain reviewed; revealed extra-axial mass of ~2cm consistent with meningioma; see full report -Continue with keppra and phenytoin per neurology recommendations -Blood and urine cultures negative; procalcitonin was elevated -Continue with meropenem and vancomycin per ID recommendations -Patient started on enteral feeds with jevity @60cc/hr, remains intubated on PRVC 450/40%/21 RR/8 Peep; pending Trach/PEG -Neuro (Dr. Ni Mills) consulted, appreciate all recs; continue seizure ppx, will need Trach/PEG and likely LTAC, signed off -Palliative following (Augusta Clay), appreciate all help -Surgery (Dr. Salas) consulted for Trach/PEG; pending placement today 2) Cardiogenic edema -CXR reviewed and revealed pulmonary edema with right greater than left -Remains intubated on PRVC 450/40%/21 RR/8 Peep; pending Trach/PEG today -Echocardiogram revealed LVEF 74%, but on dobutamine drip at the time of echo, so results likely skewed -Continue ramipril/hydralazine for afterload reduction, imdur for preload reduction -Blood and urine cultures negative; procalcitonin was elevated -Continue with meropenem and vancomycin per ID recommendations -Cardio (Dr. Luu) following, appreciate all recs -Pulm (Dr. Godoy) following, appreciate all recs 3) Acute kidney injury: RESOLVED -Cr stable at 1.1 -Continue to monitor I's and O's 4) CAD -Continue Ramapril, Metoprolol, and Imdur -Cardio (Dr. Luu) following, appreciate all recs 5) DM type 2 -On enteral feeds -Continue with ISS; fingersticks ACHS 6) HLD -receiving enteral feeds, jevity @60cc/hr 7) Hx of ARIELLE and COPD -Remains intubated on PRVC 450/40%/21 RR/8 Peep; pending Trach/PEG today -CXR reviewed and revealed pulmonary edema with right greater than left -Continue Budesonide and Duonebs q12 for COPD -Pulm (Dr. Godoy) consulted, appreciate all recs Dispo: ICU pending trach/peg today, LTAC pending placement after trach/peg FEN: jevity @60cc/hr Access: Peripheral IVs, OGT, ETT, PICC, pending Trach/Peg placement Consults: ID, Pulm, Neuro (signed off), Cardio, ICU, Palliative, IR (for PICC placement) Ppx: Protonix for GI, Heparin for DVT Code Status: as per (POA), in accordance with previously discussed wishes of the patient, he is to remain full code despite the prognosis, due to personal pentecostal beliefs Patient seen, reviewed, and discussed with attending, Dr. Vargas.
[2017-04-05] MEDS: POLYETHYLENE GLYCOL 3350 17 GM/Dose PACKET PO SCH ×2 (10:53→17:12)
[2017-04-05] MEDS: Linezolid 600 mg in D5W 300 ml 600 MG/300 ML BAG IVPB SCH ×2 (10:55→21:33)
--- NOTE | 2017-04-05 10:59 | PCM.SURG1 ---
Surgeon's Initial Post Op Note - Surgeon's Notes Surgeon: [employer] Resource Officer: PGY3 Type of Anesthesia: General Endo Pre-Operative Diagnosis: Anoxic brain injury, vent dependent respiratory failure Operative Findings: see op note Post-Operative Diagnosis: Anoxic brain injury, vent dependent respiratory failure Operation Performed: Open Tracheostomy, open gastrostomy Specimen/Specimens Removed: N/A Estimated Blood Loss: EBL {In ML}: 5 Blood Products Given: N/A Drains Used: Ostomy Device (Gastrostomy tube) Post-Op Condition: Good Date of Surgery/Procedure: 04/05/17 Time of Surgery/Procedure: 08:15
--- NOTE | 2017-04-05 11:44 | PN ---
DATE: 04/05/2017 REASON FOR CONSULTATION AND FOLLOWUP: Cardiac evaluation status post CPR, cardiac arrest, possible a noxic encephalopathy, for PEG and tracheostomy today. BRIEF CLINICAL HISTORY: A 71-year-old male, morbidly obese, with past medical history of COPD, obstr uctive sleep apnea on home BiPAP, history of multiple PTCAs who collapsed at home while the patient w as taking a shower. CPR done, V-fib arrest, status post cardioverted, possible anoxic encephalopathy . Awaiting to go for PEG and trach today on vent. PHYSICAL EXAMINATION: VITAL SIGNS: Temperature afebrile, heart rate 7____, blood pressure 134/____8. HEENT: PERRLA. Extraocular muscles intact. NECK: Supple. No carotid bruits. No thyromegaly. CHEST: Clear to auscultation. HEART: S1, S2 regular. ABDOMEN: Soft. EXTREMITIES: Clubbing and cyanosis negative. LABORATORY DATA: Blood workup as follows: WBC 13, hemoglobin 12.8, hematocrit 40.5, platelet count 176. Chemistry shows sodium 13____, potassium 4.____, chloride 104, carbon dioxide 28, anion gap of 10, BUN 3____, creatinine 1.1, albumin 2.8. IMPRESSION: Anoxic encephalopathy, status post cardiopulmonary resuscitation, status post a ventricu lar tachycardia ventricular fibrillation arrest, history of multiple stents, history of obstructive s leep apnea on continuous positive airway pressure. At this point, he opens eyes and does not follow command, deep comatose. RECOMMENDATION: The patient is scheduled for PEG and tracheostomy today. Discussed with the . We will hold NG feeding for PEG and trach. Once it is done, we will resume back feeding. Continue I V meds until the PEG starts working and is replaced. Overall, the patient's clinical nursing home prognosis is guarded, possible rule out aspiration pneumonia . I will follow with you. Pauletet Luu MD cc: [phone] TT: 04/05/2017 11:43:47 Confirmation # [id number] Dictation # [id number] manpreet
--- NOTE | 2017-04-05 13:50 | RAD ---
HISTORY: s/p trach and peg COMPARISON: FINDINGS: LUNGS: Interval removal of endotracheal tube and placement of a tracheostomy tube in good position. NGT is present, the tip of which has not been included on the film though distal aspect does lie well below EG junction. Bilateral effusions left larger than right. There may also be some concomitant bibasilar atelectasis. Central pulmonary vasculature is slightly increased. PLEURA: No significant pleural effusion identified, no pneumothorax apparent. CARDIOVASCULAR: The heart is enlarged. OSSEOUS STRUCTURES: Multilevel degenerative spondylosis of the thoracic spine VISUALIZED UPPER ABDOMEN: Normal. OTHER FINDINGS: None. IMPRESSION: Interval removal of endotracheal tube and placement of a tracheostomy tube in good position. NGT is present, the tip of which has not been included on the film though distal aspect does lie well below EG junction. Bilateral effusions left larger than right. There may also be some concomitant bibasilar atelectasis. Central pulmonary vasculature is slightly increased.
--- NOTE | 2017-04-05 20:10 | OP ---
PROCEDURE DATE: 04/05/2017 PREOPERATIVE DIAGNOSES: Respiratory failure, malnutrition. POSTOPERATIVE DIAGNOSES: Respiratory failure, malnutrition. PROCEDURE PERFORMED: 1. Placement of the open gastrostomy tube. 2. Placement of the tracheostomy tube. SURGEON: Dr. Salas. PCT: Dr. Gayle. ANESTHESIOLOGIST: Dr. Jin. ANESTHESIA: General endotracheal anesthesia. ESTIMATED BLOOD LOSS: Minimal. SPECIMEN: None. INDICATION: The patient is a 71-year-old male with a history of cardiac arrest and anoxic brain inju ry who currently requires long-term ventilation as well as enteral feeding. The patient was schedule d for placement of the gastrostomy tube as well as placement of the tracheostomy tube. DESCRIPTION OF PROCEDURE: The patient was brought to the operating room and placed on the operating room table in supine position. The patient was connected to EKG, blood pressure and pulse oximeter m onitors. The patient then was connected to the anesthesia machine and was prepped and draped in usua l sterile fashion. First, timeout procedure took place where everybody in the room agreed as to the patient's identity, diagnosis and procedure to be performed. Using #15 blade, the incision was made midline in the mid epigastric area after the area was infiltra luma with lidocaine. The incision was carried through subcutaneous fat and fascia and access to the a bdominal cavity was obtained. The gastric wall was carefully identified and grabbed with 2 [place] c lamps. The area about 2 cm off the greater curvature of the anterior wall was then marked and 2 purs estring stitches were placed in a mi'kmaq. The opening to the gastric cavity was obtained using elect rocautery and then the 24-gauge gastrostomy tube was placed via the small incision to the left of the midline in the abdominal wall. Once the tube was brought in to the inside, it was then placed into the stomach and the 2 pursestring stitches were tied. The balloon was inflated with saline and appea red to be holding well. Now the stomach was attached to the anterior abdominal wall with multiple in terrupted 3-0 silk stitches. Once completely attached circumferentially around the exit site of the tube, I then proceeded with irrigating the stomach and the irrigant fluid was suctioned out through t he G-tube. At this point, I proceeded with closure of the abdominal wound using #1 PDS in a running fashion, 3-0 Vicryl for subcutaneous tissue and 4-0 Monocryl for skin. Sterile Dermabond dressing wa s applied to the wound. Now, the patient was redraped and a support roll was placed underneath his s houlder in order to expose the neck. The new sterile drapes were placed and we proceeded now with cr eation of the tracheostomy tube. First, a vertical incision was made with the marking being used as an anesthetic agent. The incision was carried through the subcutaneous fat, carefully down to the tr achea, just below the cricoid membrane. Once this was identified, the trachea was then carefully marlys ared from the surrounding on the anterior wall and 3rd, 4th and 5th rings of the trachea were i dentified. An incision was made in those 3 rings, opening them up and the dilator was used in order to open up into the trachea. At this point, the endotracheal tube was removed and a Shiley #6 trache ostomy tube was placed into the trachea. The balloon was inflated and the tracheostomy tube was conn ected to the ventilator and there was good ventilation obtained with good return of CO2 and therefore , the wound was copiously irrigated and the irrigation fluid was suctioned out and the wound was clos ed in layers using 3-0 Vicryl for deep fatty layer and 3-0 Vicryl mattress stitches for skin closure. The wound was then covered with sterile dressing. The patient tolerated the procedure well and the re were no complications. The patient was transferred to the recovery room and into the ICU for furt her treatment. Luis Salas MD cc: [id number] TT: 04/05/2017 20:09:56 misa
[2017-04-06] MEDS: Insulin Reg-MEDIUM-Coverage SC SCH ×3 (00:38→12:21)
[2017-04-06] MEDS: Meropenem 1g/NS 100mL IVPB 1 GM/100 ML PIGGYBACK IVPB SCH (05:02)
[2017-04-06 06:45] LABS: ARTERIAL BLOOD GAS HCO3 26.1 mmol/L (21-28); ARTERIAL BLOOD GAS O2 CONTENT 22.1 ML/dl (15-23); ARTERIAL BLOOD GAS PH 7.48 (7.35-7.45); ARTERIAL BLOOD HGB O2 SAT 92.5 % (95.0-98.0); CARBOXYHEMOGLOBIN 2.5 % (0.5-1.5)
[2017-04-06 07:06] LABS: ADD MANUAL DIFF? NO
[2017-04-06] MEDS: Budesonide 0.5 mg/2 ml Inhal Susp UD IH SCH (07:13)
[2017-04-06] MEDS: Albuterol-Ipratrop 3 mg / 0.5 (3 ml) UD IH SCH (07:13)
[2017-04-06 07:15] LABS: BASO # 0.02 K/mm3 (0.0-2.0); BASO % 0.1 % (0.0-3.0); EOS # 0.2 (0.0-0.7); GRAN # 11.81 (1.4-6.5); GRAN % 78.5 % (50.0-68.0); LYMPH # 1.9 (1.2-3.4); LYMPH % 12.5 % (22.0-35.0); MEAN CELL VOLUME 85.7 fL (80.0-105.0); MEAN CORPUSCULAR HEMOGLOBIN 27.5 pg (25.0-35.0); MEAN CORPUSCULAR HGB CONC 32.1 g/dl (31.0-37.0); MEAN PLATELET VOLUME 11.9 fl (7.0-11.0); MONO # 1.2 (0.1-0.6); MONO % 7.9 % (1.0-6.0); PLATELET COUNT 197 10^3/uL (120.0-450.0); RED CELL DISTRIBUTION WIDTH 15.8 % (11.5-14.5); WHITE BLOOD COUNT 15.1 10^3/ul (4.5-11.0)
[2017-04-06 07:22] LABS: ALB/GLOB RATIO 0.9 (1.1-1.8); ALKALINE PHOSPHATASE 113 U/L (38-133); ALT/SGPT 38 U/L (7-56); AST/SGOT 61 U/L (15-59); BILIRUBIN,TOTAL 1.1 mg/dL (0.2-1.3); BLOOD UREA NITROGEN 36 mg/dL (7-21); CALCIUM 8.7 mg/dL (8.4-10.5); CARBON DIOXIDE 27 mmol/L (21-33); CHLORIDE 103 mmol/L (95-110); GFR AFRICAN-AMERICAN > 60; GLUCOSE,RANDOM 129 mg/dL (70-110); POTASSIUM 3.7 mmol/L (3.6-5.0); SODIUM 139 mmol/L (132-148); TOTAL PROTEIN 5.8 g/dL (5.8-8.3)
--- NOTE | 2017-04-06 07:36 | CP.PCM.PN ---
<Naty Vallejo - Last Filed: 04/06/17 10:44> Subjective - Date & Time of Evaluation Date of Evaluation: 04/06/17 Time of Evaluation: 07:32 - Subjective Subjective: ICU Progress Note Patient seen and examined at bedside. There were no acute overnight events. Patient received trach and peg yesterday without any complications. Off sedation for several days and non-verbal. ROS could not be obtained. Objective - Vital Signs/Intake and Output Vital Signs (last 24 hours): Temp Pulse Resp BP Pulse Ox 98.8 F 64 21 126/65 94 L 04/06/17 05:00 04/06/17 05:00 04/06/17 07:22 04/06/17 05:00 04/06/17 07:22 Intake and Output: 04/06/17 04/06/17 06:59 18:59 Intake Total 860 Output Total 700 Balance 160 - Medications Medications: Current Medications Albuterol/Ipratropium (Duoneb 3 Mg/0.5 Mg (3 Ml) Ud) 3 ml IH [id number] [facility] Last Admin: 04/06/17 07:13 Dose: 3 ml Budesonide (Pulmicort Respules) 0.5 mg IH [id number] [facility] Last Admin: 04/06/17 07:13 Dose: 0.5 mg Heparin Sodium (Porcine) (Heparin) 5,000 units SC Q8 [facility] PRN Reason: Protocol Last Admin: 04/04/17 14:04 Dose: 5,000 units Hydralazine HCl (Apresoline) 25 mg PO QID [facility] Last Admin: 04/05/17 21:36 Dose: 25 mg Linezolid (Zyvox 600mg/300ml D5w) 600 mg in 300 mls @ 200 mls/hr IVPB Q12 [facility] PRN Reason: Protocol Stop: 04/06/17 10:01 Last Admin: 04/05/17 21:33 Dose: 200 mls/hr Meropenem 1g/NS 100mL IVPB (Meropenem 1g/Ns 100ml Ivpb) 1 gm in 100 mls @ 100 mls/hr IVPB Q8 [facility] PRN Reason: Protocol Stop: 04/11/17 08:46 Last Admin: 04/06/17 05:02 Dose: 100 mls/hr Dextrose (Dextrose 5% In Water 1000 Ml) 1,000 mls @ 30 mls/hr IV .Q24H [facility] Last Admin: 04/05/17 17:12 Dose: 30 mls/hr Insulin Human Regular (Humulin R Med) 0 units SC Q6 [facility] PRN Reason: Protocol Last Admin: 04/06/17 05:03 Dose: Not Given Isosorbide Mononitrate (Ismo) 10 mg PO 0800,1500 [facility] Last Admin: 04/05/17 16:24 Dose: 10 mg Lorazepam (Ativan) 1 mg IVP Q6H PRN; Protocol PRN Reason: Seizure activity Last Admin: 03/28/17 08:00 Dose: 1 mg Metoprolol Tartrate (Lopressor) 25 mg PO BRKDIN [facility] Last Admin: 04/05/17 16:25 Dose: 25 mg Pantoprazole Sodium (Protonix Inj) 40 mg IVP DAILY [facility] Last Admin: 04/05/17 10:53 Dose: 40 mg Polyethylene Glycol (Miralax) 17 gm PO BID [facility] Last Admin: 04/05/17 17:12 Dose: 17 gm Ramipril (Altace) 2.5 mg PO DAILY [facility] Last Admin: 04/05/17 10:49 Dose: 2.5 mg - Labs Labs: 04/06/17 06:40 04/05/17 06:30 PT 12.2 Seconds (9.9-11.8) H 04/03/17 05:00 INR 1.13 (0.93-1.08) H 04/03/17 05:00 APTT 27.5 Seconds (23.7-30.8) 04/01/17 06:35 - Constitutional Appears: No Acute Distress - Head Exam Head Exam: ATRAUMATIC, NORMAL INSPECTION, NORMOCEPHALIC - Eye Exam Eye Exam: Normal appearance, PERRL Pupil Exam: PERRL - ENT Exam ENT Exam: Mucous Membranes Moist - Neck Exam Additional comments: trach in place- clean and dry - Respiratory Exam Respiratory Exam: Rhonchi, NORMAL BREATHING PATTERN. absent: Rales, Wheezes - Cardiovascular Exam Cardiovascular Exam: REGULAR RHYTHM, +S1, +S2. absent: Gallop, Rubs, Murmur - GI/Abdominal Exam GI & Abdominal Exam: Soft, Normal Bowel Sounds Additional comments: peg in place- clean and dry - Extremities Exam Extremities Exam: Pedal Edema - Neurological Exam Neurological Exam: CN II-XII Intact Additional comments: Withdraws to pain. Opens eyes spontaneously. Does not follow commands. - Skin Skin Exam: Dry, Normal Color, Warm Assessment and Plan - Assessment and Plan (Free Text) Assessment: This is a 71Y M with PMH HTN, DM, HLD, CAD s/p 3 stents, COPD, ARIELLE s/p cardiac arrest with ROSC and anoxic encephalopathy. Hypothermia protocol was initiated upon admission and has been warmed up. Patient noted to have brain stem reflexes , but vegetative state. Pt has trach and peg POD #1. Plan: Neuro: GCS of 8. Stable since admission Pt has anoxic encephalopathy s/p cardiac arrest Maintain Normothermia CV: BP and HR stable Continue home BP medications Cardio consulted- recs appreciated Resp: Maintain spO2>90% Continue protective lung ventilation strategy Trach in place Continue SBT as tolerated GI: Peg in place Feeds restarted today Monitor I&O /Neprho: Monitor electrolytes and will replace as needed Maintain euvolemia Heme: Monitor CBC, Hgb stable at this time ID: Pt on Merrem and Linezolid Mild elevation in leukocytosis, can be secondary to trach and peg placement yesterday Afebrile ID consulted-recs appreciated Endo: Continue to maintain euglycemia Maintain BG between 140-180s GI ppx: Pepcid IVP DVT ppx: Heparin SC q8h Dispo: Accepted into [facility]- will be transferred today. Case seen, discussed and reviewed with attending. Alton Vallejo PGY1 <Rom Lao B - Last Filed: 04/06/17 17:50> Objective - Vital Signs/Intake and Output Vital Signs (last 24 hours): Temp Pulse Resp BP Pulse Ox 98.4 F 82 21 135/63 94 L 04/06/17 14:00 04/06/17 14:00 04/06/17 07:22 04/06/17 14:00 04/06/17 14:00 Intake and Output: 04/06/17 04/06/17 06:59 18:59 Intake Total 860 Output Total 700 Balance 160 - Labs Labs: 04/06/17 06:40 04/06/17 06:40 PT 12.2 Seconds (9.9-11.8) H 04/03/17 05:00 INR 1.13 (0.93-1.08) H 04/03/17 05:00 APTT 27.5 Seconds (23.7-30.8) 04/01/17 06:35 Attending/Attestation - Attestation I have personally seen and examined this patient.: Yes I have fully participated in the care of the patient.: Yes I have reviewed all pertinent clinical information, including history, physical exam and plan: Yes Notes (Text): 04/06/17 17:48 71 yo with anoxic brain injury after cardiac arrest, s/p trac and peg. going to [facility] today. hemodyanmically and respiratory relatively stable for trasnfer ccm time 40 min
--- NOTE | 2017-04-06 08:22 | CP.PCM.PN ---
Subjective - Date & Time of Evaluation Date of Evaluation: 04/06/17 Time of Evaluation: 07:20 - Subjective Subjective: General Surgery Pt S&E, intubated, responds to pain occasionally. No response to verbal stimuli. Some small amount bleeding from trach site. G-tube functioning well, no residuals. Objective - Vital Signs/Intake and Output Vital Signs (last 24 hours): Temp Pulse Resp BP Pulse Ox 98.8 F 64 21 126/65 94 L 04/06/17 05:00 04/06/17 05:00 04/06/17 07:22 04/06/17 05:00 04/06/17 07:22 Intake and Output: 04/06/17 04/06/17 06:59 18:59 Intake Total 860 Output Total 700 Balance 160 - Medications Medications: Current Medications Albuterol/Ipratropium (Duoneb 3 Mg/0.5 Mg (3 Ml) Ud) 3 ml IH [id number] [facility] Last Admin: 04/06/17 07:13 Dose: 3 ml Budesonide (Pulmicort Respules) 0.5 mg IH [id number] [facility] Last Admin: 04/06/17 07:13 Dose: 0.5 mg Heparin Sodium (Porcine) (Heparin) 5,000 units SC Q8 [facility] PRN Reason: Protocol Last Admin: 04/04/17 14:04 Dose: 5,000 units Hydralazine HCl (Apresoline) 25 mg PO QID [facility] Last Admin: 04/05/17 21:36 Dose: 25 mg Linezolid (Zyvox 600mg/300ml D5w) 600 mg in 300 mls @ 200 mls/hr IVPB Q12 [facility] PRN Reason: Protocol Stop: 04/06/17 10:01 Last Admin: 04/05/17 21:33 Dose: 200 mls/hr Meropenem 1g/NS 100mL IVPB (Meropenem 1g/Ns 100ml Ivpb) 1 gm in 100 mls @ 100 mls/hr IVPB Q8 [facility] PRN Reason: Protocol Stop: 04/11/17 08:46 Last Admin: 04/06/17 05:02 Dose: 100 mls/hr Dextrose (Dextrose 5% In Water 1000 Ml) 1,000 mls @ 30 mls/hr IV .Q24H [facility] Last Admin: 04/05/17 17:12 Dose: 30 mls/hr Insulin Human Regular (Humulin R Med) 0 units SC Q6 [facility] PRN Reason: Protocol Last Admin: 04/06/17 05:03 Dose: Not Given Isosorbide Mononitrate (Ismo) 10 mg PO 0800,1500 [facility] Last Admin: 04/05/17 16:24 Dose: 10 mg Lorazepam (Ativan) 1 mg IVP Q6H PRN; Protocol PRN Reason: Seizure activity Last Admin: 03/28/17 08:00 Dose: 1 mg Metoprolol Tartrate (Lopressor) 25 mg PO BRKDIN [facility] Last Admin: 04/05/17 16:25 Dose: 25 mg Pantoprazole Sodium (Protonix Inj) 40 mg IVP DAILY [facility] Last Admin: 04/05/17 10:53 Dose: 40 mg Polyethylene Glycol (Miralax) 17 gm PO BID [facility] Last Admin: 04/05/17 17:12 Dose: 17 gm Ramipril (Altace) 2.5 mg PO DAILY [facility] Last Admin: 04/05/17 10:49 Dose: 2.5 mg - Labs Labs: 04/06/17 06:40 04/06/17 06:40 PT 12.2 Seconds (9.9-11.8) H 04/03/17 05:00 INR 1.13 (0.93-1.08) H 04/03/17 05:00 APTT 27.5 Seconds (23.7-30.8) 04/01/17 06:35 - Constitutional Appears: No Acute Distress, Chronically Ill - Head Exam Head Exam: ATRAUMATIC, NORMOCEPHALIC - Eye Exam Eye Exam: absent: Conjunctival injection, Scleral icterus - ENT Exam ENT Exam: Mucous Membranes Moist Additional comments: Trach in place, small amount of bleeding - Respiratory Exam Respiratory Exam: NORMAL BREATHING PATTERN (on vent). absent: Respiratory Distress - GI/Abdominal Exam GI & Abdominal Exam: Soft. absent: Distended, Guarding, Tenderness Additional comments: incision C/D/I, G-tube in place and functioning well - Neurological Exam Neurological Exam: absent: Alert - Skin Skin Exam: Warm Assessment and Plan - Assessment and Plan (Free Text) Assessment: 71M with respiratory failure and malnutrition S/P Open trach and open gastrostomy tube placement POD#1 Plan: Ok to start tube feeds @ 30cc/hr. Increase by 10cc per hour until at goal rate. Check residuals Q2H. Hold tube feeds for 2 hours if more than 400cc. Changed packing around trach. Will D/W Dr. Maritza Gayle PGY3
--- NOTE | 2017-04-06 08:33 | PN ---
DATE: 04/06/2017 The patient remains on the ventilator. He remains poorly responsive. PHYSICAL EXAMINATION: VITAL SIGNS: Temperature is 98.8, pulse 64, respirations 21/21, blood pressure 126/65. HEENT: Normocephalic, positive tracheostomy. No JVD. CARDIOVASCULAR: Positive S1, S2. No S3. LUNGS: Decreased breath sounds at the bases. Very minimal/less rhonchi. No wheezing. EXTREMITIES: Mild edema. No cyanosis, no clubbing. GASTROINTESTINAL: Abdomen is soft, nondistended. Bowel sounds are positive. + PEG. SKIN: No acute rash. NEUROLOGIC: Limited at the present time. PERTINENT LABORATORY DATA: Chest x-ray was done this morning and reviewed. The chest x-ray is improved-- with decreased pulmonary infiltrates. Arterial blood gas was done on assist control 21, tidal volume 450, FiO2 40%, PEEP 10. Results are: pH 7.48, pCO2 35, pO2 of 69. IMPRESSION: 1. Ventricular fibrillation arrest, status post cardiopulmonary resuscitation. 2. Respiratory failure. 3. Coronary artery disease. 4. Chronic obstructive pulmonary disease. 5. Probable aspiration pneumonia. 6. Encephalopathy. PLAN: The patient remains in the ICU and on the ventilator. He remains poorly responsive. He is not sedated. I did discuss the case with the night nurse at length. Again, unfortunately, the nurse confirms that the patient has not improved neurologically. He is status post tracheostomy and PEG placement. I did review the chest x-ray from this morning. The x-ray continues to improve - - with resolving pulmonary infiltrates. I have also reviewed the arterial blood gas. The arterial blood gas remains with a mild increase in the alveolar- arterial gradient. I would continue with the current ventilator settings for now. I would continue with the antibiotic coverage as per infectious disease. Input by Dr. Simmons is noted. The temperatures have fully resolved. I would continue with the cardiology and neurologic evaluations. Inputs are noted. Again, unfortunately, the patient has not regained a meaningful neurologic status. I did discuss the case with Dr. Vargas and the at length yesterday. The patient's overall status/prognosis remains very poor. I will discuss the above with the entire ICU team in the next few moments. I will also discuss the above with Dr. Vargas later this morning. Sacha Hopkins MD cc: [phone] TT: 04/06/2017 08:33:20 Confirmation # [id number] Dictation # [id number] en MTDD
[2017-04-06] MEDS: Linezolid 600 mg in D5W 300 ml 600 MG/300 ML BAG IVPB SCH (10:09)
[2017-04-06] MEDS: POLYETHYLENE GLYCOL 3350 17 GM/Dose PACKET PO SCH (10:10)
--- NOTE | 2017-04-06 10:29 | RAD ---
HISTORY: f/u COMPARISON: 04/05/2017 FINDINGS: There is stable position of the tracheostomy tube. The nasogastric tube terminates in the stomach. LUNGS: The lungs are clear. PLEURA: No significant pleural effusion identified, no pneumothorax apparent. CARDIOVASCULAR: There is persistent moderate cardiomegaly. OSSEOUS STRUCTURES: No significant abnormalities. VISUALIZED UPPER ABDOMEN: Normal. OTHER FINDINGS: None. IMPRESSION: No active pulmonary disease. Persistent moderate cardiomegaly.
--- NOTE | 2017-04-06 12:18 | CP.PCM.PN ---
Subjective - Date & Time of Evaluation Date of Evaluation: 04/06/17 Time of Evaluation: 09:10 - Subjective Subjective: Had tracheostomy done yesterday. Continues to be poorly responsive and on the ventilator. No fevers overnight. Objective - Vital Signs/Intake and Output Vital Signs (last 24 hours): Temp Pulse Resp BP Pulse Ox 98.8 F 76 21 134/58 L 95 04/05/17 08:00 04/05/17 07:01 04/05/17 07:17 04/05/17 07:01 04/05/17 07:17 Intake and Output: 04/05/17 04/05/17 06:59 18:59 Intake Total 1020 Output Total 1000 Balance 20 - Medications Medications: Current Medications Albuterol/Ipratropium (Duoneb 3 Mg/0.5 Mg (3 Ml) Ud) 3 ml IH [id number] [facility] Last Admin: 04/05/17 07:10 Dose: 3 ml Budesonide (Pulmicort Respules) 0.5 mg IH [id number] [facility] Last Admin: 04/05/17 07:10 Dose: 0.5 mg Heparin Sodium (Porcine) (Heparin) 5,000 units SC Q8 [facility] PRN Reason: Protocol Last Admin: 04/04/17 14:04 Dose: 5,000 units Hydralazine HCl (Apresoline) 25 mg PO QID [facility] Last Admin: 04/04/17 21:20 Dose: 25 mg Linezolid (Zyvox 600mg/300ml D5w) 600 mg in 300 mls @ 200 mls/hr IVPB Q12 [facility] PRN Reason: Protocol Stop: 04/06/17 10:01 Last Admin: 04/04/17 21:22 Dose: 200 mls/hr Meropenem 1g/NS 100mL IVPB (Meropenem 1g/Ns 100ml Ivpb) 1 gm in 100 mls @ 100 mls/hr IVPB Q8 [facility] PRN Reason: Protocol Stop: 04/11/17 08:46 Last Admin: 04/05/17 08:08 Dose: 100 mls/hr Insulin Human Regular (Humulin R Med) 0 units SC Q6 [facility] PRN Reason: Protocol Last Admin: 04/05/17 07:00 Dose: Not Given Isosorbide Mononitrate (Ismo) 10 mg PO 0800,1500 [facility] Last Admin: 04/04/17 14:04 Dose: 10 mg Lorazepam (Ativan) 1 mg IVP Q6H PRN; Protocol PRN Reason: Seizure activity Last Admin: 03/28/17 08:00 Dose: 1 mg Metoprolol Tartrate (Lopressor) 25 mg PO BRKDIN [facility] Last Admin: 04/05/17 06:00 Dose: Not Given Pantoprazole Sodium (Protonix Inj) 40 mg IVP DAILY [facility] Last Admin: 04/04/17 10:09 Dose: 40 mg Polyethylene Glycol (Miralax) 17 gm PO BID [facility] Last Admin: 04/04/17 17:43 Dose: 17 gm Ramipril (Altace) 2.5 mg PO DAILY [facility] Last Admin: 04/04/17 10:08 Dose: 2.5 mg - Labs Labs: 04/05/17 06:30 04/05/17 06:30 PT 12.2 Seconds (9.9-11.8) H 04/03/17 05:00 INR 1.13 (0.93-1.08) H 04/03/17 05:00 APTT 27.5 Seconds (23.7-30.8) 04/01/17 06:35 - Constitutional Appears: Other (on the ventilator) - Head Exam Head Exam: NORMAL INSPECTION - ENT Exam Additional comments: tracheostomy tube in place - Neck Exam Neck Exam: absent: Meningismus - Respiratory Exam Respiratory Exam: Decreased Breath Sounds - Cardiovascular Exam Cardiovascular Exam: +S1, +S2 - GI/Abdominal Exam GI & Abdominal Exam: Soft. absent: Tenderness Assessment and Plan - Assessment and Plan (Free Text) Plan: Assessment Systemic Inflammatory Response Syndrome (leukocytosis and hypothermia) probably due to cardiorespiratory arrest, R/O acute coronary syndrome; sepsis due to probable aspiration pneumonia, clinically improved acute on chronic renal failure CAD S/P PCI chronic CHF DM HTN hyothyroidism history of right arm surgery Plan on Merrem and Zyvox day 9 - will d/c antibiotics and observe reviewed Cardiology and Pulmonary recommendations will continue to monitor clinically Patient's overall prognosis is poor and family is aware discussed EEG findings with Neurology and it is compatible with anoxic brain injury
[2017-04-06 12:19] VITALS: TEMP 98.4
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
[2017-04-06 14:11] VITALS: BP 135/63; PULSE 82; O2SAT 94
[2017-04-06] MEDS ORDERED: Potassium Chloride 20 mEq/15 ml LIQ UD PO STA (14:28)
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
--- NOTE | 2017-04-06 14:48 | PN ---
DATE: 04/06/2017 REASON FOR CONSULTATION AND FOLLOWUP: Cardiac evaluation, status post CPR, cardiac arrest, anoxic en cephalopathy, status post PEG, status post tracheostomy. BRIEF CLINICAL HISTORY: A 71-year-old male, morbidly obese, with a past medical history of COPD, obs tructive sleep apnea on home BiPAP, history of multiple PTCAs who collapsed at home while was taking shower, CPR done, V-fib arrest, status post cardioverted, possible anoxic encephalopathy, status post PEG and trach, possible discharge to subacute, LTAC. PHYSICAL EXAMINATION: VITAL SIGNS: Temperature afebrile, heart rate 82, blood pressure 135/63. HEENT: PERRLA. Extraocular muscles intact. NECK: Supple. No carotid bruits. No thyromegaly. CHEST: Clear to auscultation. HEART: S1 and S2 regular. ABDOMEN: Soft. EXTREMITIES: Clubbing, cyanosis negative. BLOOD WORKUP: WBC 15.9, hemoglobin 12.5, hematocrit 39, platelet count 197. Chemistry shows sodium 139, potassium 3. , chloride 103, carbon dioxide 23, anion gap of 13, BUN 36, creatinine 1.1. To neetu protein 5.8, albumin 2.7, albumin/globulin ratio 0.9. IMPRESSION: Anoxic encephalopathy, status post percutaneous endoscopic gastrostomy, status post trac heostomy, status post cardiopulmonary resuscitation, ventricular fibrillation arrest, history of CPAP , history of obstructive sleep apnea on CPAP, history of multiple stents. RECOMMENDATION: Continue NG feeding. Continue ramipril. Continue isosorbide. Continue metoprolol. Simplify the drug regimen and continue supportive care. Overall, the patient's condition is critic al. Halfway prognosis is guarded. We will follow with you. Thank you, Dr. Vargas, for providing us the opportunity in taking care of the patient. We will fol low with you. We will simplify the regimen. We will increase ramipril to 10 mg daily and put hydral azine p.r.n. Paulette Luu MD cc: [id number] TT: 04/06/2017 14:47:18 Confirmation # [id number] Dictation # [id number]
[2017-04-06] MEDS ORDERED: Pneumococcal 23-Valent Vaccine IM ONE (14:56)
== END 2017-04-06 16:19 | DRG 3 ==
LOC: ED 11:38 → ERH 12:26 → CCU 13:34
PROVIDERS: ADMIT Internal Medicine; ATTEND Internal Medicine
PROC: 5A1955Z Respiratory Ventilation, Greater than 96 Consecutive Hours (ICD-10-PCS; 2017-03-27)
PROC: 3E0F7GC Introduction of Other Therapeutic Substance into Respiratory Tract, Via Natural or Artificial Opening (ICD-10-PCS; 2017-03-27)
PROC: 02HV33Z Insertion of Infusion Device into Superior Vena Cava, Percutaneous Approach (ICD-10-PCS; 2017-03-29)
PROC: 3E03328 Introduction of Oxazolidinones into Peripheral Vein, Percutaneous Approach (ICD-10-PCS; 2017-03-30)
PROC: 0B110F4 Bypass Trachea to Cutaneous with Tracheostomy Device, Open Approach (ICD-10-PCS; principal; 2017-04-05 08:00)
PROC: 0DH60UZ Insertion of Feeding Device into Stomach, Open Approach (ICD-10-PCS; 2017-04-05 08:00)
DX: I49.01 Ventricular fibrillation (principal); G93.1 Anoxic brain damage, not elsewhere classified; G93.6 Cerebral edema; I21.3 ST elevation (STEMI) myocardial infarction of unspecified site; J69.0 Pneumonitis due to inhalation of food and vomit; J96.90 Respiratory failure, unspecified, unspecified whether with hypoxia or hypercapnia; I46.2 Cardiac arrest due to underlying cardiac condition; N17.9 Acute kidney failure, unspecified; E46 Unspecified protein-calorie malnutrition; I13.0 Hypertensive heart and chronic kidney disease with heart failure and stage 1 through stage 4 chronic kidney disease, or unspecified chronic kidney disease; Z99.11 Dependence on respirator [ventilator] status; E11.65 Type 2 diabetes mellitus with hyperglycemia; I50.9 Heart failure, unspecified; I25.10 Atherosclerotic heart disease of native coronary artery without angina pectoris; J44.9 Chronic obstructive pulmonary disease, unspecified; E03.9 Hypothyroidism, unspecified; G47.33 Obstructive sleep apnea (adult) (pediatric); E66.01 Morbid (severe) obesity due to excess calories; N18.9 Chronic kidney disease, unspecified; E78.5 Hyperlipidemia, unspecified; M19.90 Unspecified osteoarthritis, unspecified site; I48.2 Chronic atrial fibrillation; Z79.01 Long term (current) use of anticoagulants; R56.9 Unspecified convulsions; E11.22 Type 2 diabetes mellitus with diabetic chronic kidney disease; D32.0 Benign neoplasm of cerebral meninges; K59.00 Constipation, unspecified; I47.2 Ventricular tachycardia; R40.2434 Glasgow coma scale score 3-8, 24 hours or more after hospital admission; G25.3 Myoclonus; E78.00 Pure hypercholesterolemia, unspecified; W19.XXXA Unspecified fall, initial encounter; Y92.002 Bathroom of unspecified non-institutional (private) residence as the place of occurrence of the external cause; Z95.5 Presence of coronary angioplasty implant and graft; Z87.891 Personal history of nicotine dependence